=== PATIENT | male | born 1990 | race Caucasian/White ===

== ENCOUNTER 2023-10-31 18:36 | Emergency (ER) | payer BC, SELFPAY ==
[2023-10-31] VITALS (36 sets, daily range): BP systolic 129–200; BP diastolic 87–111; PULSE 51–104; RESP 10–23; TEMP 36.4; O2SAT 94–100
--- NOTE | 2023-10-31 18:30 | RT.EKG_ITS ---
APPROVED REPORT Exam: Resting ECG Reason for Exam: chest pain Patient Location: E HR:104 bpm ECG Measurements Heart Rate 104 AXIS WA 192 P 39 QRSd 121 QRS 28 QT 361 T -12 QTc 476 Conclusion Sinus tachycardi 104 no stemi
--- NOTE | 2023-10-31 19:00 | DI.RAD_ITS ---
Exam(s) XR CHEST 2V PA LATERAL EXAM: XR CHEST 2V PA LATERAL CLINICAL HISTORY: CP TECHNIQUE: 2D digital imaging was performed. Two views. COMPARISON: No exams were available for comparison FINDINGS: HEART: Normal size. Aorta: Not dilated. PULMONARY VASCULATURE: Normal. LUNGS: Clear. PLEURAL SPACE: No pleural effusion or pneumothorax. BONE:Unremarkable for age. Soft tissues: Unremarkable. IMPRESSION: No acute abnormality. DATA REPOSITORY: RADIATION DOSE DELIVERED:
--- NOTE | 2023-10-31 19:12 | W.ED.GENAD ---
Discharge Plan Discharge Details Chief Complaint: Chest Pain Clinical Impression: Chest pain of uncertain etiology, Intermittent palpitations, Blood pressure elevated without history of HTN, H/O gastroesophageal reflux (GERD), Hypokalemia Primary Care Provider: Unknown,Unknown ED Provider: Eloisa Rodrigues Home Meds and New Rx's Prescriptions: No Action No Known Home Meds Discharge Instructions Instructions: Hypokalemia (ED), GERD (Gastroesophageal Reflux Disease) (ED) Additional Instructions: Please call the care management team first thing in the morning to schedule PCP follow-up to discuss your elevated blood pressure readings, chest discomfort likely due to GERD, and intermittent palpitations. I recommend that you use famotidine (Pepcid) 20 mg twice daily for treatment of likely acid reflux. Avoid laying down after eating. Your workup today was reassuring. Your potassium was slightly low today, I recommend that you increase your intake of potassium in your diet, with oranges, potatoes, and bananas. Return to emergency care if you develop new chest pains, difficulty breathing, episodes of passing out, or if you are very worried and need to be rechecked again immediately Referrals: Care Management [Provider Group] HPI General Date/Time Provider Initiated Documentation: 10/31/23 18:44. HPI Narrative: Maria L is a 33-year-old male who presents to the emergency department for evaluation of sternal chest tightness/pinching that has occurred intermittently over the last 2 weeks, usually aggravated by laying down. He reports that he started with viral symptoms including a cough 2 weeks ago, cough is since resolved. This is accompanied by epigastric abdominal discomfort; he is not sure if these 2 are linked in time or occur concurrently. Denies fever/chills, congestion, shortness of breath, nausea/vomiting, change in bowel or bladder function. He does vape. Denies history of hypertension, hyperlipidemia, cardiac history, diabetes, or lung disease. Related Data Home Medications Medication Instructions Recorded Confirmed Unknown [No Known Home Meds] 10/31/23 10/31/23 Allergies Allergy/AdvReac Type Severity Reaction Status Date / Time No Known Allergies Allergy Verified 10/31/23 19:01 General Stated Complaint: Chest Pain RONI: 3 Review of Systems Narrative: see HPI Exam Const General: cooperative, healthy appearing, comfortable, no acute distress and well developed Nutritional Appearance: average body habitus Chest Chest: normal inspection of the chest and normal palpation of entire chest wall Resp Effort & Inspection: normal respiratory effort and able to speak in complete sentences Auscultation: clear to auscultation bilaterally Cardio Jugular venous pressure: no JVD Rate: regular rate Rhythm: regular rhythm GI Inspection: normal to inspection Palpation: soft, no pulsatile masses, not rigid and nontender Auscultation: normal bowel sounds Extrem General: normal to inspection and no pedal edema Course Vital Signs Vital signs: Vital Signs Temperature 36.4 C L 10/31/23 18:40 Pulse 104 H 10/31/23 18:40 Respiratory Rate 18 10/31/23 18:40 Blood Pressure 200/106 H 10/31/23 18:40 Pulse Oximetry 100 10/31/23 18:40 Temperature 36.4 C L 10/31/23 18:40 Temperature Source Tympanic 10/31/23 18:40 Pulse 104 H 10/31/23 18:40 Respiratory Rate 16 10/31/23 19:02 Respiratory Effort Normal, Non-Labored 10/31/23 19:02 Respiratory Depth Normal 10/31/23 19:02 Respiratory Pattern Normal 10/31/23 19:02 Blood Pressure 200/106 H 10/31/23 18:40 Blood Pressure Position Sitting 10/31/23 18:40 Pulse Oximetry 100 10/31/23 18:40 Oxygen Delivery Method Room Air 10/31/23 18:40 Oxygen Flow Rate 0 10/31/23 18:40 Pain Level 4 10/31/23 18:40 Medical Decision Making Maria L is a 33-year-old male who presents to the emergency department for evaluation of sternal chest tightness/pinching that has occurred intermittently over the last 2 weeks, usually aggravated by laying down. He reports that he started with viral symptoms including a cough 2 weeks ago, cough is since resolved. This is accompanied by epigastric abdominal discomfort; he is not sure if these 2 are linked in time or occur concurrently. Feels like his heart is racing when he has the chest discomfort. Denies fever/chills, congestion, shortness of breath, nausea/vomiting, change in bowel or bladder function. He does vape. Denies history of hypertension, hyperlipidemia, cardiac history, diabetes, or lung disease. Physical exam very reassuring. Easy work of breathing, lung sounds clear bilaterally. Normal heart sounds. No tenderness to palpation of chest wall. Abdomen is soft, nondistended, nontender to palpation. Normoactive bowel sounds. Moving all extremities equally. No obvious pedal edema or JVD. Vital signs notable for elevated blood pressure. DDx includes but is not limited to: ACS, GERD, esophageal spasm, gastritis, costochondritis cardiac arrhythmia, electrolyte imbalance I independently interpreted the following tests: EKG reassuring, sinus tach rate 104, IVCD with QRSD 121. CBC, CMP, TSH, serial troponins all reassuring. Only mild hypokalemia noted, potassium 3.2. Replenishment given in the emergency department. chest x-ray unremarkable, no acute findings noted such as cardiomegaly While in the emergency department Maria L received a GI cocktail with good improvement in symptoms. Overall cardiac workup today reassuring. GERD likely etiology of symptoms today. Advised use of OTC famotidine for acid reflux. As patient does not have a PCP at this time, referral made to care management for establishing care with PCP. Reviewed discharge instructions, including importance of follow-up with PCP, red flags indicate need for return to emergency care, and symptomatic management. Imaging Data Radiologic Study: Radiologist's impression: PROCEDURE INFORMATION: Exam: XR Chest Exam date and time: 10/31/2023 7:40 PM Age: 33 years old Clinical indication: Other: Chest pain TECHNIQUE: Imaging protocol: Radiologic exam of the chest. Views: 2 views. COMPARISON: No relevant prior studies available. FINDINGS: Lungs: Unremarkable. No consolidation. Pleural spaces: Unremarkable. No pleural effusion. No pneumothorax. Heart/Mediastinum: Unremarkable. No cardiomegaly. Bones/joints: Unremarkable. Orthopedic plate noted in the cervical spine. IMPRESSION: No acute findings. Quality:SDOH Health Related Social Needs: No Data to Display [facility] All Active Problems (Updated 10/31/23 @ 20:09 by Eloisa Bae) Hypokalemia (Acute) H/O gastroesophageal reflux (GERD) (Acute) Blood pressure elevated without history of HTN (Acute) Intermittent palpitations (Acute) Chest pain of uncertain etiology (Acute) Upper back pain (Acute) Fall (on) (from) other stairs and steps, initial encounter (Acute) Social History Smoking/Tobacco Use Status: Current every day Tobacco Type: e-cigarettes Smoking risk assessment performed?: Yes Alcohol Intake: current Alcohol Intake frequency: holidays/special occasions only Drug use: Never Substance use type: does not use
[2023-10-31] MEDS: Lidocaine 2% Viscous 15 ML CUP (19:21)
[2023-10-31] MEDS: Famotidine 20 MG/2 ML VIAL IVP (19:21)
[2023-10-31 19:26] LABS: HCT 42.7 % (40.0-50.0); HGB 14.6 g/dL (13.5-17.5); MCH 28.8 pg (27.0-33.0); MCHC 34.2 % (32.0-36.0); MCV 84 fL (80-95); MPV 9.6 fL (8.0-11.0); Platelet Count 251 10^3/uL (130-400); RBC 5.07 10^6/uL (4.36-5.78); RDW-SD 36.4 fL; WBC 7.84 10^3/uL (4.4-10.8)
[2023-10-31 19:49] LABS: ALT 43 U/L (16-63); AST 20 U/L (15-37); Albumin 3.9 g/dL (3.4-5.0); Alkaline Phosphatase 72 U/L (46-116); BUN 9 mg/dL (7-18); Bilirubin, Total 0.2 mg/dL (0.2-1.0); CREATININE 1.3 mg/dL (0.70-1.30); Calcium 9.3 mg/dL (8.5-10.1); Chloride 104 mmol/L (98-107); Estimated GFR 75.32 (mL/min/1.73m2); Glucose 117 mg/dL (74-106); Potassium 3.2 mmol/L (3.5-5.1); Sodium 143 mmol/L (136-145); TSH (W/Ref FT4) 1.64 uIU/mL (0.36-3.74); Total Protein 7.9 g/dL (6.4-8.2); Troponin I < 50 ng/L (< or =60)
--- NOTE | 2023-10-31 20:26 | DI.VRAD_ITS ---
PROCEDURE INFORMATION: Exam: XR Chest Exam date and time: 10/31/2023 7:40 PM Age: 33 years old Clinical indication: Other: Chest pain TECHNIQUE: Imaging protocol: Radiologic exam of the chest. Views: 2 views. COMPARISON: No relevant prior studies available. FINDINGS: Lungs: Unremarkable. No consolidation. Pleural spaces: Unremarkable. No pleural effusion. No pneumothorax. Heart/Mediastinum: Unremarkable. No cardiomegaly. Bones/joints: Unremarkable. Orthopedic plate noted in the cervical spine. IMPRESSION: No acute findings. Dictated and Authenticated by: Tyler Sanon MD. Ordering:SHERI Amin MD
[2023-10-31] MEDS: Potassium Bicarbonate/Cit AC 25 MEQ TABLET.EFF PO (20:44)
[2023-10-31 22:26] LABS: Troponin I < 50 ng/L (< or =60)
--- NOTE | 2023-11-01 00:02 | NUR.NOTE ---
Pt placed on care management referral list to establish primary care and f/u appt for PCP for palpitations, and chest pain.
== END 2023-10-31 22:45 | disposition home or self-care (01) ==
PROVIDERS: Emergency Provider Nurse Practitioner Family
DX: R03.0 Elevated blood-pressure reading, without diagnosis of hypertension (principal); R07.9 Chest pain, unspecified; R00.2 Palpitations; K21.9 Gastro-esophageal reflux disease without esophagitis; E87.6 Hypokalemia; F17.290 Nicotine dependence, other tobacco product, uncomplicated
CPT/HCPCS: 80053; 85027; 93005; 99285; 71046; 84443; 84484; 93010; 99284

== ENCOUNTER → 2024-01-20 00:07 | Outpatient (CLI) | payer OTHER, SELFPAY ==
--- NOTE | 2024-01-20 | DI.MRI_ITS ---
Exam(s) MR CERVICAL SPINE WO EXAM: MR CERVICAL SPINE WO CLINICAL HISTORY: NECK PAIN, ARM NUMBNESS, S/P C6-7 DISCECTOMY/FUSION 06/10/23 TECHNIQUE: Multiplanar multisequence MRI of the cervical spine was performed without intravenous con trast. COMPARISON: MR MR CERVICAL SPINE WO CONTRAST from 06/09/2023 Delete FINDINGS: BONES: Vertebral body heights are maintained. Since the prior examination, there is anterior cervical disc fusion at C6-C7. There is straightening of the normal cervical lordosis. Bone marrow signal in tensity is within normal limits. CERVICAL CORD: Craniovertebral junction is unremarkable. There is increased signal seen on the T2 mercy ghted images and STIR images in the spinal cord at the C6-C7 level. There is flattening of the anter ior aspect of the spinal cord at this level secondary to the degenerative changes. There has been a decrease in the degree of abnormal signal in the spinal cord and also a decrease in the degree of joleen tral spinal canal stenosis. The remainder of the cord shows normal signal and size. This is at the level of the anterior cervical disc fusion. SOFT TISSUES: Unremarkable. C2-3: No disc herniation or bulge is identified. No significant central spinal canal or neural forami nal stenosis. C3-4: No disc herniation or bulge is identified. Prominence of the left uncovertebral joint which cau ses mild narrowing of the left neural foramen. No significant central spinal canal or right neural f oraminal stenosis is present. C4-5: No disc herniation or bulge is identified. No significant central spinal canal or neural forami nal stenosis C5-6: There is prominence of the osteophyte disc complex with mild narrowing of the central spinal ca nal and flattening of the anterior aspect of the spinal cord. The neural foraminal stenosis is prese nt. C6-7: There is prominence of the osteophyte disc complex. There is mild narrowing of the spinal tigist l with flattening of the anterior aspect of the spinal cord. No significant neural foraminal stenosi s is seen. C7-T1: No disc herniation or bulge is identified. No significant central spinal canal or neural sandra inal stenosis IMPRESSION: 1. Since the prior examination, the patient has undergone an anterior cervical disc fusion at C6-C7. 2. There is a been a resultant decrease in the degree of central spinal canal stenosis and a decrease in the abnormal signal seen in the spinal cord at C6-C7 since 06/09/2023. 3. Multilevel degenerative changes in the cervical spine as described above. DATA REPOSITORY:
--- OUTSIDE RECORDS SUMMARY | 2024-01-20 00:09 | XMS_ITS | Encounter Summary ---
Author Organization [facility] Address [address] [place] [address] Care Team Providers Care P[employer] Salesperson Name Role Phone None, Provider Primary Care Provider Unavailabl e Reason for Visit * Reason Onset Date Comments Post-OP Follow Up 06/15/2023 Encounter Details Date Type Department Care Team (Late st Contact Info) Description 06/15/2023 Telephone [facility] Spine Program - [address] [place], [place] [phone] Pavithra Garcia RN Post-OP Follow Up Social History Tobacco Use Types Packs/Day Years Used Date Smoking Tobacco: Former Cigarettes Smokeless Tobacco: Current Comments:vapes Alcohol Use Standard Drinks/Week Comments Not Currently 0 (1 standard drink = 0.6 oz pur e alcohol) PRAPARE - Transportation Answer Date Re corded In the past 12 months, has l ack of transportation kept you from medical appointments or from getting medications? No 05/27 In the past 12 months, has l ack of transportation kept you from meetings, work, or from getting things needed for daily living? No 06/10/2023 Interpersonal Safety Answer Date Record ed Physically Hurt Never 05/20/2020 Verbally Threaten Not on file 05/20/2020 Sex and Gender Information Value Date Recorded Sex Assigned at Not on file Gender Identity Male 06/09/2023 14:11 EST Sexual Orientation Not on file documented as of this encounter Functional Status Functional Status Response Date of Assess ment Are you deaf or do you have serious difficulty h earing? No 06/10/2023 Are you blind or do you have serious difficulty seeing, even when wearing glasses? No 06/10/2023 Do you have serious difficul ty walking or climbing stairs? (5 years old or older) No 06/10/2023 Do you have difficulty dress ing or bathing? (5 years old or older) No 06/10/2023 Because of a physical, menta l, or emotional condition, do you have difficulty doing errands alone such as visiting a doctor's office or shopping? (15 years old or older) No 06/10/2023 Cognitive Status Response Date of Assessm ent Because of a physical, menta l, or emotional condition, do you have serious difficulty concentrating, remembering, or making decisions? (5 years old or older) No 06/10/2023 documented as of this encounter Miscellaneous Notes * Telephone Encounter - Pavithra Garcia RN - 06/15/2023 [id number] EST Post-op F/U call to patient. Patient reports feeling sore but pain is manageable and he is walking better. Numbness in pinky and ring finger remains the same as before surgery, but sensation from the waist down is improved. Having bowel movements but reports them as inconsistent. Taking stool softeners. Recommended keeping well hydrated, prune juice, prunes, or miralax for bowels if difficulty continues. Patient denies drainage from incision. Informed he may leave incision open to air after 5days if no drainage from incision and may shower, but no bathing. Recommended ice to incision for management of soreness and inflammation. Informed patient of post-op follow up appointment on 07/26/23 at 10:00, and provided him with clinic address and phone number. Patient lives 2 hours away from clinic and requested PT referral closer to home. PT order to be placed and mailed to patient along with rehab protocol. Encouraged patient to call clinic with any further questions or concerns. documented in this encounter Plan of Treatment Upcoming Encounters Date Type Department Care Team (Late st Contact Info) Description 06/04/2024 12:00 EST Office Visit [facility] Spine Program - [address] [place] [address] Rodney Lai MD [address] [place] [phone] documented as of this encounter Visit Diagnoses Not on filedocumented in this encounter Care Teams P[employer] Pet Supp[employer] Salesperson Relationship Specialty Start Date End Date None, Provider PCP - General 06/09/23 documented as of this encounter
--- OUTSIDE RECORDS SUMMARY | 2024-01-20 00:09 | XMS_ITS | Encounter Summary ---
Author Organization [facility] Address [address] [place] [address] Care Team Providers Care Roller Name Role Phone None, Provider Primary Care Provider Unavailabl e Reason for Visit * Reason Onset Date Comments Other 12/01/2023 Encounter Details Date Type Department Care Team (Late st Contact Info) Description 12/01/2023 Orders Only [facility] Spine Program - [address] [place] [address] Rodney Lai MD [address] [place] [phone] Neck pain (Primary Dx) Social History Tobacco Use Types Packs/Day Years [...] No 06/10/2023 documented as of this encounter Plan of Treatment Upcoming Encounters Date Type Department Care Team (Late st Contact Info) Description 06/04/2024 12:00 EST Office Visit [facility] Spine Program - [address] [place] [address] Rodney Lai MD [address] [place] [phone] documented as of this encounter Results * XR CERVICAL SPINE 4-5 VIEWS (12/05/2023 12:11 EDT) Anatomical Region Laterality Modality Left Computed Radiogr aphy 12/06/2023 13:3 3 EDT Impressions 12/06/2023 13:33 EDT FINDINGS/IMPRESSION: Unchanged C6-C7 fusion hardware, alignment, and degenerative changes as compared to 09/06/2023. As previously noted, the interbody graft is positioned along the anterior aspect of the disc space. There is some evidence of progression toward fusion compared to prior exams though the disc space remains readily visible and mature bony brigding is not clearly identified. No significant vertebral body height loss. No dynamic instability. Unremarkable soft tissues. [id number] Narrative 12/06/2023 13:33 EDT CERVICAL SPINE, 4 VIEWS HISTORY: Neck pain, prior fusion. TECHNIQUE: AP, lateral, flexion, extension views of the cervical spine. Resulting Agency Comment [id number] Procedure Note Sanchez Dewitt MD - 12/06/2023 CERVICAL SPINE, 4 VIEWS HISTORY: Neck pain, prior fusion. TECHNIQUE: AP, lateral, flexion, extension views of the cervical spine. IMPRESSION FINDINGS/IMPRESSION: Unchanged C6-C7 fusion hardware, alignment, and degenerative changes ascompared to 09/06/2023. As previously noted, the interbody graft ispositioned along the anterior aspect of the disc space. There is someevidence of progression toward fusion compared to prior exams though thedisc space remains readily visible and mature bony brigding is not clearlyidentified. No significant vertebral body height loss. No dynamicinstability. Unremarkable soft tissues. [id number] Rodney Lai MD IMG DIAGNOSTIC IMAG ING ORDERABLES documented in this encounter Visit Diagnoses Diagnosis Neck pain- Primary Cervicalgia Neck pain Cervicalgia documented in this encounter Care Teams Roller Relationship Specialty Start Date End Date None, Provider PCP - General 06/09/23 documented as of this encounter
--- OUTSIDE RECORDS SUMMARY | 2024-01-20 00:09 | XMS_ITS | Referral Summary ---
Author Organization [facility] Address [address] [place] [address] Care Team Providers Care Checkout Supervisor Name Role Phone None, Provider Primary Care Provider Unavailabl e Encounters Date Type Department Care Team Description 12/20/2023 Telephone [facility] Spine Program - [address] [place], [place] [phone] Rodney Lai MD Other 12/20/2023 Telephone [facility] Spine Program - [address] [place], [place] [phone] Rodney Lai MD Orders (Non Pre-visit) (MRI screen form ) 12/05/2023 Orders Only [facility] Spine Program - [address] [place], [place] [phone] Rodney Lai MD S/P cervical spinal fusion (Primary Dx); Neck pain; Cervical myelopathy ([facility]) 12/05/2023 12:00 EDT - 12/05/2023 23:59 EDT Hospital Encounter [address] [place], [place] [phone] Neck pain Discharge Disposition: Home or Self Care 12/05/2023 12:00 EDT Office Visit [facility] Spine Program [place] [address] Rodney Lai MD S/P cervical spinal fusion (Primary Dx) 12/01/2023 Orders Only [facility] Spine Program [place] [address] Rodney Lai MD Neck pain (Primary Dx) from Last 3 Months Allergies No known active allergies Medications Medication Sig Dispensed Refills Start Date End Date Status acetaminophen (TYLENOL) 500 mg tablet Take 2 Tablets by mouth every 6 hours. 06/11/2023 Active Additional Information Patient not taking.Reported on 07/26/2023 methocarbamoL (ROBAXIN) 500 mg tablet Take 2 Tablets by mouth every 6 hours as needed (muscle spasms). 30 Tablet 06/11/2023 Active Additional Information Patient not taking.Reported on 07/26/2023 oxyCODONE (ROXICODONE) 5 mg immediate release tablet Take 1-3 Tablets by mouth every 4 hours as needed for Pain. 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..] 14:11 EST Sexual Orientation Not on file Last Filed Vital Signs Vital Sign Reading Time Taken Comments Blood Pressure 135/84 06/11/2023 1259 EST Pulse 78 06/10/2023 2046 EST Temperature 37.9 ??C (100.2 ??F) 06/11/2023 1259 EST Respiratory Rate 20 06/11/2023 1259 EST Oxygen Saturation 96% 06/11/2023 1259 EST Inhaled Oxygen Concentration - - Weight 109.3 kg (241 lb) 06/10/2023 0031 EST Height 188 cm (6' 2) 06/10/2023 0031 EST Body Mass Index 30.94 06/10/2023 0031 EST Functional Status Functional Status Response Date of [...] (5 years old or older) No 06/10/2023 Plan of Treatment Upcoming Encounters Date Type Department Care Team (Late st Contact Info) Description 06/04/2024 12:00 EST Office Visit [facility] Spine Program - [address] [phone] Rodney Lai MD [address] [place] [phone] Medical Devices Implanted Type Area Epic Interface Analyst Device Identifier Shelf Expiration Date Model / Serial / Lot Bone Spacer Triad 7mm X 11mm X 14mm [id number] - [id number] Implanted:Qty : 1 on 06/10/2023 by Rodney Lai MD at [facility] Bone N/A: Spine Cervical [employer] 02/03/2028 [id number] / [id number] / Plate Acp 1.9h 24mm 1 Level - [id number] Implanted:Qty : 1 on 06/10/2023 by Rodney Lai MD at [facility] Plate Implant N/A: Spine Cervical [employer] [id number] / / Screw Acp 3.5 X 17mm Self-Drill Fixed - [id number] Implanted:Qty : 3 on 06/10/2023 by Rodney Lai MD at [facility] Screw Implant N/A: Spine Cervical [employer] [id number] / / Screw Acp 4.0 X 17mm Self Tap Fixed - [id number] Implanted:Qty : 1 on 06/10/2023 by Rodney Lai MD at [facility] Screw Implant N/A: Spine Cervical [employer] [id number] / / Procedures Procedure Name Priority Date/Time Associated Diagnosis Comments XR CERVICAL SPINE 4-5 VIEWS Routine 12/05/2023 12:11 EDT Neck pain from Last 3 Months Results * XR CERVICAL SPINE 4-5 VIEWS [...] loss. No dynamic instability. Unremarkable soft tissues. [id number] Narrative 12/06/2023 13:33 EDT CERVICAL SPINE, 4 VIEWS HISTORY: Neck pain, prior fusion. TECHNIQUE: AP, lateral, flexion, extension views of the cervical spine. Resulting Agency Comment [id number] Procedure Note Sanchez Dewitt MD - 12/06/2023 [...] height loss. No dynamicinstability. Unremarkable soft tissues. [id number] Rodney Lai MD IMG DIAGNOSTIC IMAG ING ORDERABLES from Last 3 Months Advance Directives For more information, please contact: [phone] * Full Code (Latest Code Status on File) Date Activated Date Inactivated Comments 06/10/2023 2:35 06/11/2023 18:40 Question Answer Comments When the patient has NO PULSE: Full Code / CPR Who Made the Decision? Patient Care Teams Checkout Supervisor Relationship Specialty Start Date End Date None, Provider PCP - General 06/09/23
--- OUTSIDE RECORDS SUMMARY | 2024-01-20 00:09 | XMS_ITS | Encounter Summary ---
Author Organization [facility] Address [address] [place] [address] Care Team Providers Care Canopy Stringer Name Role Phone None, Provider Primary Care Provider Unavailabl e Reason for Visit * Reason Onset Date Comments Orders (Non Pre-visit) 12/20/2023 MRI scree n form Encounter Details Date Type Department Care Team (Late st Contact Info) Description 12/20/2023 Telephone [facility] - [address] [place] [address] Rodney Lai MD [address] [place] [phone] Orders (Non Pre-visit) (MRI screen form ) Social History Tobacco Use Types Packs/Day Years [...] encounter Miscellaneous Notes * Telephone Encounter - Nikole Hernandez MA - 12/20/2023 1112 EDT Called and left a message for patient regarding this. Asked him to return my phone call. * Telephone Encounter - Sonali Gomez - 12/20/2023 0980 EDT Reason for Call: Orders (Non Pre-visit) (MRI screen form ) Summary: Radiology called they are needing the MRI screening form filled out and sent to them before they can schedule pt for MRI. Appointment Offered? La Gomez 12/20/2023 10:00 documented in this encounter Plan of Treatment Upcoming Encounters Date Type Department Care Team (Late st Contact Info) Description 06/04/2024 12:00 EST Office Visit [facility] [place] [address] [place] [address] Rodney Lai MD [address] [place] [phone] documented as of this encounter Visit Diagnoses Not on filedocumented in this encounter Care Teams Canopy Stringer Relationship Specialty Start Date End Date None, Provider PCP - General 06/09/23 documented as of this encounter
--- OUTSIDE RECORDS SUMMARY | 2024-01-20 00:09 | XMS_ITS | Encounter Summary ---
Author Organization [facility] Address [address] [place] [address] Care Team Providers Care Assistant District Attorney Name Role Phone None, Provider Primary Care Provider Unavailabl e Reason for Referral * Specialty Diagnoses / Procedures Referred By Contac t Referred To Contact Brett Acosta MD [address] [place] [phone] Referral ID Status Reason Start Date Expiration Date Visits Re quested Visits Authorized Comments See Rodney Lai MD. [facility] is located at [address] [place] [address]. Call [phone] if no appointment is scheduled. * Specialty Diagnoses / Procedures Referred By Contac t Referred To Contact Brett Acosta MD [address] [place] [phone] Referral ID Status Reason Start Date Expiration Date Visits Re quested Visits Authorized Comments - Numbness in your extremities - Redness or drainage from your incision - Odor from your incision - Pain unrelieved by medication - Temperature greater than 101 degrees Fahrenheit * Consult (Routine/Next Available) - Receiving Office to Obtain Authorization Specialty Diagnoses / Procedures Referred By Contac t Referred To Contact Orthopedic Surgery Diagnoses 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HCC-CMS) [place] [id number] [facility] [address] [place] [address] [facility] Orth[facility]ine [address] [place] [id number] Referral ID Status Reason Start Date Expiration Date Visits Requested Visits Authorized [id number] Receiving Office to Obtain Authorization Specialty Services Required 06/10/20 1 1 Question Answer Reason for Request: ACDF scheduled 06/10/23 Reason for Visit * Reason Comments Neck Pain Ambulatory to triage with family as transfer form [facility]. Fall 1 month ago and had intermittent bilateral arm numbness and saddle anesthesia. Had fall today after slipping on ice which increased pain and symptoms. Walked with steady gait. * Auth/Cert (Routine) Specialty Diagnoses / Procedures Referred By Elana stoll Referred To Contact Diagnoses Cervical myelopathy (HCC-CMS) 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HCC-CMS) Cord compression at C6-C7 with severe spinal stenosis Referral ID Status Reason Start Date Expiration Date Visits Re quested Visits Authorized [id number] 1 1 Encounter Details Date Type Department Care Team (Late st Contact Info) Description 06/10/2023 0:32 EST - 06/11/2023 16:15 EST Hospital Encounter [facility] [address] [place] [id number] Julian, MD Kerry [address] [facility], Level [address] [place] [phone] Rodney Lai MD [address] [place] [phone] 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HCC-CMS) (Primary Dx); Cervical myelopathy (HCC-CMS) Discharge Disposition: Home or Self Care Social History Tobacco Use Types Packs/Day Years [...] on file documented as of this encounter Last Filed Vital Signs Vital Sign Reading [...] Body Mass Index 30.94 06/10/2023 0031 EST documented in this encounter Functional Status Functional Status Response [...] No 06/10/2023 documented as of this encounter Discharge Summaries * Narayan Bryant MD - 06/11/2023 1404 EST Orthopedic Discharge Summary Primary Care Provider: Provider None Attending Physician: No att. providers found Admit Date: 06/10/2023 Discharge Date: 06/11/2023 Disposition: Home or self care Problems and Procedures Admitting Diagnosis: C6-C7 NHP w/ cervical myelopathy Principal/Final Diagnosis: same Additional Problems Managed in the Hospital Active Hospital Problems Diagnosis Date Noted *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HCC-CMS) 06/10/2023 Cervical myelopathy (HCC-CMS) 06/10/2023 Cervical spinal cord compression (HCC-CMS) 06/09/2023 Resolved Hospital Problems No resolved problems to display. Principal Procedure: C6-7 ACDF Date: 06/10/2023 Secondary Procedures: none Hospital Course Maria L Douglas is a 33 y.o. male with no significant past medical history who presented with 1.5months of bilateral ulnar hand numbness, heaviness in his legs, and numbness from just above his umbilicus down to his knees. On imaging he had significant central and lateral recess stenosis at C5-6secondary to a disc bulge with a posterior disc osteophyte most significant at that level. Patient was admitted for C6-[address] Lai. Postop, he was started on a multi-modal pain management regimen. Patient was evaluated by PT, had good pain management on PO meds, and was able to urinate without problem. Upright x- rays showed good alignment. The patient was discharged 06/11/2023 in stable condition. Allergies and Immunizations No Known Allergies Immunization History Administered Date(s) Administered Covid-19 Ad26 Vaccine (JAMIE COVID-19) PF 0.5 ml IM (18 yrs+) 12/16/2020 DT Vaccine <7YO IM 12/17/2004 MMR Vaccine SQ 12/17/2004 Varicella (Chickenpox) vaccine (VARIVAX) SQ 12/17/2004, 04/18/2012 Transition of Care Plans Condition at Discharge Stable Assessment at Discharge Vital signs: No data found. Results Pending at Discharge Test results still pending from this admission None Relevant Studies at Discharge none Last Lab Results at Discharge BUN: Lab Results Component Value Date BUN 12 06/11/2023 Creatinine: Lab Results Component Value Date CREATININE 1.20 06/11/2023 CBC: Lab Results Component Value Date WBC 10.04 06/11/2023 RBC 4.90 06/11/2023 HGB 14.2 06/11/2023 HCT 41.8 06/11/2023 MCV 85 06/11/2023 MCH 29.0 06/11/2023 MCHC 34.0 06/11/2023 PLT 254 06/11/2023 DIFFTYPE Auto 06/11/2023 Electrolytes: Lab Results Component Value Date NA 138 06/11/2023 K 4.6 06/11/2023 CL 104 06/11/2023 CO2 25 06/11/2023 Discharge Follow Up Upcoming Appointments Jul 04, 2023 11:00 Therapy Surgery Aftercare with Miriam Smith, PT [facility] Rehabilitation Therapy - [facility] (--) [address] [place] [address] Jul 26, 2023 9:00 OFFICE VISIT 60 with Miriam Smith, PT [facility] Rehabilitation Therapy - [facility] (--) [address] [place] [address] Jul 26, 2023 10:00 (Arrive by 9:45) Post Op Visit with Rodney Lai MD [facility] Spine Program - [facility] (--) [address] [place], [place] [address]janel Leggett [place] [phone] Sep 06, 2023 12:00 (Arrive by 11:45) Office Visit with Rodney Lai MD [facility] Spine Program - [facility] (--) [address] [place] [address] Dr Leggett [place] [phone] Follow-up appointments and procedures Appointments See Rodney Lai MD. [facility] is located at [address] [place] [address]. Call [phone] if no appointment is scheduled. Authorizing Provider: Stoney Copeland MD Call your doctor if you experience any of the following symptoms: - Numbness in your extremities - Redness or drainage from your incision - Odor from your incision - Pain unrelieved by medication - Temperature greater than 101 degrees Fahrenheit Authorizing Provider: Stoney Copeland MD Amb Consult/Follow Up Orthopedics - [facility] Reason for Request: ACDF scheduled 06/10/23 Authorizing Provider: Michael Arthur MD SETH MOFFATT, MD 06/20/2023 12:35 documented in this encounter Discharge Instructions * Discharge Instr - AVS First Page* Cathi Russell PA-C - 06/10/2023 14:03 EST You have undergone the following operation: Anterior Cervical Decompression and Fusion Immediately after the operation: Activity: ? You should not lift anything greater than 10 lbs for 2 weeks. ? You will be more comfortable if you do not sit in a car or chair for more than ~45 minutes without getting up and walking around. ? You cannot drive while taking pain medications, or while wearing a hard cervical collar Rehabilitation / Physical Therapy: ? 2-3 times a day you should go for a walk for 15-30 minutes as part of your recovery. You can walkas much as you can tolerate. ? You should have a physical therapy visit scheduled ~3 weeks post-operatively, at which point moredirected therapy will begin Swallowing: ? Difficulty swallowing is not uncommon after this type of surgery. This should resolve over time. Please take small bites and eat slowly. Removing the collar while eating can be helpful. Cervical Collar / Neck Brace: ? If you have been given a soft collar, it is meant to be used for comfort - wear it if you feel ithelps you. You should remove the collar to take a shower or eat. You should avoid any excessive or strenuous motion of your neck, but gentle range of motion as pain will allow is encouraged. ? If you have been given a hard cervical collar, this is meant to be worn most of the time. You should remove the collar at least 3x per day for 15 minutes to let your skin air out. Do this while seated in a comfortable and safe position. You may remove the collar to take a shower or eat. You should avoid any significant motion of your neck while the collar is off. Careful not to fall as well - ashower chair is recommended. Wound Care: ? Keep the wound covered and dry for 5 days. If the bandage from surgery remains clean and intact, it can stay in place. If the dressing needs to be changed, just replace with a dry gauze pad and tape. If you have a waterproof dressing it can be used in the shower. ? Once the incision is completely dry for 24 hours (no spotting on gauze) you can leave the incision uncovered, and at this point you may get the incision wet in the shower. Do not soak the incision in a bath or pool. ? If the incision starts draining again at anytime after surgery, do not get the incision wet. Callthe office at that time. Medications: ? Unless otherwise directed, you should resume taking your normal home medications. ? You have also been given additional medications to control your pain and muscle spasm. Please allow 48 hours for any refill of narcotic prescriptions, so plan ahead. Follow up: ? Your follow-up appointments should have been arranged when your surgery was booked. If you do notknow when you are scheduled to follow-up, please call the office at [phone]. You should have awound check and physical therapy visit scheduled at ~2-3 weeks post-operatively, and a visit with your surgeon at ~6 weeks post-operatively. Please call the office if you have a fever>101.5 degrees Fahrenheit, drainage from your wound, or have any questions. [phone] documented in this encounter Medications at Time of Discharge Medication Sig Dispensed Refills Start Date End Date acetaminophen (TYLENOL) 500 mg tablet Take 2 Tablets by mouth every 6 hours. 06/11/2023 methocarbamoL (ROBAXIN) 500 mg tablet Take 2 Tablets by mouth every 6 hours as needed (muscle spasms). 30 Tablet 06/11/2023 oxyCODONE (ROXICODONE) 5 mg immediate release tablet Take 1-3 Tablets by mouth every 4 hours as needed for Pain. Daily Max: 90 mg 60 Tablet 06/11/2023 polyethylene glycol 3350 (MIRALAX) 17 gram packet Take 17 g by mouth daily for 14 days. 14 Packet 06/11/2023 06/25/2023 documented as of this encounter Ordered Prescriptions Prescription Sig Dispensed Refills Start Date End Da te oxyCODONE (ROXICODONE) 5 mg immediate release tablet Take 1-3 Tablets by mouth every 4 hours as needed for Pain. Daily Max: 90 mg 60 Tablet 06/11/2023 methocarbamoL (ROBAXIN) 500 mg tablet Take 2 Tablets by mouth every 6 hours as needed (muscle spasms). 30 Tablet 06/11/2023 acetaminophen (TYLENOL) 500 mg tablet Take 2 Tablets by mouth every 6 hours. 06/11/2023 polyethylene glycol 3350 (MIRALAX) 17 gram packet Take 17 g by mouth daily for 14 days. 14 Packet 06/11/2023 06/25/2023 documented in this encounter Discharge Disposition Disposition Code Departure Means Destination Comment s Home or Self Fpc documented in this encounter Progress Notes * Melissa Chacon, PT - 06/11/2023 1414 EST [facility] Acute Therapy [facility] Physical Therapy Contact Note Date of Service: 06/11/2023 PT order received. Chart reviewed. Spoke with RN who stated pt was independent in room. PT met with patient in room. Pt reports that he is walking much better than prior to surgery. He isindependent in his room. He is looking forward to going home and does not feel he needs a PT evaluation prior to discharge. PT will discontinue order at this time. Please rerefer if pt status changes. MELISSA CHACON, PT 06/11/2023 14:14 * Yoel Valerio MD - 06/11/2023 5355 EST Orthopaedic Progress Note PROBLEM: Cervical myelopathy PROCEDURE: C6-[address] Lai on 06/10/23 24 HOUR EVENTS: OR for above SUBJECTIVE: Mr. Douglas feels much better since surgery. He described a distinct line on his abdomen where below that line he has significant sensory loss. That has significantly improved. Still has some numbness along his inner thighs but that has also improved and denies bowel or bladder incontinence. His hands feel better too. Still has some mild numbness along his 4th and 5th fingers bilaterally but that has also improved since surgery. His balance is better and he has been walking about the room without difficulty. His spasms have improved. He is passing gas and voiding. Denies difficulty swallowing. No other complaints, denies CP/SOB, new paresthesias. OBJECTIVE: Gen: NAD, AOx3 UE Motor: Strength Deltoid (C5) Biceps (C5, 6) Triceps (C7) Wrist ext (C7, C8) Wrist flex (C8, T1) Sales Designer (T1) Right 5/5 5/5 5/5 5/5 5/5 5/5 Left 5/5 5/5 5/5 5/5 5/5 5/5 UE Reflexes Reflexes Brachioradialis (C5) Biceps (C5) Triceps (C7) Carlin Right 1+ 1+ 1+ neg Left 1+ 1+ 1+ neg Diminised sensation along the 4th and 5th fingers bilaterally but improved from surgery. Otherwise SILT in C5-T1 dermatomes Radial pulses 2+ LE Motor: Strength Iliopsoas (L2, 3) Quad (L3, 4) Hamstring (L5, S1) Tib Ant (L4, 5) EHL (L5) GSC (S1, S2) Right 5/5 5/5 5/5 5/5 5/5 5/5 Left 5/5 5/5 5/5 5/5 5/5 5/5 LE Reflexes Reflexes Patella (L3/4) Achilles (S1) Clonus Right 2+ 1+ 5 beats Left 2+ 1+ 5 beats Slightly diminished sensation along the inner thighs bilaterally but improved from surgery. Otherwise SILT in L3-S1 nerve distributions DP pulses 2+ Dressing with mild strike through but c/d/i ASSESSMENT/PLAN: Maria L Douglas is a 33 y.o. male with no significant PMH presented with leg heaviness, trouble with coordination, and imaging findings consistent with cervical myelopathy. He underwent C6-7 ACDF and has significantly improved. His drain was removed this morning. Plan to obtain up rights today and anticipate dc home later today Plan: Continue pain control Activity: WBAT, AAT, no spine restrictions Uprights: pending DVT Prophy: Ambulate, SCDs Diet: regular PT Discharge Recommendation: pending eval Dispo: Patient is ready for DC when [ - ] Upright radiographs [ + ] Tolerating PO diet [ + ] Pain controlled on oral agents [ + ] Mcallister DC'd and urinating independently [ + ] Passing BM or flatus Yoel Valerio MD 06/11/2023 7:18 * Lyly Qureshi RN - 06/10/20232002 EST FOUR EYES SKIN ASSESSMENT Four Eyes skin assessment was performed on admission to the unit by Lyly Qureshi RN and Yumiko De La Fuente RN. Patient has the following devices at the time of this assessment: Peripheral IV and O2 sat probe. Device related pressure injury present? No Areas of concern: Fill in detail for areas of concern [] Occiput [] Nose [] Ear [] Lip [] Scapula [] Spinous process [] Shoulder [] Elbow [] Iliac crest [] Sacrum/coccyx [] Ischial tuberosity [] Trochanter [] Knee [] Malleolus [] Heel [] Toe [x] Other: Surgical incision to anterior neck Last Lacho Score: 21 Instructions: Add LDA for any identified wounds Add [place] image for any suspected PI or non surgical wounds Order wound consult if suspected PI identified If Lacho is < or = to 16, initiate Pressure Injury Prevention Bundle ([id number]). 06/10/2023 20:03 * Brett Acosta MD - 06/10/20231939 EST ORTHO POST OP NOTE Procedure: C6-7 ACDF S: Pt reports pain well controlled. Already up and moving. No difficulty with swallowing or breathing. Numbness in hands/legs still there but maybe improved. Denies N/V/F/C/CP/SOB. O: BP (!) 134/101 (BP Cuff Location: Right arm, BP Patient Position: Semi fowlers) Pulse 71 Temp 37.7 ??C (99.9 ??F) (Tympanic) Resp 12 Ht 188 cm (74) Wt (!) 109.3 kg (241 lb) SpO2 99% BMI 30.94 kg/m?? Gen: NAD Ext: WWP Dressings: c/d/I BUE: Decreased sensation in C8 distribution, otherwise SILT 5/5 strength in all motor groups BUE Sensation decreased from lower abdomen to thighs, improved from prior to surgery 5/5 strength BLE in all motor groups A/P: Mari aL Douglas is a 33 y.o. male s/p above, doing well. 1) Continue current management. BRETT ACOSTA MD 06/10/2023 19:40 0192 * Nikole Dupont RN - 06/10/2023 0624 EST FOUR EYES SKIN ASSESSMENT Four Eyes skin assessment was performed on admission to the unit by Nikole Dupont RN and Pierre Elliott RN. Patient has the following devices at the time of this assessment: Cervical collar and Peripheral IV. Device related pressure injury present? No All skin intact verified by: Nikole Dupont RN. Last Lacho Score: 19 Instructions: Add LDA for any identified wounds Add [place] image for any suspected PI or non surgical wounds Order wound consult if suspected PI identified If Lacho is < or = to 16, initiate Pressure Injury Prevention Bundle ([id number]). 06/10/2023 6:24 documented in this encounter H&P Notes * Fahad Bedolla MD - 06/10/2023 0451 EST Please see my consult note from 06/10/2023 documented in this encounter Consult Notes * Fahad Bedolla MD - 06/10/2023 0055 EST ORTHOPAEDIC SURGERY CONSULTATION ] 06/10/2023 0:55 Consultation requested by Cece Lynn Regarding concern for cervical myelopathy HPI: Maria L Douglas is a 33 y.o. male with no significant past medical history presents as a transfer from [facility] with concerns for cervical myelopathy. He states that approximately 1-1/2 months ago he was coming down the stairs and tripped falling onto his back, had worsening neck pain and had p aresthesias that developed in his ulnar 2 digits bilaterally as well as heaviness and numbness in his thighs and trunk. He presented to [facility] after another fall yesterday also when he was at work and slipped on the ice and fell and whipped his neck although denies any head strike. He was able toget to his feet afterwards and presented due to persistence and slightly worsening of neck pain. Hehad intermittent neck pain dating back a year but this significantly worsened after the fall a month and a half ago. He has had paresthesias in his ulnar 2 digits extending up his ulnar hand to the level of his wrist bilaterally which waxes and wanes but has been mostly constant over the past several weeks. From his leg standpoint he feels thigh heaviness and dense numbness from just above his umbilicus distal to his knees with paresthesias and decreased sensation throughout his entire lower legs but less then more proximally. He also has felt gait imbalance and feels more wobbly compared to before his initial fall. He denies any saddle anesthesia, he denies any episodes of incontinence bowel or bladder, he has felt as if he has decreased bowel frequency but still has sensation that he has to go and the urge to void and have a bowel movement. He also notes tremors where his leg uncontrollably shakes which have not increased in frequency and have been present for a month and a half. He also endorses dropping objects still feels as if he can hold a pencil and button his shirt although feels like he has had worsening in his handwriting. Ambulatory Status: Independent at baseline Last Meal: 3 PM Anticoagulation: Denies Code Status: Full Past Surgical History Discussed: Hernia surgery remotely 10 years ago Social History: He endorses daily vaping use, 1 alcoholic beverage every 3 months, denies drug use.He lives in [facility] he has a daughter and fianc?? 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 Charted Surgical History: No past surgical history on file. Charted Medications: Prior to Admission medications Not on File Charted Allergies: No Known Allergies Charted Family History: No family history on file. Charted Social History: Patient lives in [address] [place] [address]. Occupational History Not on file he reports that he has quit smoking. His smoking use included cigarettes. He uses smokeless tobacco. He reports that he does not currently use alcohol. He reports that he does not currently use drugs. ROS: A pertinent review of systems was completed and is negative except for those mentioned in the HPI. Objective: Blood pressure (!) 177/107, pulse 101, temperature 36.8 ??C (98.2 ??F), temperature source Oral, resp. rate 18, height 188 cm (74), weight (!) 109.3 kg (241 lb), SpO2 100 %. Gen: Awake, alert, no apparent distress, answering questions appropriately Cards: Appears well perfused Pulm: Non-labored breathing Focused Spine/MSK: Back: No tenderness in in C-spine,T-spine, L-spine. No bogginess, no step offs, no abrasions/ecchymoses Right Upper Extremity Left Upper Extremity Deltoid (C5) 5/5 Biceps (C5, 6) 5/5 Triceps (C7) 5/5 Wrist/Finger Ext (C7, 8) 5/5 Wrist/Finger Flex (C8, T1) 5/5 Interrosei (T1) 5/5 Sales Designer (T1) 5/5 Deltoid (C5) 5/5 Biceps (C5, 6) 5/5 Triceps (C7) 5/5 Wrist/Finger Ext (C7, 8) 5/5 Wrist/Finger Flex (C8, T1) 5/5 Interrosei (T1) 5/5 Sales Designer (T1) 5/5 Brachioradialis (C5) 1+, Bicep (C5) 1+, Tricep (C7) 1+ Subtle positive Carlin Brachioradialis (C5) 1+, Bicep (C5) 1+, Tricep (C7) 1+ Positive Carlin Sensation intact (C5/6/7/8, some decrease sensation in his ulnar 2 digits in the ulnar aspect of his middle finger. Sensation intact (C5/6/7/8/T1 decree sensation in the ulnar 2 digits Palpable radial pulse Palpable radial pulse Right Lower Extremity Left Lower Extremity Iliopsoas(L2, 3) 5/5 Quadricep (L3, 4) 5/5 Hamstrings (L5, S1) 5/5 Tibialis Anterior (L4, 5) 5/5 Gastroc/Soleus (S1, S2) 5/5 Extensor Hallicus (L5) 5/5 Iliopsoas(L2, 3) 5/5 Quadricep (L3, 4) 5/5 Hamstrings (L5, S1) 5/5 Tibialis Anterior (L4, 5) 5/5 Gastroc/Soleus (S1, S2) 5/5 Extensor Hallicus (L5) 5/5 Patellar 3+, Achilles 3+ Equivocal Babinksi, sustained clonus on the right Patellar 3+, Achilles 3+ Equivocal Babinksi, even moving his toes he has sustained clonus in his left leg and tremors in hisleft upper thigh Decreased sensation to 2 inches above his umbilicus distally in the lower extremity to the level ofthe knee. Paresthesias from his knee distally to his toes Decreased sensation approximately 2 inches above his umbilicus distally in the lower extremity to the level of the knee, paresthesias from his knee distally to his toes Palpable DP pulse Palpable DP pulse No gross deformity of any long bones or major joints of the extremities. He has a shorter lower with gait, no significant gait imbalance clinically however he feels imbalanced. No functional GSC or TA weakness. No obvious myelopathic gait. Rectal Exam: intact perianal sensation intact. Intact tone. Intact voluntary contraction. intact deep sensation. Intact pinprick sensation Labs: Imaging: MRI of the cervical spine: Demonstrates a disc herniation at C6-7 with severe central and lateral recess stenosis bilaterally,small disc protrusion at the level of C5-6 mostly central and left-sided lateral recess stenosis. Some small degree of central stenosis at C7-T1. Mild foraminal stenosis at C6-7 bilaterally greater than left. There is STIR cord signal change from the inferior C6 level to the T1 level. MR T and L-spine demonstrates no centrally compressive etiology no significant foraminal stenosis, some annular hypertrophy at L5-S1. CT cervical spine: Demonstrates no acute fractures or traumatic malalignment at C6-7 there is a significant posterior disc osteophyte as well as a smaller disc at C5-6 and C7-T1. Upright AP, lateral of the cervical spine demonstrates loss of typical cervical lordosis and the posterior disc osteophyte at C6-7 is visualized again. No significant asymmetry of the facets, degenerative disc height loss most significant at C6-7 and C7-T1 on the swimmer's view. Assessment: Maria L Douglas [id number] 1990 Maria L Douglas is a 33 y.o. Male with no significant past medical history is presenting with 1 and half months of bilateral ulnar hand numbness, heaviness in his legs, and numbness from just abovehis umbilicus down to his knees. He is significantly hyperreflexic inks in his lower extremities assustained clonus bilaterally positive Apolinar's in his upper extremities. He has no objective weakness. He has normal rectal tone intact voluntary contraction, PVR less than 20 and no evidence of bowel or bladder incontinence or saddle anesthesia. On imaging he has significant central and lateral recess stenosis at C5-6 secondary to a disc bulge with a posterior disc osteophyte most significant at that level. Given the persistent nature of his symptoms we will plan to admit for C6- [address] Lai tomorrow when the OR is available due to his cervical myelopathy. Plan Admit to orthopedics for the above N.p.o. pending the OR No activity restrictions 2 g Ancef on-call the OR Maintenance IV fluids Multimodal pain control Plan for the OR tomorrow when the OR is available. Discussed with: Dr. Ming BEDOLLA MD Orthopedic Surgery PGY2 Pager: [phone] Pre Op Checklist Pre Op Checklist [x] Consent completed [] Extremity signed [x] NPO at midnight (ok to give sips of water with mediations) [x] Insert PIV panel ordered (20 gauge or larger) [x] Case booked Labs: [x] CBC & Coags ordered [x] Type and Screen, ABO [] ([x] Not applicable) UPT (female of child bearing age, 12-55) Medications: [x] mIVF ordered [x] Pre-operative antibiotics ordered [] ([x] Not applicable) Anticoagulation/Anti-platelet discontinued (aspirin ok to continue) ACS multitrauma patients continue lovenox perioperitavely as default [] ([x] Not applicable) Insulin (adjust Q6 with NPO status / adjust long acting if appropriate) [] ([x] Not applicable) ARBS/MARCY medications discontinued Associated attestation - Rodney Lai MD - 06/10/2023 1050 EST Attestation: I examined the patient on 06/10/2023 and agree with the findings documented in the resident note. Patient with severe C6-7 stenosis, cord signal change and 1 month of decreased LE sensation, altered gait, constipation. 5/5 biceps, triceps. Can fully extend neck without symptoms. Discussed findings and operative plan. Discussed risks including incomplete recovery and small chance of worsened function including paralysis. All questions answered, plan for C6-7 ACDF later today. Rodney Lai MD documented in this encounter OR Notes * OR Surgeon - Rodney Lai MD - 06/10/2023 1439 EST C6/7 Anterior cervical discetomy and fusion Operative Note Date: 06/10/2023 Location: [facility] OR Name: Maria L Douglas, : 1990, SURGEION: Rodney Lai PIG FARM MANAGER: Derek Acosta PREOPERATIVE DIAGNOSES: 1. Herniated cervical disc with cervical myelopathy POSTOPERATIVE DIAGNOSES: Same as preop PROCEDURES: 1. Anterior cervical discectomy and arthrodesis C6-7 for decompression of spinal cord (61822) 2. Insertion of anterior instrumentation, C6-7 (73947) 3. Insertion of allograft, structural (88711) INSTRUMENTATION: Nuvasive ACP ANESTHESIA: General endotracheal. ESTIMATED BLOOD LOSS: 25 mL CONDITION: Stable. FINDINGS: soft disc herniation, significant central stenosis SPECIMENS: none. DRAINS: small hemovac COMPLICATIONS: none noted CONDITION: Stable. INDICATIONS: see preop records PROCEDURE: The patient was brought back to the operative theater and general endotracheal intubation was accomplished by the anesthesia team. The patient was positioned supine on a regular table. Prepositional baseline SSEP/MEP were taken prior to placing the patient into neck extension. Post positioning baselines were unchanged. Bony prominences and cubital tunnels were padded bilaterally. Sequential compression devices were applied to bilateral LE. Patient was prepped and draped sterilely in usual fashion. Time-out was performed and confirmed, and antibiotics were administered within 1 hour prior to skin incision. Exposure A transverse incision was made centered on the C6-7 disk space, and was taken down to the platysma.The platysma was freed from the overlying tissue, and then divided and undermined proximally and distally. The strap muscles, esophagus and trachea were then retracted medially. Confirmation of the carotid sheath laterally was performed by manual palpation, and this interval was bluntly dissected down to the level of the longus coli and prevertebral fascia, which was bluntly divided to expose thespinal column. A non-penetrating clamp was then placed at the C6-7 interval, and lateral radiographconfirmed the appropriate level. At this point, longus coli musculature was then raised from medialto lateral to expose the disc and adjacent vertebral bodies, with care not to violate the cephalad and caudad disc spaces. Self-retaining retractors were then placed, and the ET cuff was deflated anne-inflated with diminished pressure. Anterior cervical diskectomy, arthrodesis: A 15 blade was used to perform an anterior annulotomy. Currette and pituitary rongeur was then usedto remove disk material and clear the superior and inferior endplates of the disc space at C6-7. The uncovertebral joints were identified and cleaned using a curette and kerasin rongeur. Posterior osteophytes were burred, allowing identification of the posterior longitudinal ligament which was divided and removed with a kerasin rogngeur allowing for central decompression bilateral foraminotomy marcelina performed to completely free the nerve roots at this level. Nerve hook confirmed compression free path lateral to the pedicles. There was no evidence of spinal fluid leak noted. The wound was thoroughly irrigated. Arthrodesis was then performed, using a rasp on both superior and inferior endplates as well as a currette to create a punctate areaof cortical perforation and bleeding to prepare the endplates for fusion. Sizing guides were then used to assess appropriate amount of tension, and a 7 mm lordotic tricortical allograft spacer was selected. It was tamped into the 6-7 interspace, just sub- flush with the anterior bodies. This completed the arthrodesis. Anterior instrumentation: An anterior cervical plate spanning the interspace was selected, with care not to encroach upon adjacent levels. Two screws were placed through the plate into each vertebralbody, and the mechanism to prevent screw backout was engaged. After confirmation that hemostasis had been achieved, the wound was thoroughly irrigated and closedin layers in a typical fashion. Final layer absorbable suture and steri-strips. A lateral radiograph confirmed appropriate positioning of the graft and instrumentation. A sterile dressing was appliedand soft cervical collar placed for comfort. The patient was extubated and taken to PACU in good condition. I was scrubbed for all ridley/critical portions of the procedure, and immediately available for the entirety of the procedure in compliance with [facility] regulations. Rodney Lai MD documented in this encounter ED Notes * Maty Sen, RN - 06/10/2023 0356 EST Pt PVR bladder scan <20. Pt states he does not have to urinate at the moment * Lizzie Ashton RN - 06/10/2023 0040 EST Placed pt in Brazos-J collar per NIA Lynn. NIA Lynn at bedside evaluating pt during c-collar application. * Cece Lynn PA-C - 06/10/2023 0026 EST Images from the original note were not included. [facility] Emergency Department Note Emergency Department Visit This documentation is recorded by Les Ken acting as Scribe under the direction and presence of Cece Lynn PA-C. Cece Lynn PA-C: I personally performed the services recorded by the scribe in my presence. Iconfirm the scribe's documentation has been reviewed by me to accurately and completely record my work, treatment, procedures, and medical decision making. Dr. Jordan was available for supervision. Medical Decision Making This is a 33 y.o. male with pmhx of no significant medical history presents to the emergency department with neck pain over the past 1 to 2 months, now acutely worsening x 1 day in the setting of a slip and fall on ice. Of note, patient did not arrive in c-collar, 1 was promptly placed upon patient's arrival to the ED. Vital signs here notable for hypertension 177/107, mildly tachycardic at 101 bpm. Physical examination as below noteable for slightly uncomfortable appearing male in no acute distress. He does have sensory changes in ulnar distribution of bilateral upper extremities. No other focal neurodeficits noted on examination. Differential diagnosis includes most likely cord compression in the setting of cervical MRI results showing such from outside hospital which are available to review in EMR, consider profound myelopathy related to stenosis, doubt cord compression at other level based on MRI results from outside hospital, no clinical concern for vertebral fracture based on priorrad results. We will plan for pain control as needed, will give maintenance fluids, will plan for or thospine evaluation. ED Course Relevant Data as of 06/10/23 0411 TueJun 10, 2023 0132 I spoke with orthopedics who is covering for spine service today, they will come evaluate patient. They have ordered x-rays of cervical spine as well as CT of cervical spine. I communicated thatpatient was placed in cervical collar out of abundance of caution. They will come assess patient. [HG] 0133 CT CERVICAL SPINE WO CONTRAST Impression: 1. No acute cervical spine fracture or traumatic malalignment. 2. Multifocal stenoses of the spinal canal better characterized on prior MRI. [HG] 0133 XR CERVICAL SPINE 2-3 VIEWS IMPRESSION FINDINGS / IMPRESSION: No acute fracture or traumatic malalignment. No evidence of significant listhesis on upright and swimmer's views. Overlapping soft tissues obscures the lower cervical and upper thoracic vertebral bodies on the lateral views. [HG] [address] Fahad Bedolla from orthopedics, plan will be for admission to the orthopedic surgery with planned surgical intervention this morning [HG] Relevant Data User Index [HG] Cece Lynn, HEIDI Medical Decision Making Problems Addressed: 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HCC-CMS): acute illness or injury Amount and/or Complexity of Data Reviewed External Data Reviewed: notes. Details: Reviewed notes from [facility] prior to arrival Labs: Decision-making details documented in ED Course. Radiology: Decision-making details documented in ED Course. Risk Decision regarding hospitalization. Consults Ortho spine Imaging CT CERVICAL SPINE WO CONTRAST Preliminary Result 1. No acute cervical spine fracture or traumatic malalignment. 2. Multifocal stenoses of the spinal canal better characterized on prior MRI. XR CERVICAL SPINE 2-3 VIEWS Preliminary Result FINDINGS / IMPRESSION: No acute fracture or traumatic malalignment. No evidence of significant listhesis on upright and swimmer's views. Overlapping soft tissues obscures the lower cervical and upper thoracic vertebral bodies on the lateral views. The following problems were addressed: Final diagnoses: 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HCC-CMS) Chief complaint: Chief Complaint Patient presents with Neck Pain Ambulatory to triage with family as transfer form [facility]. Fall 1 month ago and had intermittent bilateral arm numbness and saddle anesthesia. Had fall today after slipping on ice which increased pain and symptoms. Walked with steady gait. HPI: 33 y.o. male with pmhx of no significant medical history presents to the emergency department with neck pain over the past 1 to 2 months, now acutely worsening x 1 day in the setting of a slip and fall on ice. Patient reports he initially started having neck pain roughly a year ago after a fall. He was seen from outside hospital at that time had an x-ray and was given instructions for NSAIDs and dischargedhome. He reports that his symptoms overall improved at that time however then recurred and worsenedover the past 1 to 2 months in the setting of new fall. Patient notes that he had a slip and fall on ice yesterday, after which his pain worsened. Patient denies any head strike with this fall. Patient also reports having a fall about two months ago, as well as a previous fall about a year ago. Patient reports over the past 1-1/2 months he has been experiencing bilateral hand numbness and tingling specifically along the fourth, fifth digits and abdominal numbness from the umbilicus down through his lower extremities. He endorses change in bowel and bladder habits. He states that he normally has bowel movements every day, now and has been infrequent by days. He also reports at times it is difficult to start his stream of urine. He endorses difficulty ambulating, and general difficulty with coordination as well. Patient denies any lossof strength, but notes that he does have some reduced sensation. Patient also endorses waxing and waning inner thigh numbness, as well as leg weakness and leg swelling. Patient denies any numbness inhis groin. No fevers or chills, no IV drug use. History was provided by: Patient Patient's pertinent PMH, FH, SH were reviewed and edited as necessary. Nurse note reviewed and confirmed. Physical Exam Patient Vitals for the past 24 hrs: BP Temp Temp src Pulse Resp SpO2 Height Weight 06/10/23 0031 (!) 177/107 36.8 ??C (98.2 ??F) Oral 101 18 100 % 188 cm (74) (!) 109.3 kg (241 lb) A medical screening exam was performed. Physical Exam Gen: BP (!) 177/107 (BP Cuff Location: Left arm, BP Patient Position: Sitting) Pulse 101 Temp 36.8 ??C (98.2 ??F) (Oral) Resp 18 Ht 188 cm (74) Wt (!) 109.3 kg (241 lb) SpO2 100% BMI 30.94 kg/m?? . Slightly uncomfortable but overall well-appearing, no distress. Eyes: Anicteric. PERRL ENT: Atraumatic. Dry MM. Oropharynx no tonsillar erythema or exudates. Resp: Normal resp rate. Clear to auscultation bilaterally without rales, rhonchi or wheezing. CV: RRR. 2+ radial pulses GI: Nondistended. Nontender to palpation. MSK: c collar in place. No deformities, well perfused extremities Skin: Warm, dry. no rash, no bruising. Neuro: Normal speech. alert & oriented x 3, CNsII-XII intact. Gait normal. Motor function 5/5 bilaterally. Diminished sensation in bilateral 4th and 5th digits consistent with ulnar distributions. Intact strength in bilateral upper and lower extremities. No sensory deficit of the bilateral lower extremities. GCS 15 Psych: Normal affect. Disposition: Admit to orthospine for planned surgical decompression The patient agrees with this plan and disposition. This chart was generated using voice-recognition software. I have read the note but there are oftensubtle changes that are difficult to identify. Please contact me for clarification if necessary. Associated attestation - Kerry Jordan MD - 06/10/2023 0546 EST I, Kerry Jordan MD, reviewed this case with the Advanced Practice Provider (BETTY) and have reviewed the BETTY's note. I evaluated this patient [id number] and provided a substantive portion of the patient's care. My personal evaluation included a face to face history and physical exam, review of nursing notes, review of vital signs, review of relevant records, and review of diagnostic data. Based on these elements I formulated, and/or participated substantively in the medical decision making, including assessing the level of risk of the patient's complaints and condition, establishing a diagnosis and/or selecting management options. Briefly, 33M PMH for neck pain and paresthesia for past few months now worsened after a couple falls, transferred from [facility] due to C spine compression w/ myelopathy. Seen by ortho. Admitted for spine surgery Final diagnoses: 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[facility]) Kerry Jordan MD Emergency Medicine Attending Physician documented in this encounter Miscellaneous Notes * Plan of Care - Kieran Bender RN - 06/11/2023 1607 EST Nursing Discharge Note D: Patient noted with discharge orders to: home. A: Prescriptions faxed to pharmacy. Reviewed discharge instructions and prescriptions with Patient and Family IV d/c'd. Belongings collected and sent home with patient. R: Patient and Family verbalized understanding of discharge instructions and denied further questions. Kieran Bender RN 06/11/2023 16:07 * Plan of Care - Narayan Bryant MD - 06/11/2023 0958 EST Brief Orthopedic Plan of Care: Obtained uprights of the cervical spine s/p C6-C7 ACDF w/ Dr. Lai on 06/10/2023 to assess hardware position and overall alignment. AP and lateral uprights of the cervical spine demonstrate a previously implanted C6-C7 ACDF withoutany evidence of positional change since operative imaging. The patient cervical alignment appears without any gross listhesis or malalignment. Small amount of gas within the anterior soft tissues consistent with prior procedure. No concerning findings on upright radiographs s/p above procedure, patient okay to discharge today if otherwise able. narayan bryant md orthopaedic surgery [email or web address] secure messenger preferred, or pager: [phone] 06/11/23 10:07 * Plan of Care - Lyly Qureshi RN - 06/11/2023 0024 EST Problem: Daily Care Plan Goals Goal: Care Plan Documentation Outcome: Ongoing Flowsheets (Taken 06/10/20231999) Area of Focus: Communication Goal This Shift: Readmit to chetan Cordero following surgery Data: POD#1 for C6-7 ACDF. A+Ox4, VSS on RA, ambulates independently in room. Voiding and passing gas. Rating pain 3-4/10 during this shift. Dressing to anterior neck C/D/I. Continues with hemovac intact and to suction. Pt reports tingling and weakness has improved. Action: Scheduled and PRN meds given as ordered. Assisted patient OOB to bathroom. Therapeutic communication provided. Hourly rounding completed by RN. Clustered care to promote rest. Response: Patient resting comfortably in bed at this time, RR WNL. Call walker in reach and able to make needs known. LYLY QURESHI RN 06/11/2023 0:24 * Plan of Care - Yumiko De La Fuente RN - 06/10/2023 1850 EST Problem: Daily Care Plan Goals Goal: Care Plan Documentation Flowsheets (Taken 06/10/2023 4638) Area of Focus: Pain/ Comfort Goal This Shift: pain will be well controlled while waiting for OR Note: Data: HD #1 admitted for cord compression post fall. A&Ox3. Pt endorsing numbness and tingling in bilateral fingers (2nd and 5th digits) and bilateral LE's. Up ad ismael to bathroom w/ cervical collar on for comfort. Denies major discomforts/pain. NPO for OR today. Action: Medicated per aug. Educated about plan of care. Pre op checklist completed- transported to pre op around 1430. Response: Pt arrived back on MR6 at 1855 . Now s/p C6-7 ACDF. Drain to suction. Dressing c/d/I. Denies current pain. Call light within reach, w/ SO at the bedside. YUMIKO DE LA FUENTE RN 06/10/2023 19:45 * Brief Op Note - Brett Acosta MD - 06/10/2023 1745 EST Date: 06/10/2023 Location: [facility] OR Name: Maria L Daisha Douglas, : 1990, Diagnosis Pre-Op Diagnosis Codes: * Cervical spinal cord compression (HCC-CMS) [G95.20] Post-op Diagnosis * Cervical spinal cord compression (HCC-CMS) [G95.20] Procedures * C6/7 Anterior cervical discetomy and fusion Surgeons * Rodney Lai MD - Primary * Brett Acosta MD - Resident - Assisting Procedure Summary Anesthesia: General ASA: ASA status not filed in the log. Estimated Blood Loss: No Blood Loss Documented Total IV Fluids: 600 mL LDAs: Peripheral IV 06/10/23 0245 Right Antecubital (Active) Peripheral IV 06/10/23 1535 Left Hand (Active) Wound 06/10/23 Incision Anterior Neck (Active) [REMOVED] Non-Surgical Airway (Removed) Implants Type Name Action Serial No. Plate Implant PLATE ACP 1.9H 24MM 1 LEVEL - [id number] Implanted [employer] Implanted [id number] Screw Implant SCREW ACP 3.5 X 17MM SELF-DRILL FIXED - [id number] Implanted Screw Implant SCREW ACP 4.0 X 17MM SELF TAP FIXED - [id number] Implanted Staff: Bowling Ball Finisher: Otilia Mcbride, RN Registered Nurse Shellfish Harvester: Shelly Moreno RN Relief Bowling Ball Finisher: Junito Love RN Relief Scrub: Addi Scherer Scrub Person: Yoel Blackburn Patient Support Teacher: Shyla Gonzalez Indications: Maria L Douglas is an 33 y.o. male who is having surgery for * No pre-op diagnosis entered * Findings: see full dictation Complications: None; patient tolerated the procedure well. Disposition: PACU - hemodynamically stable. Condition: stable Specimens Collected: No specimens collected during this procedure. Plan: Multimodal pain control remove drain when output <30cc/shift Ancef 2g q8h x24 hrs No activity restrictions, soft collar for comfort SCDs, ambulation Home likely POD1 * Plan of Care - Vicky Ca - 06/10/2023 1502 EST Initial Case Management/Social Work Assessment and Discharge Plan/Readmission Risk Assessment REASON FOR ADMISSION: 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HCC-CMS) Patient understands reason for admission: (P) Yes PATIENT INFO VERIFIED: (P) PCP not verified Type of housing (single family, condo, apartment, mcc, single room occupancy, ESD funded hotel room, group jail) - [facility] Who does the patient live with? alone Does the patient have access to their own bedroom/bathroom/kitchen - or is it shared with others? own Name of housing complex (ex [facility], [facility], etc)- n/a Housing Authority/Managing Organization - n/a Community Care Providers (counseling case manager, [facility] nurse, etc) name and contact information- n/a No DC barriers identified nor need for escalation LIVING ARRANGEMENTS AND ACCESSIBILITY ISSUES: TBD when Pt is out of surgery; CM to follow-up What in home social supports are available to the patient? Is 17/01 care available? (P) No ADVANCED DIRECTIVES, POA &/or COLST IN PLACE: Healthcare Directive: No, patient does not have advance directive for healthcare treatment Information Provided on Healthcare Directives: No Information on Healthcare Directives Requested: No DIRECTIVES FOR FINANCES: Unknown TRANSPORTATION: Transportation: (P) Self, Taxi Does the patient need discharge transport arranged?: (P) No Transportation Additional Details: (P) self or taxi Final Discharge Destination: (P) home Patient expects to be discharged to: (P) home CULTURAL, YAZIDI and/or LANGUAGE factors affecting health care/discharge planning: Spiritual/Cultural Requests: None Insurance Information: Workers Comp Nutrition: Not assessed by this CM DISCHARGE RISK ASSESSMENT: (P) Requires assistance with ADLs/IADLs Total # selected above: (P) Score of 1 - 2: This patient is at LOW RISK for re-hospitalization Tentative plan to address the risk of re-hospitalization for those at HIGH MODERATE RISK: (P) Bringrisk factors to attention of team to be addressed RAPT TOOL: Patient expects to be discharged to: (P) home SBIRT: SASQ (Single Alcohol Screening Question) How many times in the past year have you had 5 or more drinks in a single day?: (P) Never How many times in the past year have you used an illegal drug or used a prescription medication fornon-medical reasons?: (P) Never Per chart, Pt vapes daily, has 1 alcoholic drink/3 months, no drug use Intervention in place/initiated?: (P) No, not indicated FUNCTIONAL STATUS: Activities patient requires assistance: (P) None Assistive Devices: (P) None COMMUNITY RESOURCES/SUPPORTS: Primary Care Provider: Provider None PCP Verified: TBD when Pt is out of surgery; CM to follow-up Specialists: (P) None Type of Home Health Services: (P) None DME Provider: (P) None Pharmacy: No Pharmacies Listed Home Health: None Other: None POST HOSPITAL TRANSITION PLAN: home Per chart review, Pt lives in [place], [place]. His daughter and spouse live in [place]. Since fall 1 1/2 yrs ago he has experienced various paretheses (hands, LEs). Was transferred to [facility] from [facility]. Insurance listed as Workers Comp. CM to meet Pt post-op for DC planning pending clinical course and team recommendations. VICKY CA [facility] [facility] [id number] [id number] 06/10/2023 15:02 documented in this encounter Plan of Treatment Upcoming Encounters Date Type Department Care Team (Late st Contact Info) Description 06/04/2024 12:00 EST Office Visit [facility] Spine Program - [address] [phone] Rodney Lai MD [address] [place] [phone] Scheduled Referrals Name Type Priority Associated Diagnoses Order Schedule AMB CONS/FOLLOW UP ORTHOPEDICS - [facility] Outpatient Referral Routine/Next Available 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[facility]) Expected: 07/25/2023 (Approximate), Expires: 06/10/2024 PROVIDER FOLLOW-UP INSTRUCTIONS Outpatient Referral Routine Ordered: 06/11/2023 PROVIDER FOLLOW-UP INSTRUCTIONS Outpatient Referral Routine Ordered: 06/11/2023 documented as of this encounter Procedures Procedure Name Priority Date/Time Associated Diagnosis Comments XR CERVICAL SPINE 2-3 VIEWS STAT 06/11/2023 9:34 EST COMPLETE BLOOD COUNT AND DIFFERENTIAL Routine 06/11/2023 8:56 EST BUN Routine 06/11/2023 8:56 EST CREATININE Routine 06/11/2023 8:56 EST ELECTROLYTES Routine 06/11/2023 8:56 EST XR CERVICAL SPINE 2-3 VIEWS Routine 06/10/2023 19:20 EST Cervical myelopathy (HCC-CMS) FL C-ARM 0-1 HOUR Routine 06/10/2023 18:04 EST Cervical myelopathy (HCC-CMS) DISCECTOMY, SPINE, CERVICAL, ANTERIOR APPROACH, WITH CERVICAL FUSION BELOW C2, FOR DECOMPRESSION, ADDITIONAL LEVEL AFTER INITIAL DISCECTOMY 06/10/2023 15:05 EST Cervical spinal cord compression (HCC-CMS) Special Needs Nuvasive neruomonitoring PTT Routine 06/10/2023 6:27 EST PROTIME Routine 06/10/2023 6:27 EST COMPLETE BLOOD COUNT AND DIFFERENTIAL Routine 06/10/2023 6:27 EST BUN Routine 06/10/2023 6:27 EST CREATININE Routine 06/10/2023 6:27 EST ELECTROLYTES Routine 06/10/2023 6:27 EST PROTIME STAT 06/10/2023 4:24 EST COMPLETE BLOOD COUNT AND DIFFERENTIAL STAT 06/10/2023 4:24 EST TYPE AND SCREEN STAT 06/10/2023 4:24 EST BASIC METABOLIC PANEL (BMP) STAT 06/10/2023 4:[address] CERVICAL SPINE WO CONTRAST STAT 06/10/2023 1:30 EST XR CERVICAL SPINE 2-3 VIEWS STAT 06/10/2023 1:13 EST documented in this encounter Results * XR CERVICAL SPINE 2-3 VIEWS (06/11/2023 9:34 EST) Anatomical Region Laterality Modality Computed Radiogr aphy 06/11/2023 9:38 EST Impressions 06/11/2023 9:38 EST FINDINGS / IMPRESSION: * ??2 views of the cervical spine were obtained postoperatively. There has been anterior cervical discectomy and fusion involving the C6-C7 levels. There is some gas within the soft tissues of the right neck postoperatively. [id number] Narrative 06/11/2023 9:38 EST EXAM/TECHNIQUE: 06/11/2023 7:55 AM ??XR CERVICAL SPINE 2-3 VIEWS 2 views ?? HISTORY: ??uprights post op; Procedure Note Claude Camacho MD - 06/11/2023 EXAM/TECHNIQUE: 06/11/2023 7:55 AM XR CERVICAL SPINE 2-3 VIEWS 2 views HISTORY: uprights post op; IMPRESSION FINDINGS / IMPRESSION: * 2 views of the cervical spine were obtained postoperatively. There hasbeen anterior cervical discectomy and fusion involving the C6-C7 levels.There is some gas within the soft tissues of the right neckpostoperatively. [id number] Yoel Valerio MD IMG DIAGNOSTIC IMAGI NG ORDERABLES * (ABNORMAL) COMPLETE BLOOD COUNT AND DIFFERENTIAL (06/11/2023 8:56 EST) WBC 10.04 4.00 - 10.40 K/cmm 06/11/2023 9:18 [facility] RBC 4.90 4.36 - 5.78 M/cmm 06/11/2023 9:18 [facility] Hemoglobin 14.2 13.8 - 17.3 g/dL 06/11/2023 9:18 [facility] HCT 41.8 39.5 - 50.2 % 06/11/2023 9:18 [facility] MCV 85 81 - 95 fL 06/11/2023 9:18 [facility] MCH 29.0 27.6 - 33.0 pg 06/11/2023 9:18 [facility] MCHC 34.0 32.8 - 36.4 g/dL 06/11/2023 9:18 [facility] RDW-CV 12.6 <14.2 % 06/11/2023 9:18 [facility] RDW-SD 39.1 <46.0 fl 06/11/2023 9:18 [facility] PLT 254 141 - 377 K/cmm 06/11/2023 9:18 [facility] MPV 10.1 9.5 - 12.7 fL 06/11/2023 9:18 [facility] % Neutrophils 61.9 % 06/11/2023 9:18 [facility] % Lymphocytes 20.9 % 06/11/2023 9:18 [facility] % Monocytes 11.0 % 06/11/2023 9:18 [facility] % Eosinophils 4.3 % 06/11/2023 9:18 [facility] % Basophils 1.0 % 06/11/2023 9:18 [facility] % Immature Grans 0.9 % 06/11/20 9:18 [facility] Absolute Neutrophils 6.22 2.20 - 8.85 K/cmm 06/11/2023 9:18 [facility] Absolute Lymphocytes 2.10 1.09 - 3.30 K/cmm 06/11/2023 9:18 [facility] Absolute Monocytes 1.10(H) 0.10 - 0.80 K/cmm 06/11/2023 9:18 [facility] Absolute Eosinophils 0.43 0.03 - 0.61 K/cmm 06/11/2023 9:18 [facility] ABS Basophils 0.10 0.01 - 0.11 K/cmm 06/11/2023 9:18 [facility] Absolute Immature Grans 0.09(H) 0.00 - 0.06 K/cmm 06/11/2023 9:18 [facility] Type of Differential: Auto 06/11/2023 9:18 [facility] Blood VENOUS BLOOD / Unknown Venipuncture / Unknown 06/11/2023 8:56 EST 06/11/2023 9:08 EST Fahad Bedolla MD PACKAGES & DNA PROBE ORDERABLES Performing Organization Address City/[facility]/ZIP Co de Phone Number [facility] [address] [place] [address] * ELECTROLYTES (06/11/2023 8:56 EST) Sodium 138 136 - 145 mmol/L 06/11/2023 9:18 EST [facility] Potassium 4.6 3.5 - 5.0 mmol/L 06/11/2023 9:18 EST [facility] Chloride 104 96 - 110 mmol/L 06/11/2023 9:18 EST [facility] CO2 Total 25 22 - 32 mmol/L 06/11/2023 9:18 EST [facility] Anion Gap 9 5 - 14 mmol/L 06/11/2023 9:18 EST [facility] Blood VENOUS BLOOD / Unknown Venipuncture / Unknown 06/11/2023 8:56 EST 06/11/2023 9:07 EST Fahad Bedolla MD CHEMISTRY & BLOOD GA S ORDERABLES Performing Organization Address [facility] Co de Phone Number [facility] [address] [place] [address] * CREATININE (06/11/2023 8:56 EST) Creatinine 1.20 0.66 - 1.25 mg/dL 06/11/2023 9:18 EST [facility] eGFR 83 >60 mL/min/1.73 m2 06/11/2023 9:18 EST [facility] Blood VENOUS BLOOD / Unknown Venipuncture / Unknown 06/11/2023 8:56 EST 06/11/2023 9:07 EST Fahad Bedolla MD CHEMISTRY & BLOOD GA S ORDERABLES Performing Organization Address City/[facility]/ZIP Co de Phone Number [facility] [address] [place] [address] * BUN (06/11/2023 8:56 EST) BUN 12 10 - 26 mg/dL 06/11/2023 9:18 EST [facility] Blood VENOUS BLOOD / Unknown Venipuncture / Unknown 06/11/2023 8:56 EST 06/11/2023 9:07 EST Fahad Bedolla MD CHEMISTRY & BLOOD GA S ORDERABLES Performing Organization Address City/State/[facility] Co de Phone Number [facility] [address] [place] [address] * XR CERVICAL SPINE 2-3 VIEWS (06/10/2023 19:20 EST) Anatomical Region Laterality Modality Radio Fluoroscop y 06/10/2023 19:4 6 EST Impressions 06/10/2023 19:46 EST Findings/ Impression: Intraoperative radiographs show anterior discectomy and fusion at C6-7 level. [id number] Narrative 06/10/2023 19:46 EST XR CERVICAL SPINE 2-3 VIEWS ??06/10/2023 2:15 PM Clinical History/Comments: Cervical myelopathy (HCC-CMS) C6-7 ??ACDF. Check level. Please call [phone]. *done in [place]*;G95.9:Cervical myelopathy (HCC-CMS) Comparison: CT cervical spine 06/10/2023 Technique: Intraoperative AP and lateral radiographs of the lower cervical spine. Procedure Note Brett Tineo MD - 06/10/2023 XR CERVICAL SPINE 2-3 VIEWS 06/10/2023 2:15 PM Clinical History/Comments: Cervical myelopathy (HCC-CMS) C6-7 ACDF. Check level. Please call [phone].*done in [place]*;G95.9:Cervical myelopathy (HCC-CMS) Comparison: CT cervical spine 06/10/2023 Technique: Intraoperative AP and lateral radiographs of the lower cervicalspine. IMPRESSION Findings/ Impression: Intraoperative radiographs show anterior discectomy and fusion at C6-7level. [id number] Rodney Lai MD IMG DIAGNOSTIC IMAG ING ORDERABLES * FL C-ARM 0-1 HOUR (06/10/2023 18:04 EST) Narrative 06/10/2023 18:06 EST This is a non-reportable exam. Rodney Lai MD IMG OTHER IMAGING O RDERABLES * (ABNORMAL) COMPLETE BLOOD COUNT AND DIFFERENTIAL (06/10/2023 6:27 EST) WBC 8.71 4.00 - 10.40 K/cmm 06/10/2023 7:18 [facility] RBC 4.81 4.36 - 5.78 M/cmm 06/10/2023 7:18 [facility] Hemoglobin 14.0 13.8 - 17.3 g/dL 06/10/2023 7:18 [facility] HCT 41.6 39.5 - 50.2 % 06/10/2023 7:18 [facility] MCV 87 81 - 95 fL 06/10/2023 7:18 [facility] MCH 29.1 27.6 - 33.0 pg 06/10/2023 7:18 [facility] MCHC 33.7 32.8 - 36.4 g/dL 06/10/2023 7:18 [facility] RDW-CV 12.5 <14.2 % 06/10/2023 7:18 [facility] RDW-SD 39.4 <46.0 fl 06/10/2023 7:18 [facility] PLT 253 141 - 377 K/cmm 06/10/2023 7:18 [facility] MPV 10.3 9.5 - 12.7 fL 06/10/2023 7:18 [facility] % Neutrophils 59.7 % 06/10/2023 7:18 [facility] % Lymphocytes 23.1 % 06/10/2023 7:18 [facility] % Monocytes 8.8 % 06/10/2023 7:18 [facility] % Eosinophils 5.6 % 06/10/2023 7:18 [facility] % Basophils 1.4 % 06/10/2023 7:18 [facility] % Immature Grans 1.4 % 06/10/20 7:18 [facility] Absolute Neutrophils 5.20 2.20 - 8.85 K/cmm 06/10/2023 7:18 [facility] Absolute Lymphocytes 2.01 1.09 - 3.30 K/cmm 06/10/2023 7:18 [facility] Absolute Monocytes 0.77 0.10 - 0.80 K/cmm 06/10/2023 7:18 [facility] Absolute Eosinophils 0.49 0.03 - 0.61 K/cmm 06/10/2023 7:18 [facility] ABS Basophils 0.12(H) 0.01 - 0.11 K/cmm 06/10/2023 7:18 [facility] Absolute Immature Grans 0.12(H) 0.00 - 0.06 K/cmm 06/10/2023 7:18 [facility] Type of Differential: Auto 06/10/2023 7:18 [facility] Blood VENOUS BLOOD / Unknown Venipuncture / Unknown 06/10/2023 6:27 EST 06/10/2023 7:06 EST Fahad Bedolla MD PACKAGES & DNA PROBE ORDERABLES Performing Organization Address City/State/[facility] Co de Phone Number [facility] [address] [place] [address] * ELECTROLYTES (06/10/2023 6:27 EST) Sodium 139 136 - 145 mmol/L 06/10/2023 7:35 [facility] Potassium 4.4 3.5 - 5.0 mmol/L 06/10/2023 7:35 [facility] Chloride 104 96 - 110 mmol/L 06/10/2023 7:35 [facility] CO2 Total 25 22 - 32 mmol/L 06/10/2023 7:35 [facility] Anion Gap 10 5 - 14 mmol/L 06/10/2023 7:35 EST [facility] Blood VENOUS BLOOD / Unknown Venipuncture / Unknown 06/10/2023 6:27 EST 06/10/2023 7:06 EST Fahad Bedolla MD CHEMISTRY & BLOOD GA S ORDERABLES Performing Organization Address City/[facility] Co de Phone Number [facility] [address] [place] [address] * CREATININE (06/10/2023 6:27 EST) Creatinine 1.19 0.66 - 1.25 mg/dL 06/10/2023 7:35 EST [facility] eGFR 84 >60 mL/min/1.73 m2 06/10/2023 7:35 EST [facility] Blood VENOUS BLOOD / Unknown Venipuncture / Unknown 06/10/2023 6:27 EST 06/10/2023 7:06 EST Fahad Bedolla MD CHEMISTRY & BLOOD GA S ORDERABLES Performing Organization Address [facility] Co de Phone Number [facility] [address] [place] [address] * (ABNORMAL) BUN (06/10/2023 6:27 EST) BUN 9(L) 10 - 26 mg/dL 06/10/2023 7:35 EST [facility] Blood VENOUS BLOOD / Unknown Venipuncture / Unknown 06/10/2023 6:27 EST 06/10/2023 7:06 EST Fahad Bedolla MD CHEMISTRY & BLOOD GA S ORDERABLES Performing Organization Address [facility] Co de Phone Number [facility] [address] [place] [address] * PTT (06/10/2023 6:27 EST) PTT 29 26 - 37 secs 06/10/2023 7:39 EST [facility] Blood VENOUS BLOOD / Unknown Venipuncture / Unknown 06/10/2023 6:27 EST 06/10/2023 7:00 EST Fahad Bedolla MD HEMATOLOGY & PF4 ORD ERABLES Performing Organization Address City/[facility]/ZIP Co de Phone Number [facility] [address] [place] [address] * PROTIME (06/10/2023 6:27 EST) I.N.R. 1.1 0.9 - 1.1 Ratio 06/10/2023 7:39 EST [facility] Pro Time 12.3 9.7 - 12.8 secs 06/10/2023 7:39 EST [facility] Blood VENOUS BLOOD / Unknown Venipuncture / Unknown 06/10/2023 6:27 EST 06/10/2023 7:00 EST Narrative [facility] - 06/10/2023 7:39 EST Moderate Intensity Coumadin INR = 2.0-3.0 Adjustments in anticoagulant therapy dose should be based on the INR and NOT on the Protime. Fahad Bedolla MD HEMATOLOGY & PF4 ORD ERABLES Performing Organization Address [facility] Co de Phone Number [facility] [address] [place] [address] * TYPE AND SCREEN (06/10/2023 4:24 EST) ABO A 06/10/2023 5:10 EST [facility] Rh Factor Positive 06/10/2023 5:10 EST [facility] Antibody Screen Negative 06/10/2023 5:10 EST [facility] Specimen Expires: 06/13/2023 @ 23:59 06/10/2023 5:10 EST [facility] Blood VENOUS BLOOD / Unknown Venipuncture / Unknown 06/10/2023 4:24 EST 06/10/2023 4:30 EST Cece Lynn PA-C BLOOD BANK TESTS Performing Organization Address City/[facility]/ZIP Co de Phone Number [facility] [address] [place] [address] * BASIC METABOLIC PANEL (BMP) (06/10/2023 4:24 EST) Sodium 139 136 - 145 mmol/L 06/10/2023 4:45 [facility] Potassium 4.2 3.5 - 5.0 mmol/L 06/10/2023 4:45 [facility] Chloride 106 96 - 110 mmol/L 06/10/2023 4:45 [facility] CO2 Total 24 22 - 32 mmol/L 06/10/2023 4:45 [facility] Anion Gap 9 5 - 14 mmol/L 06/10/2023 4:45 [facility] Glucose 96 70 - 99 mg/dl 06/10/2023 4:45 [facility] Calcium 9.2 8.5 - 10.5 mg/dL 06/10/2023 4:45 [facility] BUN 10 10 - 26 mg/dL 06/10/2023 4:45 [facility] Creatinine 1.20 0.66 - 1.25 mg/dL 06/10/2023 4:45 [facility] eGFR 83 >60 mL/min/1.73 m2 06/10/2023 4:45 [facility] Blood VENOUS BLOOD / Unknown Venipuncture / Unknown 06/10/2023 4:24 EST 06/10/2023 4:25 EST Cece Lynn PA-C CHEMISTRY & BLOOD GA S ORDERABLES [facility] [address] [place] [address] * (ABNORMAL) COMPLETE BLOOD COUNT AND DIFFERENTIAL (06/10/2023 4:24 EST) WBC 8.71 4.00 - 10.40 K/cmm 06/10/2023 4:38 [facility] RBC 4.78 4.36 - 5.78 M/cmm 06/10/2023 4:38 [facility] Hemoglobin 13.8 13.8 - 17.3 g/dL 06/10/2023 4:38 [facility] HCT 40.5 39.5 - 50.2 % 06/10/2023 4:38 [facility] MCV 85 81 - 95 fL 06/10/2023 4:38 [facility] MCH 28.9 27.6 - 33.0 pg 06/10/2023 4:38 [facility] MCHC 34.1 32.8 - 36.4 g/dL 06/10/2023 4:38 [facility] RDW-CV 12.5 <14.2 % 06/10/2023 4:38 [facility] RDW-SD 38.0 <46.0 fl 06/10/2023 4:38 [facility] PLT 255 141 - 377 K/cmm 06/10/2023 4:38 [facility] MPV 10.2 9.5 - 12.7 fL 06/10/2023 4:38 [facility] % Neutrophils 60.6 % 06/10/2023 4:38 [facility] % Lymphocytes 22.6 % 06/10/2023 4:38 [facility] % Monocytes 8.0 % 06/10/2023 4:38 [facility] % Eosinophils 5.9 % 06/10/2023 4:38 [facility] % Basophils 1.4 % 06/10/2023 4:38 [facility] % Immature Grans 1.5 % 06/10/20 23 4:38 [facility] Absolute Neutrophils 5.28 2.20 - 8.85 K/cmm 06/10/2023 4:38 [facility] Absolute Lymphocytes 1.97 1.09 - 3.30 K/cmm 06/10/2023 4:38 [facility] Absolute Monocytes 0.70 0.10 - 0.80 K/cmm 06/10/2023 4:38 [facility] Absolute Eosinophils 0.51 0.03 - 0.61 K/cmm 06/10/2023 4:38 [facility] ABS Basophils 0.12(H) 0.01 - 0.11 K/cmm 06/10/2023 4:38 EST [facility] Absolute Immature Grans 0.13(H) 0.00 - 0.06 K/cmm 06/10/2023 4:38 EST [facility] Type of Differential: Auto 06/10/2023 4:38 EST [facility] Blood VENOUS BLOOD / Unknown Venipuncture / Unknown 06/10/2023 4:24 EST 06/10/2023 4:25 EST Cece Lynn PA-C PACKAGES & DNA PROBE ORDERABLES Performing Organization Address [facility] de Phone Number [facility] [address] [place] [address] * PROTIME (06/10/2023 4:24 EST) I.N.R. 1.1 0.9 - 1.1 Ratio 06/10/2023 4:55 EST [facility] Pro Time 12.5 9.7 - 12.8 secs 06/10/2023 4:55 EST [facility] Blood VENOUS BLOOD / Unknown Venipuncture / Unknown 06/10/2023 4:24 EST 06/10/2023 4:30 EST Narrative [facility] - 06/10/2023 4:55 EST Moderate Intensity Coumadin INR = 2.0-3.0 Adjustments in anticoagulant therapy dose should be based on the INR and NOT on the Protime. Cece Lynn PA-C HEMATOLOGY & PF4 ORD ERABLES Performing Organization Address City/[facility] Co de Phone Number [facility] [address] [place] [address] * CT CERVICAL SPINE WO CONTRAST (06/10/2023 1:30 EST) Anatomical Region Laterality Modality Computed Tomogra phy 06/10/2023 9:09 EST Impressions 06/10/2023 9:09 EST No acute cervical spine fracture. Redemonstrated multilevel degenerative changes, causing severe spinal canal stenosis at C6-C7. I have personally reviewed the images and the above interpretation and agree with the findings. [id number] Narrative 06/10/2023 9:09 EST EXAM: CT CERVICAL SPINE WO CONTRAST HISTORY: C-spine pain and fall. TECHNIQUE: CT cervical spine without contrast. Structured report code: [id number] COMPARISON: Cervical spine MRI 06/09/2023. FINDINGS: SURGICAL CHANGES: None. FRACTURES: None. ALIGNMENT: Straightening of lordosis. No significant spondylolisthesis. BONES: No significant vertebral body height loss. No concerning lesions. INTERVERTEBRAL DISCS: Redemonstrated multilevel disc degeneration with height loss and bony proliferative changes. JOINTS: No significant facet arthropathy. Mild multilevel uncovertebral hypertrophy, most pronounced on the left at C3-C4. Anterior atlanto-axial, lateral atlanto-axial, and atlanto-occipital joints are unremarkable. No concerning joint space widening. SPINAL CANAL: Redemonstrated severe stenosis at C6-C7, seen to greater advantage on the prior MRI. NEURAL FORAMINA: No high-grade stenosis. LUNG APICES: Clear. EXTRASPINAL SOFT TISSUES: No concerning abnormality VISIBLE INTRACRANIAL CONTENTS: Unremarkable. Procedure Note Sanchez Dewitt MD - 06/10/2023 EXAM: CT CERVICAL SPINE WO CONTRAST HISTORY: C-spine pain and fall. TECHNIQUE: CT cervical spine without contrast. Structured report code:[id number] COMPARISON: Cervical spine MRI 06/09/2023. FINDINGS: SURGICAL CHANGES: None. FRACTURES: None. ALIGNMENT: Straightening of lordosis. No significant spondylolisthesis. BONES: No significant vertebral body height loss. No concerning lesions. INTERVERTEBRAL DISCS: Redemonstrated multilevel disc degeneration with height loss and bonyproliferative changes. JOINTS: No significant facet arthropathy. Mild multilevel uncovertebralhypertrophy, most pronounced on the left at C3-C4. Anterior atlanto-axial,lateral atlanto-axial, and atlanto-occipital joints are unremarkable. Noconcerning joint space widening. SPINAL CANAL: Redemonstrated severe stenosis at C6-C7, seen to greater advantage on theprior MRI. NEURAL FORAMINA: No high-grade stenosis. LUNG APICES: Clear. EXTRASPINAL SOFT TISSUES: No concerning abnormality VISIBLE INTRACRANIAL CONTENTS: Unremarkable. IMPRESSION No acute cervical spine fracture. Redemonstrated multilevel degenerative changes, causing severe spinalcanal stenosis at C6-C7. I have personally reviewed the images and the above interpretation andagree with the findings. [id number] Fahad WE[address] CT ORDERABLES * XR CERVICAL SPINE 2-3 VIEWS (06/10/2023 1:13 EST) Anatomical Region Laterality Modality Computed Radiogr aphy 06/10/2023 9:02 EST Impressions 06/10/2023 9:02 EST FINDINGS/IMPRESSION: No acute fracture or concerning osseous lesion. Slight leftward curvature. Straightening and slight reversal of lordosis. No significant spondylolisthesis. No significant vertebral body height loss. Redemonstrated discogenic degenerative changes. Unremarkable extraspinal soft tissues. I have personally reviewed the images and the above interpretation and agree with the findings. [id number] Narrative 06/10/2023 9:02 EST CERVICAL SPINE, 3 VIEWS HISTORY: Neck pain. TECHNIQUE: AP, lateral, swimmer's views of the cervical spine. COMPARISON: Cervical spine MRI 06/09/2023. Procedure Note Sanchez Dewitt MD - 06/10/2023 CERVICAL SPINE, 3 VIEWS HISTORY: Neck pain. TECHNIQUE: AP, lateral, swimmer's views of the cervical spine. COMPARISON: Cervical spine MRI 06/09/2023. IMPRESSION FINDINGS/IMPRESSION: No acute fracture or concerning osseous lesion. Slight leftward curvature.Straightening and slight reversal of lordosis. No significantspondylolisthesis. No significant vertebral body height loss.Redemonstrated discogenic degenerative changes. Unremarkable extraspinalsoft tissues. I have personally reviewed the images and the above interpretation andagree with the findings. [id number] [facility]ad [facility] NG ORDERABLES documented in this encounter Visit Diagnoses Diagnosis 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HCC-CMS)- Primary Unspecified disease of spinal cord 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HCC-CMS) Unspecified disease of spinal cord Cervical myelopathy (HCC-CMS) Cervical spondylosis with myelopathy Cervical spinal cord compression (HCC-CMS) Unspecified disease of spinal cord Cervical myelopathy (HCC-CMS) Cervical spondylosis with myelopathy documented in this encounter Admitting Diagnoses Diagnosis Cervical spinal cord compression (HCC-CMS) Unspecified disease of spinal cord Cervical myelopathy (HCC-CMS) Cervical spondylosis with myelopathy documented in this encounter Administered Medications Inactive Administered Medications - up to 3 most recent administrations Medication Order MAR Action Action Date Dose Rate Site acetaminophen (TYLENOL) suppository 975 mg 975 mg, rectal, EVERY 6 HOURS, First dose on Tue06/10/23 at 0600, Until Discontinued, Routine acetaminophen (TYLENOL) tablet 1,000 mg 1,000 mg, oral, EVERY 6 HOURS, First dose on Tue06/10/23 at 0600, Until Discontinued, Routine Given 06/11/2023 12:21 EST 1,000 mg Given 06/11/2023 5:50 EST 1,000 mg Given 06/11/2023 0:11 EST 1,000 mg ascorbic acid (vitamin C) (VITAMIN C) tablet 500 mg 500 mg, oral, DAILY, First dose on Tue06/10/23 at 0900, Until Discontinued, Routine Given 06/11/2023 9:06 EST 5 00 mg ceFAZolin in dextrose (iso-os) piggyback 2 g/100 mL 2,000 mg, intravenous, Administer over 30 Minutes, EVERY 8 HOURS, 3 doses, First dose on Tue06/10/23 at 1900, Last dose on Tue06/11/23 at 1100, Type of Therapy: Prophylaxis, Suspected Indication (Select all that apply): Surgical prophylaxis, Routine Given 06/11/2023 10:19 EST 2,0 00 mg Given 06/11/2023 3:33 EST 2,000 mg Given 06/10/2023 19:44 EST 2,000 mg cholecalciferol (Vitamin D3) tablet 2,000 Units 2,000 Units, oral, DAILY, First dose on Tue06/10/23 at 0900, Until Discontinued, Routine Given 06/11/2023 9:07 EST 2,000 Units electrolyte-A (PLASMALYTE-A) solution at 75 mL/hr, intravenous, CONTINUOUS, Starting on Tue06/10/23 at 0530, Until Tue06/10/23 at 1842, Routine Rate Documented 06/10/2023 7:14 EST 75 mL/hr New Bag 06/10/2023 5:25 EST 75 mL/hr influenza vaccine quad 2022- (PF) (6 mos+) IM injection-syringe 0.5 mL 0.5 mL, intramuscular, Once (Without Time Specified), 1 dose, Starting on Tue06/10/23 at 1103, Until 06/11/23 at 1835, Routine lactated ringers (LR) infusion at 25 mL/hr, intravenous, CONTINUOUS, Starting on Tue06/10/23 at 1530, Until 06/11/23 at 1835, Routine Continued by Anesthesia 06/10/2023 15:15 EST 25 mL/hr New Bag 06/10/2023 15:02 EST 25 mL/hr lactated ringers BOLUS 1,000 mL 1,000 mL, intravenous, NOW X1, 1 dose, On Tue06/10/23 at 0230, STAT New Bag 06/10/2023 2:50 EST 1,000 mL methocarbamoL (ROBAXIN) tablet 1,000 mg 1,000 mg, oral, EVERY 6 HOURS PRN, Starting on Tue06/10/23 at 0508, Until 06/11/23 at 1835, muscle spasms, Routine Given 06/11/2023 9:05 EST 1,000 mg Given 06/10/2023 20:54 EST 1,000 mg Multivitamins with Minerals tablet 1 Tablet 1 Tablet, oral, DAILY, First dose on Tue06/10/23 at 0900, Until Discontinued, Routine Given 06/11/2023 9:0 7 EST 1 Tablet ondansetron (PF) (ZOFRAN) injection 4 mg 4 mg, intravenous, EVERY 6 HOURS PRN, Starting on Tue06/10/23 at 0508, Until 06/11/23 at 1835, Nausea, Routine ondansetron (ZOFRAN-ODT) disintegrating tablet 4 mg 4 mg, oral, EVERY 6 HOURS PRN, Starting on Tue06/10/23 at 0508, Until 06/11/23 at 1835, Nausea, Routine oxyCODONE (ROXICODONE) immediate release tablet 5-15 mg 5-15 mg, oral, EVERY 3 HOURS PRN, Starting on Tue06/10/23 at 0508, Until 06/11/23 at 1835, Pain, Routine Given 06/11/2023 13:35 EST 5 mg Given 06/11/2023 5:50 EST 5 mg Given 06/11/2023 1:29 EST 5 mg zinc sulfate (ZINCATE) capsule 220 mg 220 mg, oral, DAILY, First dose on Tue06/10/23 at 0900, Until Discontinued, Routine Given 06/11/2023 9:07 EST 220 mg documented in this encounter Active and Recently Administered Medications Times are shown in EST. Scheduled Medication Order 06/09/2023 06/10/2023 06/11/2023 acetaminophen (TYLENOL) suppository 975 mg(Linked Group 1) 975 mg, rectal, EVERY 6 HOURS, First dose on Tue06/10/23 at 0600, Until Discontinued, Routine 0526 (See Alternative - Provider: Nikole Dupont RN)1231 (See Alternative - Provider: Yumiko De La Fuente RN)1447 (AUG Hold - Provider: Automatic Transfer Provider Hn - Reason: Patient off unit)1800 (See Alternative - Provider: Yumiko De La Fuente RN)1824 (See Alternative - Provider: Natalia Hunter RN)1904 (MAR Unhold - Provider: Automatic Transfer Provider Hn) 0011 (See Alternative - Provider: Lyly Qureshi RN)0550 (See Alternative - Provider: Lyly Qureshi RN)1221 (See Alternative - Provider: Kieran Bneder RN)1800 (Canceled Entry - Provider: Batch Job User Admin - Comment: Automatically canceled at discontinue of medication order) acetaminophen (TYLENOL) tablet 1,000 mg(Linked Group 1) 1,000 mg, oral, EVERY 6 HOURS, First dose on Tue06/10/23 at 0600, Until Discontinued, Routine 0526 (Given - Provider: Nikole Dupont RN)1231 (Not Given - Provider: Yumiko De La Fuente RN - Reason: Patient/family refused)1447 (AUG Hold - Provider: Automatic Transfer Provider Hn - Reason: Patient off unit)1800 (Completed - Provider: Yumiko De La Fuente RN)1824 (Given - Provider: Natalia Hunter RN)1904 (MAR Unhold - Provider: Automatic Transfer Provider Hn) 0011 (Given - Provider: Lyly Qureshi RN)0550 (Given - Provider: Lyly Qureshi RN)1221 (Given - Provider: Kieran Bender RN)1800 (Canceled Entry - Provider: Batch Job User Admin - Comment: Automatically canceled at discontinue of medication order) ascorbic acid (vitamin C) (VITAMIN C) tablet 500 mg 500 mg, oral, DAILY, First dose on Tue06/10/23 at 0900, Until Discontinued, Routine 0825 (Not Given - Provider: Yumiko De La Fuente RN - Reason: NPO)1447 (AUG Hold - Provider: Automatic Transfer Provider Hn - Reason: Patient off unit)1904 (AUG Unhold - Provider: Automatic Transfer Provider Hn) 0906 (Given - Provider: Kieran Bender RN) ceFAZolin (ANCEF) syringe 2 g (COMPLETED) 2 g, intravenous, Administer over 5 Minutes, PROFESSOR OF FLORICULTURE TO O.R., 1 dose, First dose on Tue06/10/23 at 0700, Routine 1447 (AUG Hold - Provider: Automatic Transfer Provider Hn - Reason: Patient off unit)1528 (Given - Provider: Cheri Bowden)1904 (AUG Unhold - Provider: Automatic Transfer Provider Hn) ceFAZolin in dextrose (iso-os) piggyback 2 g/100 mL (COMPLETED) 2,000 mg, intravenous, Administer over 30 Minutes, EVERY 8 HOURS, 3 doses, First dose on Tue06/10/23 at 1900, Last dose on Tue06/11/23 at 1100, Type of Therapy: Prophylaxis, Suspected Indication (Select all that apply): Surgical prophylaxis, Routine 194 (Given - Provider: Lyly Qureshi RN) 033 (Given - Provider: Lyly Qureshi RN)1019 (Given - Provider: Kieran Bender RN) cholecalciferol (Vitamin D3) tablet 2,000 Units 2,000 Units, oral, DAILY, First dose on Tue06/10/23 at 0900, Until Discontinued, Routine 0825 (Not Given - Provider: Yumiko De La Fuente RN - Reason: NPO)1447 (AUG Hold - Provider: Automatic Transfer Provider Hn - Reason: Patient off unit)1904 (AUG Unhold - Provider: Automatic Transfer Provider Hn) 0907 (Given - Provider: Kieran Bender RN) docusate sodium (COLACE) capsule 200 mg 200 mg, oral, 2 TIMES DAILY, First dose on Tue06/10/23 at 0900, Until Discontinued, Routine 0825 (Not Given - Provider: Yumiko De La Fuente RN - Reason: NPO)1447 (AUG Hold - Provider: Automatic Transfer Provider Hn - Reason: Patient off unit)190 (AUG Unhold - Provider: Automatic Transfer Provider Hn)2057 (Not Given - Provider: Lyly Qureshi RN - Reason: Patient/family refused) 0908 (Not Given - Provider: Kieran Bender RN - Reason: Patient/family refused) influenza vaccine quad (PF) (6 mos+) IM injection-syringe 0.5 mL 0.5 mL, intramuscular, Once (Without Time Specified), 1 dose, Starting on Tue06/10/23 at 1103, Until Tue06/11/23 at 1835, Routine 1447 (AUG Hold - Provider: Automatic Transfer Provider Hn - Reason: Patient off unit)1903 (AUG Unhold - Provider: Automatic Transfer Provider Hn) lactated ringers BOLUS 1,000 mL (COMPLETED) 1,000 mL, intravenous, NOW X1, 1 dose, On Tue06/10/23 at 0230, STAT 0250 (New Bag - Provider: Maty Sen, TEE) Multivitamins with Minerals tablet 1 Tablet 1 Tablet, oral, DAILY, First dose on Tue06/10/23 at 0900, Until Discontinued, Routine 0825 (Not Given - Provider: Yumiko De La Fuente RN - Reason: NPO)1447 (AUG Hold - Provider: Automatic Transfer Provider Hn - Reason: Patient off unit)1903 (AUG Unhold - Provider: Automatic Transfer Provider Panda) 0907 (Given - Provider: Kieran Bender RN) polyethylene glycol 3350 (MIRALAX) packet 17 g 17 g, oral, DAILY, First dose on Tue06/10/23 at 0900, Until Discontinued, Routine 0825 (Not Given - Provider: Yumiko De La Fuente RN - Reason: NPO)1447 (AUG Hold - Provider: Automatic Transfer Provider Hn - Reason: Patient off unit)1903 (AUG Unhold - Provider: Automatic Transfer Provider Hn) 0908 (Not Given - Provider: Kieran Bender RN - Reason: Patient/family refused) senna (SENOKOT) tablet 2 Tablet 2 Tablet, oral, 2 TIMES DAILY, First dose on Tue06/10/23 at 0900, Until Discontinued, Routine 0825 (Not Given - Provider: Yumiko De La Fuente RN - Reason: NPO)1447 (AUG Hold - Provider: Automatic Transfer Provider Hn - Reason: Patient off unit)190 (AUG Unhold - Provider: Automatic Transfer Provider Hn)2057 (Not Given - Provider: Lyly Qureshi RN - Reason: Patient/family refused) 0908 (Not Given - Provider: Kieran Bender RN - Reason: Patient/family refused) zinc sulfate (ZINCATE) capsule 220 mg 220 mg, oral, DAILY, First dose on Tue06/10/23 at 0900, Until Discontinued, Routine 0825 (Not Given - Provider: Yumiko De La Fuente RN - Reason: NPO)1447 (AUG Hold - Provider: Automatic Transfer Provider Hn - Reason: Patient off unit)190 (AUG Unhold - Provider: Automatic Transfer Provider Hn) 09 (Given - Provider: Kieran Bender RN) Continuous Medication Order 06/09/2023 06/10/2023 06/11/2023 electrolyte-A (PLASMALYTE-A) solution (CANCELED) at 75 mL/hr, intravenous, CONTINUOUS, Starting on Tue06/10/23 at 0530, Until Tue06/10/23 at 1842, Routine 0525 (New Bag - Provider: Devonte Dupont RN)0714 (Rate Documented - Provider: Yumiko De La Fuente, TEE)1428 (Completed - Provider: Yumiko De La Fuente RN) lactated ringers (LR) infusion at 25 mL/hr, intravenous, CONTINUOUS, Starting on Tue06/10/23 at 1530, Until 06/11/23 at 1835, Routine 1502 (New Bag - Provider: Earline Boo, RN)1515 (Continued by Anesthesia - Provider: Cheri Bowden)1805 (Completed - Provider: Baldemar De MD) PRN Medication Order 06/09/2023 06/10/2023 06/11/2023 bisacodyL (DULCOLAX) suppository 10 mg 10 mg, rectal, DAILY PRN, Starting on Tue06/10/23 at 0508, Until 06/11/23 at 1835, Constipation, Routine 1447 (AUG Hold - Provider: Automatic Transfer Provider Hn - Reason: Patient off unit)190 ([facility] Unhold - Provider: Automatic Transfer Provider Hn) calcium carbonate (TUMS) tablet 500 mg (200 mg elemental calcium) 2 Tablet 2 Tablet, oral, EVERY 2 HOURS PRN, Starting on Tue06/10/23 at 0508, Until 06/11/23 at 1835, epigastric stress, Routine 1447 ([facility] Hold - Provider: Automatic Transfer Provider Hn - Reason: Patient off unit)190 ([facility] Unhold - Provider: Automatic Transfer Provider Hn) gelatin absorbable powder (SURGIFOAM) (CANCELED) PRN, Starting on Tue06/10/23 at 1632, Until Tue06/10/23 at 1747, Intraprocedure 1632 (Given - Provider: Rodney Lai MD - Comment: COMBINED WITH SALINE AND THROMBIN, USED TOPICALLY) lidocaine (PF) 10 mg/mL (1 %) injection 2 mg 2 mg, intradermal, PRN, 4 doses, Starting on Tue06/10/23 at 0508, Until 06/11/23 at 1835, peripheral intravenous catheter placement, Routine 1447 ([facility] Hold - Provider: Automatic Transfer Provider Hn - Reason: Patient off unit)190 ([facility] Unhold - Provider: Automatic Transfer Provider Hn) methocarbamoL (ROBAXIN) tablet 1,000 mg 1,000 mg, oral, EVERY 6 HOURS PRN, Starting on Tue06/10/23 at 0508, Until 06/11/23 at 1835, muscle spasms, Routine 1447 ([facility] Hold - Provider: Automatic Transfer Provider Hn - Reason: Patient off unit)190 ([facility] Unhold - Provider: Automatic Transfer Provider Hn)2053 (Given - Provider: Lyly Qureshi RN) 09 (Given - Provider: Kieran Bender RN) ondansetron (PF) (ZOFRAN) injection 4 mg(Linked Group 2) 4 mg, intravenous, EVERY 6 HOURS PRN, Starting on Tue06/10/23 at 0508, Until 06/11/23 at 1835, Nausea, Routine 1447 ([facility] Hold - Provider: Automatic Transfer Provider Hn - Reason: Patient off unit)190 ([facility] Unhold - Provider: Automatic Transfer Provider Hn) ondansetron (ZOFRAN-ODT) disintegrating tablet 4 mg(Linked Group 2) 4 mg, oral, EVERY 6 HOURS PRN, Starting on Tue06/10/23 at 0508, Until 06/11/23 at 1835, Nausea, Routine 1447 (AUG Hold - Provider: Automatic Transfer Provider Hn - Reason: Patient off unit)1904 (AUG Unhold - Provider: Automatic Transfer Provider Hn) oxyCODONE (ROXICODONE) immediate release tablet 5-15 mg 5-15 mg, oral, EVERY 3 HOURS PRN, Starting on Tue06/10/23 at 0508, Until 06/11/23 at 1835, Pain, Routine 1447 (AUG Hold - Provider: Automatic Transfer Provider Hn - Reason: Patient off unit)1904 (AUG Unhold - Provider: Automatic Transfer Provider Hn) 0129 (Given - Provider: Lyly Qureshi, RN)0550 (Given - Provider: Lyly Qureshi RN)1335 (Given - Provider: Kieran Bender RN) sodium chloride 0.9 % irrigation (CANCELED) PRN, Starting on Tue06/10/23 at 1633, Until Tue06/10/23 at 1747, Routine, Intraprocedure 1633 (Given - Provider: Rodney Lai MD) thrombin (bovine) 5,000 unit topical solution (CANCELED) PRN, Starting on Tue06/10/23 at 1633, Until Tue06/10/23 at 1747, Intraprocedure 1633 (Given - Provider: Rodney Lai MD - Comment: COMBINED WITH SALINE AND GELFOAM POWDER, USED TOPICALLY) Linked Groups Order Group 1: acetaminophen (TYLENOL) tablet 1,000 mgJump to med 1,000 mg, oral, EVERY 6 HOURS, First dose on Tue06/10/23 at 0600, Until Discontinued, Routine Or acetaminophen (TYLENOL) suppository 975 mgJump to med 975 mg, rectal, EVERY 6 HOURS, First dose on Tue06/10/23 at 0600, Until Discontinued, Routine Group 2: ondansetron (ZOFRAN-ODT) disintegrating tablet 4 mgJump to med 4 mg, oral, EVERY 6 HOURS PRN, Starting on Tue06/10/23 at 0508, Until 06/11/23 at 1835, Nausea, Routine Or ondansetron (PF) (ZOFRAN) injection 4 mgJump to med 4 mg, intravenous, EVERY 6 HOURS PRN, Starting on Tue06/10/23 at 0508, Until 06/11/23 at 1835, Nausea, Routine documented in this encounter Orders Medications Ordered That Zaid ht Not Have Been Administered Count Last Ordered Date First Ordered Date acetaminophen (TYLENOL) solu tion unit dose cup 995 mg 1 06/10/2023 acetaminophen (TYLENOL) suppository 975 mg 1 06/10/2023 acetaminophen (TYLENOL) tablet 1,000 mg 2 1 08/11/2022 atropine 0.1 mg/mL syringe 0.5 mg 1 023 bisacodyL (DULCOLAX) suppository 10 mg 1 calcium carbonate (TUMS) tab let 500 mg (200 mg elemental calcium) 2 Tablet 1 06/10/2023 ceFAZolin (ANCEF) syringe 2 g 1 06/10/2023 diphenhydrAMINE (BENADRYL) i njection 12.5 mg 1 06/10/2023 docusate sodium (COLACE) capsule 200 mg 1 1 08/11/2022 fentaNYL citrate (PF) injection 25-50 mcg 1 06/10/2023 gelatin absorbable powder (SURGIFOAM) 1 HYDROmorphone (DILAUDID) tablet 2-4 mg 1 HYDROmorphone (PF) (DILAUDID ) 0.5 mg/0.5 mL syringe 0.3-0.5 mg 1 06/10/2023 influenza vaccine quad 2022- (PF) (6 mos+) IM injection-syringe 0.5 mL 1 06/10/2023 lactated ringers (LR) infusion 1 06/10/2023 lidocaine (PF) 10 mg/mL (1 % ) injection 2 mg 1 06/10/2023 naloxone (NARCAN) injection 0.2 mg 1 2022 ondansetron (PF) (ZOFRAN) injection 4 mg 2 06/10/2023 ondansetron (ZOFRAN-ODT) dis integrating tablet 4 mg 1 06/10/2023 polyethylene glycol 3350 (TX RALAX) packet 17 g 1 06/10/2023 senna (SENOKOT) tablet 2 Tablet 1 sodium chloride 0.9 % irrigation 1 06/10/20 thrombin (bovine) 5,000 unit topical solution 1 06/10/2023 Diet Count Last Ordered Date First Orde red Date DISCHARGE DIET 1 06/11/2023 Nursing Count Last Ordered Date First Orde red Date ACTIVITY INSTRUCTIONS 1 06/11/2023 BATHING INSTRUCTIONS 1 06/11/2023 WOUND CARE INSTRUCTIONS 1 06/11/2023 PT Count Last Ordered Date First Orde red Date PT EVALUATION AND TREAT 1 06/10/2023 Admission Count Last Ordered Date First Orde red Date ADMIT TO INPATIENT 1 06/10/2023 Transfer Count Last Ordered Date First Orde red Date ED BED REQUEST 1 06/10/2023 Discharge Count Last Ordered Date First Orde red Date DISCHARGE PATIENT 1 06/11/2023 Legal Count Last Ordered Date First Orde red Date MISCELLANEOUS DISCHARGE INSTRUCTIONS 1 05/27 Consult to Social Work Count Last Ordered Date First Ordered Date CONSULT SOCIAL WORK 1 06/10/2023 documented in this encounter Care Teams Assistant District Attorney Relationship Specialty Start Date End Date None, Provider PCP - General 06/09/23 documented as of this encounter
--- OUTSIDE RECORDS SUMMARY | 2024-01-20 00:09 | XMS_ITS | Encounter Summary ---
Author Organization [facility] Address [address] [place] [address] Care Team Providers Care Professor Of Communication Arts Name Role Phone None, Provider Primary Care Provider Ricardo e Encounter Details Date Type Department Care Team (Latest Contact Info) Description 09/06/2023 11:44 EDT - 09/06/2023 23:59 EDT [address] Encounter [address] [place], [place] [phone] Cervical myelopathy ([facility]); S/P cervical spinal fusion Discharge Disposition: Home or Self Care Social [...] No 06/10/2023 documented as of this encounter Medications at Time of Discharge [...] Daily Max: 90 mg 60 Tablet 06/11/2023 documented as of this encounter Discharge Disposition Disposition Code Departure Means Destination Home or Self Care documented in this encounter Plan of Treatment Upcoming Encounters Date Type Department Care Team (Late st Contact Info) Description 06/04/2024 12:00 EST Office Visit [facility] Spine [facility] - [address] [place] [address] Rodney Lai MD [address] [place] [phone] documented as of this encounter Procedures Procedure Name Priority Date/Time Associated Diagnosis Comments XR CERVICAL SPINE 2-3 VIEWS Routine 09/06/2023 11:53 EDT Cervical myelopathy ([facility]) S/P cervical spinal fusion documented in this encounter Results * XR CERVICAL SPINE 2-3 VIEWS (09/06/2023 11:53 EDT) Anatomical Region Laterality Modality Computed Radiogr aphy 09/07/2023 13:3 4 EDT Impressions 09/07/2023 13:34 EDT FINDINGS/IMPRESSION: Unchanged C6-C7 fusion hardware, alignment, and degenerative changes compared to 07/26/2023. As previously seen, the C6-C7 interbody graft is positioned along the anterior aspect of the disc space. No significant vertebral body height loss. Unremarkable soft tissues. [id number] Narrative 09/07/2023 13:34 EDT CERVICAL SPINE, 2 VIEWS HISTORY: Neck pain, prior fusion. TECHNIQUE: AP and lateral cervical spine radiographs. COMPARISON: Cervical spine radiographs 07/26/2023. Procedure Note Sanchez Dewitt MD - 09/07/2023 CERVICAL SPINE, 2 VIEWS HISTORY: Neck pain, prior fusion. TECHNIQUE: AP and lateral cervical spine radiographs. COMPARISON: Cervical spine radiographs 07/26/2023. IMPRESSION FINDINGS/IMPRESSION: Unchanged C6-C7 fusion hardware, alignment, and degenerative changescompared to 07/26/2023. As previously seen, the C6-C7 interbody graft ispositioned along the anterior aspect of the disc space. No significantvertebral body height loss. Unremarkable soft tissues. [id number] Rodney Lai MD IMG DIAGNOSTIC IMAG ING ORDERABLES documented in this encounter Visit Diagnoses Diagnosis Cervical myelopathy ([facility]) Cervical spondylosis with myelopathy S/P cervical spinal fusion Arthrodesis status documented in this encounter Care Teams Professor Of Communication Arts Relationship Specialty Start Date End Date None, Provider PCP - General 06/09/23 documented as of this encounter
--- OUTSIDE RECORDS SUMMARY | 2024-01-20 00:09 | XMS_ITS | Encounter Summary ---
Author Organization [facility] Address [address] [place] [address] Care Team Providers Care Tapper Balance Wheel Screw Hole Name Role Phone None, Provider Primary Care Provider Unavailabl e Reason for Visit * Reason Comments Pain Encounter Details Date Type Department Care Team (Late st Contact Info) Description 12/05/2023 12:00 EDT Office Visit [facility] Spine Program - [address] [place] [address] Rodney Lai MD [address] [place] [phone] S/P cervical spinal fusion (Primary Dx) Social History Tobacco Use Types [...] No 06/10/2023 documented as of this encounter Progress Notes * Rodney Lai MD - 12/05/2023 1200 EDT Maria L returns 6 mos out s/p C6-7 ACDF for central cord. He is doing ok. Notices increasing numbnessin his arms with increased activity at work. Has baseline ulnar digit numbness - but after increased strenuous activity at work it spreads to entire hands and forearms. Still having coordination/clumsiness issues with hands, as well as charley horse type feeling VAS Neck 3 VAS Arm 0 NDI 38 His gait is mildly spastic He can tandem gait slowly with a lot of concentration Manual motor testing 4-4+ HI/toy mechanic, 5 WF/WE XR today are consistent with surgery, no change in upright alignment or any signs of lucency aroundthe hardware. Bone graft interval consolidation - yet incompletely healed Assessment & Plan: 6 mos out from C6-7 ACDF, doing ok. Residual deficits in numbness, coordination and strength. Likely represents damage to the spinal cord from the injury itself, but given that he has increase in symptoms with increased activity, I would like to be evaluate if there is any ongoing stenosis that maybe contributing with an updated MRI. I will call him with those results. I will see Maria L back for a final checkup in 6 mos time with repeat 4 view cervical films. I spent a total of at least 20 minutes on the date of this encounter meeting with the patient and reviewing documentation/coordinating care as described in the above note. documented in this encounter Plan of Treatment Upcoming Encounters Date Type Department Care Team (Late st Contact Info) Description 06/04/2024 12:00 EST Office Visit [facility] Spine Program - [address] [address] Rodney Lai MD [address] [place] [phone] documented as of this encounter Visit Diagnoses Diagnosis S/P cervical spinal fusion- Primary Arthrodesis status documented in this encounter Care Teams Tapper Balance Wheel Screw Hole Relationship Specialty Start Date End Date None, Provider PCP - General 06/09/23 documented as of this encounter
--- OUTSIDE RECORDS SUMMARY | 2024-01-20 00:09 | XMS_ITS | Encounter Summary ---
Author Organization [facility] Address [address] [place] [address] Care Team Providers Care Brine Tank Operator Name Role Phone None, Provider Primary Care Provider Unavailabl e Reason for Referral * Radiology Services (Routine/Next Available) - Closed Specialty Diagnoses / Procedures Referred By Elana t Referred To Contact Diagnoses S/P cervical spinal fusion Neck pain Cervical myelopathy (HCC-CMS) Procedures MR CERVICAL SPINE WO CONTRAST Rodney Lai MD [address] [place] [phone] Referral ID Status Reason Start Date Expiration Date Visits Re quested Visits Authorized [id number] Closed 12/05/2023 1 1 Reason for Visit * Reason Onset Date Comments Other 12/05/2023 Encounter Details Date Type Department Care Team (Late st Contact Info) Description 12/05/2023 Orders Only [facility] Spine Program - [address] [address] Rodney Lai MD [address] [place] [phone] S/P cervical spinal fusion (Primary Dx); Neck pain; Cervical myelopathy (HCC-CMS) Social History Tobacco Use Types Packs/Day Years [...] Description 06/04/2024 12:00 EST Office Visit [facility] Spine Program - [address] [address] Rodney Lai MD [address] [place] [phone] Scheduled Orders Name Type Priority Associated Diagnoses Orde r Schedule MR CERVICAL SPINE WO CONTRAST Imaging Routine S/P cervical spinal fusion Neck pain Cervical myelopathy (HCC-CMS) Expected: 12/12/2023 (Approximate), Expires: 06/05/2025 documented as of this encounter Visit Diagnoses Diagnosis S/P cervical spinal fusion- Primary Arthrodesis status Neck pain Cervicalgia Cervical myelopathy (HCC-CMS) Cervical spondylosis with myelopathy documented in this encounter Care Teams Brine Tank Operator Relationship Specialty Start Date End Date None, Provider PCP - General 06/09/23 documented as of this encounter
--- OUTSIDE RECORDS SUMMARY | 2024-01-20 00:09 | XMS_ITS | Encounter Summary ---
Author Organization [facility] Address [address] [place] [address] Care Team Providers Care Registration Coordinator Name Role Phone None, Provider Primary Care Provider Unavailabl e Reason for Visit * Reason Onset Date Comments Other 12/20/2023 Encounter Details Date Type Department Care Team (Late st Contact Info) Description 12/20/2023 Telephone [facility] Spine Program - [facility] [address] [facility] [place] [place] [address] Rodney Lai MD [address] [place] [phone] Other Social History Tobacco Use Types Packs/Day Years [...] Encounter - Nikole Hernandez MA - 12/20/2023 1016 EDT Left message for Maria L as [facility] will not schedule his MR until he completes a safety questionnaire. Asked him to call back the office so I can discuss this with him or he can call to [facility] to see if they will go over with him. documented in this encounter Plan of Treatment Upcoming Encounters Date Type Department Care Team (Late st Contact Info) Description 06/04/2024 12:00 EST Office Visit [facility] Spine Program - [address] [place] [address] Rodney Lai MD [address] [place] [phone] documented as of this encounter Visit Diagnoses Not on filedocumented in this encounter Care Teams Registration Coordinator Relationship Specialty Start Date End Date None, Provider PCP - General 06/09/23 documented as of this encounter
--- OUTSIDE RECORDS SUMMARY | 2024-01-20 00:09 | XMS_ITS | Encounter Summary ---
Author Organization [facility] Address [address] [place] [address] Care Team Providers Care Boarding House Manager Name Role Phone None, Provider Primary Care Provider Unavailabl e Reason for Referral * PT/OT/ST (Routine/Next Available) - Closed Specialty Diagnoses / Procedures [facility] Referred To Contact Diagnoses Cervical myelopathy (HCC-CMS) 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HCC-CMS) Cervical spinal cord compression (HCC-CMS) Rodney Lai MD [address] [place] [phone] Referral ID Status Reason Start Date Expiration Date V isits Requested Visits Authorized [id number] Closed Specialty Services Required 06/15/2023 1 1 Question Answer Reason for Request: Please evaluate and treat per protocol for C6/7 anterior cervical discetomy and fusion Reason for Visit * Reason Onset Date Comments Physical Therapy 06/15/2023 Post-op PT refe rral closer to home Encounter Details Date Type Department Care Team (Late st Contact Info) Description 06/15/2023 Orders Only [facility] [place] [facility] Spine Program - [address] [address] Pavithra Garcia, TEE Cervical myelopathy (HCC-CMS) (Primary Dx); 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HCC-CMS); Cervical spinal cord compression (HCC-CMS) Social History Tobacco Use Types Packs/Day [...] 06/04/2024 12:00 EST Office Visit [facility] [place] [facility] Spine Program - [address] [place] [address] Rodney Lai MD [address] [place] [phone] Scheduled Referrals Name Type Priority Associated Diagnoses Order Schedule AMB CONS/FOLLOW UP PHYSICAL THERAPY - OUTSIDE OF NETWORK Outpatient Referral Routine/Next Available Cervical myelopathy (HCC-CMS) 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HCC-CMS) Cervical spinal cord compression (HCC-CMS) Expected: 06/22/2023 (Approximate), Expires: 06/15/2024 documented as of this encounter Visit Diagnoses Diagnosis Cervical myelopathy (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) Unspecified disease of spinal cord Cervical spinal cord compression ([facility]) Unspecified disease of spinal cord documented in this encounter Care Teams Boarding House Manager Relationship Specialty Start Date End Date None, Provider PCP - General 06/09/23 documented as of this encounter
--- OUTSIDE RECORDS SUMMARY | 2024-01-20 00:09 | XMS_ITS | Encounter Summary ---
Author Organization [facility] Address [address] [place] [address] Care Team Providers Care Snuff Maker Name Role Phone None, Provider Primary Care Provider Unavailabl e Reason for Referral * PT/OT/ST (Routine/Next Available) - Closed Specialty Diagnoses / Procedures Referred By Contac t Referred To Contact Diagnoses Cervical myelopathy ([facility]) S/P cervical spinal fusion Rodney Lai MD [address] [place] [phone] Referral ID Status Reason Start Date Expiration Date V isits Requested Visits Authorized [id number] Closed Specialty Services Required 07/26/2023 1 1 Question Answer Reason for Request: s/p ACDF 06/10/2023; myelopathy - balance/coordination; Reason for Visit * Reason Comments Pain Post-OP Follow Up * Consult (Routine/Next Available) - Receiving Office to Obtain Authorization Specialty Diagnoses / Procedures Referred By Contac t Referred To Contact Orthopedic Surgery Diagnoses 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[facility]) [facility] Orthopedics [address] [place] [address] [facility] [address] [place] [address] Referral ID Status Reason Start Date Expiration Date Visits Requested Visits Authorized [id number] Receiving Office to Obtain Authorization Specialty Services Required 06/10/20 23 1 1 Encounter Details Date Type Department Care Team (Late st Contact Info) Description 07/26/2023 10:00 EST Post-op Visit [facility] Spine Program - [facility] [address] [place] [address] Rodney Lai MD [address] [place] [phone] Cervical myelopathy (HCC-CMS) (Primary Dx); S/P cervical spinal fusion Social History Tobacco Use Types Packs/Day Years [...] Progress Notes * Rodney Lai MD - 07/26/2023 1000 EST Maria L returns 6 wks out s/p C6-7 ACDF for acute myelopathy. He is doing reasonably well. He noticedimmediate improvement in his balance post-op, though not yet normal - still somewhat off and feels that it has plateau'd a bit. He has ongoing numbness in the ulnar digits. No swallowing difficulty at this point. VAS Neck 2 VAS Arm 0 NDI 30 Incision fully healed. He walks fluidly. 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 Bone graft early interval consolidation Assessment & Plan: 6 wks out from C6-7 ACDF, doing reasonably well. Partial not complete improvements. Discussed he would be ok to go back to work light duty which is his preference, note provided. I will see Maria L back in 6 wks with repeat AP/Lat films. documented in this encounter Plan of Treatment Upcoming Encounters Date Type Department Care Team (Late st Contact Info) Description 06/04/2024 12:00 EST Office Visit [facility] Spine Program - [address] [id number] Rodney Lai MD [address] [place] [phone] Scheduled Referrals Name Type Priority Associated Diagnoses Order Schedule AMB CONS/FOLLOW UP PHYSICAL THERAPY - OUTSIDE OF NETWORK Outpatient Referral Routine/Next Available Cervical myelopathy ([facility]) S/P cervical spinal fusion Expected: 08/02/2023 (Approximate), Expires: 07/26/2024 documented as of this encounter Visit Diagnoses Diagnosis Cervical myelopathy ([facility])- Primary Cervical spondylosis with myelopathy S/P cervical spinal fusion Arthrodesis status documented in this encounter Care Teams Snuff Maker Relationship Specialty Start Date End Date None, Provider PCP - General 06/09/23 documented as of this encounter
--- OUTSIDE RECORDS SUMMARY | 2024-01-20 00:09 | XMS_ITS | Encounter Summary ---
Author Organization [facility] Address [address] [place] [address] Care Team Providers Care Information Assurance Name Role Phone None, Provider Primary Care Provider iRcardo e Encounter Details Date Type Department Care Team (Latest Contact Info) Description 07/26/2023 9:45 EST - 07/26/2023 23:59 EST Hospital Encounter [address] [facility] [place], [place] [id number] Cervical myelopathy ([facility] Discharge Disposition: Home or Self Care Social [...] 06/04/2024 12:00 EST Office Visit [facility] Spine Program - [address] [address] Rodney Lai MD [address] [place] [phone] documented as of this encounter Procedures Procedure Name Priority Date/Time Associated Diagnosis Comments XR CERVICAL SPINE 2-3 VIEWS Routine 07/26/2023 9:56 EST Cervical myelopathy ([facility]) documented in this encounter Results * XR CERVICAL SPINE 2-3 VIEWS (07/26/2023 9:56 EST) Anatomical Region Laterality Modality Computed Radiogr aphy 07/27/2023 16:3 1 EST Impressions 07/27/2023 16:31 EST Findings/ Impression: Prior anterior cervical discectomy and fusion spanning C6-C7. No evidence of hardware complication. Unchanged straightening of the normal cervical lordosis. Redemonstrated discogenic degenerative changes. The soft tissues are normal. [id number] Narrative 07/27/2023 16:31 EST XR CERVICAL SPINE 2-3 VIEWS ??07/26/2023 9:48 AM Clinical History/Comments: NECK PAIN S/P C6-7 DIS/FUSION;G95.9:Cervical myelopathy (HCC-CMS) Comparison: Cervical spine regressed 06/11/2023 Technique: AP, lateral views of the cervical spine. Procedure Note Flaco Solis MD - 07/27/2023 XR CERVICAL SPINE 2-3 VIEWS 07/26/2023 9:48 AM Clinical History/Comments: NECK PAIN S/P C6-7 DIS/FUSION;G95.9:Cervical myelopathy (HCC-CMS) Comparison: Cervical spine regressed 06/11/2023 Technique: AP, lateral views of the cervical spine. IMPRESSION Findings/ Impression: Prior anterior cervical discectomy and fusion spanning C6-C7. No evidenceof hardware complication. Unchanged straightening of the normal cervical lordosis. Redemonstrateddiscogenic degenerative changes. The soft tissues are normal. [id number] Rodney Lai MD IMG DIAGNOSTIC IMAG ING ORDERABLES documented in this encounter Visit Diagnoses Diagnosis Cervical myelopathy (HCC-CMS) Cervical spondylosis with myelopathy documented in this encounter Care Teams Information Assurance Relationship Specialty Start Date End Date None, Provider PCP - General 06/09/23 documented as of this encounter
--- OUTSIDE RECORDS SUMMARY | 2024-01-20 00:09 | XMS_ITS | Encounter Summary ---
Author Organization [facility] Address [address] [place] [address] Care Team Providers Care Field Traffic Investigator Name Role Phone None, Provider Primary Care Provider Unavailabl e Reason for Visit * Reason Comments Pain Encounter Details Date Type Department Care Team (Late st Contact Info) Description 09/06/2023 12:00 EDT Office Visit [facility] Spine Program - [address] [place] [address] Rodney Lai MD [address] [place] [phone] S/P cervical spinal fusion (Primary Dx); Cervical myelopathy ([facility]) Social History Tobacco Use Types Packs/Day Years [...] Progress Notes * Rodney Lai MD - 09/06/2023 1200 EDT Maria L returns 3 mos out s/p C6-7 ACDF. He is doing ok. Has been back to work limited duty - noticesdifficulty with balance and hand coordination the more active he is. No swallowing difficulty at this point. VAS Neck 3 VAS Arm 0 NDI 32 Incision fully healed. He walks cautiously. 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 Bone graft interval consolidation. Assessment & Plan: 3 mos out from C6-7 ACDF, doing ok. He is going to ramp up activities slowly over the next few months as pain allows. He is still limited from the damage to his spinal cord and the ongoing dysfunction in coordination/strength. Will keep him at his current work limitations at the current time. I will see Maria L back in 3 mos time with 4 view cervical films. documented in this encounter Plan of Treatment Upcoming Encounters Date Type Department Care Team (Late st Contact Info) Description 06/04/2024 12:00 EST Office Visit [facility] Spine Program [place] [address] Rodney Lai MD [address] [place] [phone] documented as of this encounter Visit Diagnoses Diagnosis S/P cervical spinal fusion- Primary Arthrodesis status Cervical myelopathy ([facility]) Cervical spondylosis with myelopathy documented in this encounter Care Teams Field Traffic Investigator Relationship Specialty Start Date End Date None, Provider PCP - General 06/09/23 documented as of this encounter
--- OUTSIDE RECORDS SUMMARY | 2024-01-20 00:09 | XMS_ITS | Encounter Summary ---
Author Organization [facility] Address [address] [place] [address] Care Team Providers Care Sales Route Driver Name Role Phone None, Provider Primary Care Provider Unavailabl e Reason for Visit * Reason Onset Date Comments Other 09/01/2023 Encounter Details Date Type Department Care Team (Late st Contact Info) Description 09/01/2023 Orders Only [facility] Spine Program - [address] [place] [address] Rodney Lai MD [address] [place] [phone] Cervical myelopathy ([facility]) (Primary Dx); S/P cervical spinal fusion Social [...] Info) Description 06/04/2024 12:00 EST Office Visit [facility] Spine Program - [address] [address] Rodney Lai MD [address] [place] [phone] documented as of this encounter Results [...] vertebral body height loss. Unremarkable soft tissues. [id number] Narrative 09/07/2023 13:34 EDT CERVICAL SPINE, 2 [...] significantvertebral body height loss. Unremarkable soft tissues. [id number] Rodney Lai MD IMG DIAGNOSTIC IMAG ING ORDERABLES documented in this encounter Visit Diagnoses Diagnosis Cervical myelopathy (HCC-CMS)- Primary Cervical spondylosis with myelopathy S/P cervical spinal fusion Arthrodesis status Cervical myelopathy (HCC-CMS) Cervical spondylosis with myelopathy S/P cervical spinal fusion Arthrodesis status documented in this encounter Care Teams Sales Route Driver Relationship Specialty Start Date End Date None, Provider PCP - General 06/09/23 documented as of this encounter
--- OUTSIDE RECORDS SUMMARY | 2024-01-20 00:09 | XMS_ITS | Clinical Summary ---
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[facility]) 06/10/2023 Cervical spinal cord compression ([facility]) 06/09 Encounters Date Type Department Care Team Description 12/20/2023 Telephone [facility] Spine Program [place] [address] Rodney Lai MD Other 12/20/2023 Telephone [facility] Spine [facility] [place] [address] Rodney Lai MD Orders (Non Pre-visit) (MRI screen form ) 12/05/2023 12:00 EDT - 12/05/2023 23:59 EDT Hospital Encounter [address] [place] [address] [place] [address] Neck pain Discharge Disposition: Home or Self Care 12/05/2023 12:00 EDT Office Visit [facility] Spine Program - [address] [place] [address] Rodney Lai MD S/P cervical spinal fusion (Primary Dx) 12/05/2023 Orders Only [facility] Spine Program [place] [address] Rodney Lai MD S/P cervical spinal fusion (Primary Dx); Neck pain; Cervical myelopathy ([facility]) 12/01/2023 Orders Only [facility] Spine Program - [address] [address] Rodney Lai MD Neck pain (Primary Dx) from Last 3 Months Immunizations Name Administration Dates Next Due Covid-19 Ad26 Vaccine (JANSS EN COVID-19) PF 0.5 ml IM (18 yrs+) 12/16/2020 DT Vaccine <7YO IM 12/17/2004 MMR Vaccine SQ 12/17/2004 Varicella (Chickenpox) vaccine (VARIVAX) SQ 03/28,12/17/2004 Surgical History Surgery Date Site/Laterality Comments HERNIA REPAIR Social History Tobacco Use Types Packs/Day Years [...] 14:11 EST Sexual Orientation Not on file Obstetrics History Last Filed Vital Signs Vital Sign Reading [...] Body Mass Index 30.94 06/10/2023 0031 EST Plan of Treatment Upcoming Encounters Date Type Department Care Team (Late st Contact Info) Description 06/04/2024 12:00 EST Office Visit [facility] Spine Program - [address] [place] [address] Rodney Lai MD [address] [place] [phone] Health Maintenance Due Date Last Done Comments Hepatitis C Screen 1992 Hepatitis B Vaccine (1 of 3 - 19+ 3-dose series) 04/05 COVID-19 Vaccine ( season) 2023 Medical Devices Implanted Type Area Production Checker Device Identifier Shelf Expiration Date Model / Serial / Lot Bone Spacer Triad 7mm X 11mm X 14mm [id number] - [id number] Implanted:Qty : 1 on 06/10/2023 by Rodney Lai MD at [facility] Bone N/A: Spine Cervical [employer] 02/03/2028 [id number] / [id number] / Plate Acp 1.9h 24mm 1 Level - [id number] Implanted:Qty : 1 on 06/10/2023 by Rodney Lai MD at [facility] Plate Implant N/A: Spine Cervical [employer] [id number] / / Screw Acp 3.5 X 17mm Self-Drill Fixed - [id number] Implanted:Qty : 3 on 06/10/2023 by Rodney Lai MD at [facility] Screw Implant N/A: Spine Cervical [employer] [id number] / / Screw Acp 4.0 X 17mm Self Tap Fixed - [id number] Implanted:Qty : 1 on 06/10/2023 by Rodney Lai MD at [facility] Screw Implant N/A: Spine Cervical [employer] [id number] / / Procedures Procedure Name Priority Date/Time [...] loss. No dynamic instability. Unremarkable soft tissues. [id number] Narrative 12/06/2023 13:33 EDT CERVICAL SPINE, 4 VIEWS HISTORY: Neck pain, prior fusion. TECHNIQUE: AP, lateral, flexion, extension views of the cervical spine. Resulting Agency Comment [id number] Procedure Note Sanchez Dewitt MD - 12/06/2023 [...] height loss. No dynamicinstability. Unremarkable soft tissues. [id number] Rodney Lai MD IMG DIAGNOSTIC IMAG ING ORDERABLES from Last 3 Months Snelgrove, Maria L E Personal/Family Self 1990 [address] [place] [address] [place]nel[place], Maria L E Personal/Family Self 1990 [address] [place] [address] Snel[place], Maria L E Personal/Family Self 1990 [address] [place] [address] [place], Maria L E Personal/Family Self 1990 [address] [place] [address] Advance Directives For more information, please contact: [phone] * Full Code (Latest Code Status on File) Date Activated Date Inactivated Comments 06/10/2023 2:35 06/11/2023 18:40 Question Answer Comments When the patient has NO PULSE: Full Code / CPR Who Made the Decision? Patient Care Teams Rn Travel Relationship Specialty Start Date End Date None, Provider PCP - General 06/09/23
--- OUTSIDE RECORDS SUMMARY | 2024-01-20 00:09 | XMS_ITS | Encounter Summary ---
Author Organization [facility] Address [address] [place] [address] Care Team Providers Care It Infrastructure Engineer Name Role Phone None, Provider Primary Care Provider Unavailabl e Reason for Visit * Reason Onset Date Comments Other 07/05/2023 Encounter Details Date Type Department Care Team (Late st Contact Info) Description 07/05/2023 Orders Only [facility] Spine Program - [address] [place] [address] Rodney Lai MD [address] [place] [phone] Cervical myelopathy ([facility]) (Primary Dx) Social History Tobacco Use Types [...] 06/04/2024 12:00 EST Office Visit [facility] Spine Program - [address] [place] [address] Rodney Lai MD [address] [place] [phone] documented as of this encounter Results * XR CERVICAL SPINE 2-3 VIEWS (07/26/2023 9:56 EST) Anatomical Region Laterality Modality Computed Radiogr aphy 07/27/2023 16:3 1 EST Impressions 07/27/2023 16:31 EST Findings/ Impression: Prior anterior cervical discectomy and fusion spanning C6-C7. No evidence of hardware complication. Unchanged straightening of the normal cervical lordosis. Redemonstrated discogenic degenerative changes. The soft tissues are normal. [id number] Narrative 07/27/2023 16:31 EST XR CERVICAL SPINE [...] degenerative changes. The soft tissues are normal. [id number] Rodney Lai MD IMG DIAGNOSTIC IMAG ING ORDERABLES documented in this encounter Visit Diagnoses Diagnosis Cervical myelopathy (HCC-CMS)- Primary Cervical spondylosis with myelopathy Cervical myelopathy (HCC-CMS) Cervical spondylosis with myelopathy documented in this encounter Care Teams It Infrastructure Engineer Relationship Specialty Start Date End Date None, Provider PCP - General 06/09/23 documented as of this encounter
--- OUTSIDE RECORDS SUMMARY | 2024-01-20 00:09 | XMS_ITS | Encounter Summary ---
Author Organization [facility] Address [address] [place] [address] Care Team Providers Care Voice Network Administrator Name Role Phone None, Provider Primary Care Provider Ricardo e Encounter Details Date Type Department Care Team (Latest Contact Info) Description 12/05/2023 12:00 EDT - 12/05/2023 23:59 EDT Hospital Encounter [facility] [address] [place] [address] Neck pain Discharge Disposition: Home or Self Care Social [...] [facility] Spine Program - [address] [address] Rodney Lai MD [address] [place] [phone] documented as of this encounter Procedures Procedure Name Priority Date/Time Associated Diagnosis Comments XR CERVICAL SPINE 4-5 VIEWS Routine 12/05/2023 12:11 EDT Neck pain documented in this encounter Results * XR [...] loss. No dynamic instability. Unremarkable soft tissues. [id number] Narrative 12/06/2023 13:33 EDT CERVICAL SPINE, 4 VIEWS HISTORY: Neck pain, prior fusion. TECHNIQUE: AP, lateral, flexion, extension views of the cervical spine. Resulting Agency Comment [id number] Procedure Note Sanchez Dewitt MD - 12/06/2023 [...] height loss. No dynamicinstability. Unremarkable soft tissues. [id number] Rodney Lai MD IMG DIAGNOSTIC IMAG ING ORDERABLES documented in this encounter Visit Diagnoses Diagnosis Neck pain Cervicalgia documented in this encounter Care Teams Voice Network Administrator Relationship Specialty Start Date End Date None, Provider PCP - General 06/09/23 documented as of this encounter
--- OUTSIDE RECORDS SUMMARY | 2024-01-20 00:09 | XMS_ITS | Encounter Summary ---
Author Organization [facility] Address [address] [place] [address] Care Team Providers Care Charge Nurse Name Role Phone None, Provider Primary Care Provider Unavailabl e Reason for Visit * Reason Onset Date Comments Appointment Related 07/01/2023 Encounter Details Date Type Department Care Team (Late st Contact Info) Description 07/01/2023 Telephone [facility] Rehabilitation Therapy - [address] [address] Physical, Therapy Appointment Related Social History Tobacco Use Types Packs/Day Years [...] encounter Miscellaneous Notes * Telephone Encounter - Eloisa Villegas - 07/01/2023 1157 EST [facility] - [address] [address] Telephone Intake Information for Scheduling NEW Patients for Therapy Scheduling Information: C6-7 discectomy/fusion DOS 06/10/23 Referral Link: Referral for Cervical myelopathy ([facility]); 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[facility]-CMS); Cervical spinal cord compression ([facility]) (06/15/2023) Primary Insurance: Workers Compensation All Workers Comp information is on file - Workers Comp Carrier: GRISEL REDDY , Date of Injury: 06/08/23 [facility] SCHEDULERS ONLY: If PRIME andreferred by Ortho from [facility], send IN-BASKET msg to [facility] requesting authorization. Secondary Insurance: None Notes: Eloisa Villegas 07/01/2023 documented in this encounter Plan of Treatment Upcoming Encounters Date Type Department Care Team (Late st Contact Info) Description 06/04/2024 12:00 EST Office Visit [facility] Spine Program - [address] [place] [address] Rodney Lai MD [address] [place] [phone] documented as of this encounter Visit Diagnoses Not on filedocumented in this encounter Care Teams Charge Nurse Relationship Specialty Start Date End Date None, Provider PCP - General 06/09/23 documented as of this encounter
--- OUTSIDE RECORDS SUMMARY | 2024-01-20 00:09 | XMS_ITS | Encounter Summary ---
Author Organization [facility] Address [address] [place] [address] Care Team Providers Care Crown Buffer Name Role Phone None, Provider Primary Care Provider Unavailabl e Reason for Referral * PT/OT/ST (Routine/Next Available) - New Request Specialty Diagnoses / Procedures Referred By [facility] Referred To Contact Rehab Therapies Diagnoses Cervical myelopathy (HCC-CMS) 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HCC-CMS) Cervical spinal cord compression (HCC-CMS) Rodney Lai MD [address] [place] [phone] [facility] Re[facility] Therapy [address] [place] [id number] Referral ID Status Reason Start Date Expiration Date Visits Requested Visits Authorized [id number] New Request Specialty Services Required 07/05/2023 1 1 Question Answer Scheduling Comments (optional ? describe specific scheduling needs if applicable): Evaluate and treat as per protocol. Reason for Request: please evaluate adn treat as per protocol Comments This referral may serve as a referral to occupational therapy if appropriate. Reason for Visit * Reason Onset Date Comments Physical Therapy 07/05/2023 Encounter Details Date Type Department Care Team (Late st Contact Info) Description 07/05/2023 Orders Only [facility] Spine Program - [address] [place] [address] Pavithra Garcia RN Cervical myelopathy (HCC-CMS) (Primary Dx); Cord compression [...] Info) Description 06/04/2024 12:00 EST Office Visit [facility] Spine Program - [address] [place] [address] Rodney Lai MD [address] [place] [phone] Scheduled Referrals Name Type Priority Associated Diagnoses Order Schedule AMB CONS/FOLLOW UP PHYSICAL THERAPY Outpatient Referral Routine/Next Available Cervical myelopathy (HCC-CMS) 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HCC-CMS) Cervical spinal cord compression (HCC-CMS) Expected: 07/05/2023 (Approximate), Expires: 07/05/2024 documented as of this encounter Visit Diagnoses Diagnosis Cervical myelopathy (HCC-CMS)- Primary Cervical spondylosis with myelopathy 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HCC-CMS) Unspecified disease of spinal cord Cervical spinal cord compression (HCC-CMS) Unspecified disease of spinal cord documented in this encounter Care Teams Crown Buffer Relationship Specialty Start Date End Date None, Provider PCP - General 06/09/23 documented as of this encounter
--- OUTSIDE RECORDS SUMMARY | 2024-01-20 00:10 | XMS_ITS | Encounter Summary ---
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 Referral ID Status Reason Start Date Expiration Date Visits Re quested Visits Authorized [id number] 1 1 Encounter Details Date Type Department Care Team (Late st Contact Info) Description 06/10/2023 15:15 EST Anesthesia Event [facility] [place] [address] [place], [place] [phone] Rene Summers MD [address] [facility], [address] [place] [address] Cheri Bowden [address] [place], [place] [address] Anesthesia Record Procedure Summary Procedure Name Responsible Anesthesiologist Anesthesia Start Time Anesthesia Stop Time C6/7 Anterior cervical discetomy and fusion (Spine Cervical) Rene Summers MD 06/10/23 1515 06/10/23 1805 Events Date Time Event Comment 06/10/2023 1515 An Start The patient was re-evaluated immediately before moderate or deep sedation use, before anesthesia induction, or before the anesthesia procedure. 1515 An Start Data 1524 An Induction The patient was reevaluated immediately before moderate or deep sedation use and before anesthesia induction. 1527 An Intubation 1528 Anesthesia Ready 1535 IV Placed 1553 Derek NIBP cuff not c apturing, troubleshooting 1601 An Surgeon on Cuff 1608 Incision 1634 Derek Pulse ox double -counting pulse 1742 An Extubation 1748 an stop data 180 Handoff to RN I completed my handoff to the receiving nurse during which we: 1. Identified the patient 2. Identified the responsible provider 3. Reviewed the pertinent medical history 4. Discussed the surgical course 5. Reviewed intra-op anesthesia management and issues during anesthesia 6. Set expectations for post-procedure period 7. Allowed opportunity for questions and acknowledgement of understanding. 180 An Stop Meds Name Total fentanyl citrate (PF) injection 100 mcg HYDROmorphone vial 2 mg/mL 2 mg ketAMINE 5 mL prefilled syringe 50 mg midazolam (versed) 1 mg/mL 2 mL vial 2 m g ondansetron (PF) (ZOFRAN) injection 4 mg lidocaine 2% (PF) injection glass vial 6 0 mg propOFol (DIPRIVAN) injection 1,737,582. 5 mcg succinylcholine 20 mg/mL vial 120 mg remifentanil (ULTIVA) 4,000 mcg in sodiu m chloride (NS) 100 mL 1,372.81 mcg ceFAZolin (ANCEF) syringe 2 g 2 g lactated ringers (LR) infusion 600 mL * Agents Name O2 N2O Air * Blood No blood administrations on file. Lines, Drains, and Airways Type Details Placement Removal Wound 06/10/23; 1622; Incision; Anterior; Neck; C6-7 ANTERIOR CERVICAL DISCECTOMY AND FUSION; N 06/10/23 1622 by Otilia Mcbride RN Peripheral IV 06/10/23; 0245; 18; Right; Antecubital; 06/10/23; 2057; Patient request; No complications, Catheter intact 06/10/23 0245 by Maty Sen, TEE 06/10/232057 by Darby Rodgers RN Peripheral IV 06/10/23; 1535; 18; 1.25; B Slaughter Introcan; Left; Hand; In OR by MD; 1; None; 70% IPA; 06/11/23; 1510; Discharged 06/10/23 1535 by Cheri Bowden 06/11/23 1510 by Kieran Bender RN Non-Surgical Airway 06/10/23; 1559 (jennifer lindsay via procedure documentation); 06/10/23; 1742 06/10/23 1559 by Cheri Bowden 06/10/23 1742 by Baldemar De MD Closed/Suction Drain 06/10/23; 1730; In OR by MD; 1; Anterior, Right; Neck; 15 Kiswahili; 06/11/23; 0715 (by provider at bedside.) 06/10/23 1730 by uJnito Love RN 06/11/23 0715 by Kieran Bender RN documented in this encounter Social History Tobacco Use Types Packs/Day Years [...] No 06/10/2023 documented as of this encounter OR Notes * Anesthesia Postprocedure Evaluation - Baldemar De MD - 06/10/2023 1805 EST Patient: Maria L Douglas Vital signs were reviewed with the recovery nurse. [facility] Value Taken Time BP 154/76 06/10/23 1800 Temp 37.2 06/10/23 1805 Resp 14 06/10/23 1805 Pulse From Oximetry 98 BPM 06/10/23 180 SpO2 97 % 06/10/23 180 Heart Rate 99 BPM 06/10/23 180 Vitals shown include unvalidated device data. Last Pain Score - Numeric Pain Level (Scale 1-10): 0 Type of Anesthesia - general Anesthesia Post Evaluation Post-procedure vitals reviewed and are stable. Level of consciousness: awake and alert and oriented Temperature status: normothermia and patient returned to pre-procedure baseline Respiratory status: airway patent, stable and face mask Cardiovascular status: stable Hydration status: adequate Nausea/Vomiting: none Pain management: adequate Post-Op Assessment: patient tolerated procedure well with no complications Patient participation: able to participate Disposition: inpatient Anesthesia Complications: No apparent anesthesia complications * Anesthesia Procedure Notes - Cheri Bowden - 06/10/2023 1558 ESTAssociated Order(s): Airway Airway Date/Time: 06/10/2023 15:27 Urgency: elective General Information and Staff Patient location during procedure: OR Resident/QUALITY LEAD: Baldemar De MD Performed: resident/QUALITY LEAD/AA Performed by: Cheri Bowden Authorized by: Pee Beth MD Indications and Patient Condition Indications for airway management: anesthesia Sedation level: GA Preoxygenated: yes Patient position: sniffing MILS Maintained: Yes Ventilation assessment: 0 - not attempted Final Airway Details Final airway type: endotracheal airway Successful airway: ETT Cuffed: yes Successful intubation technique: video laryngoscopy Delgado Facilitating devices/methods: intubating stylet Endotracheal tube insertion site: oral Blade: Mitzi Blade size: #3 ETT size (mm): 8.0 Cormack-Lehane Classification: view obtained with video laryngoscopy Placement verified by: chest auscultation, capnometry and palpation of cuff Measured from: lips ETT to lips (cm): 22 Number of attempts at approach: 1 Additional Comments Mac 3 blade fully inserted into oropharynx to obtain view; would recommend Mac 4 or Mejia 3 for subsequent intubations. * Anesthesia Preprocedure Evaluation - Baldemar De MD - 06/10/2023 1349 EST Anesthesia Preprocedure Evaluation Patient Medical History, including Anesthesia History reviewed. Chart and Nursing Notes reviewed, including NPO status and Medication History. Additional ROS/History Findings: Maria L Douglas is a 33 y.o. male with no significant PMH who presents with 6 weeks of decreased lower extremity sensation, gait changes, constipation who was found to have severe C6-7 stenosis. Plan for anterior cervical discectomy and fusion of C6-7. Appropriately NPO. No prior anesthetic records. No Known Allergies Review of Systems Constitutional: Negative. Respiratory: Negative. Cardiovascular: Negative. Musculoskeletal: Positive for neck pain. Neurological: Positive for sensory change and focal weakness. Endo/Heme/Allergies: Does not bruise/bleed easily. No past medical history on file. Relevant Problems No relevant active problems Physical Exam Airway Mallampati: II TM distance: >3 FB Neck ROM: full Cardiovascular Rhythm: regular Rate: normal Dental - normal exam Pulmonary Breath sounds clear to auscultation Abdominal Anesthesia Plan ASA 2 Anesthesia Type - general, to include TIVA. Anesthesia plan and risks discussed. Informed consent obtained from patient. Specific risks discussed were bleeding, myocardial infarction, nerve damage, dental injury, ICU placement, infection, nausea, vomiting and post-op intubation. Code status discussed? No The preoperative history and physical which was performed within 30 days of this procedure, has been reviewed and the clinically appropriate elements of the physical examination have been repeated. There are no changes to the documented history and physical or, if so, such changes are documented inthis note PAT Note Notes from 05/11/23 through 06/10/23 No notes of this type exist for this encounter. documented in this encounter Plan of Treatment Upcoming Encounters Date Type Department Care Team (Late st Contact Info) Description 06/04/2024 12:00 EST Office Visit [facility] Spine Program - [facility] [address] [facility] [place] [address] Rodney Lai MD [address] [place] [phone] documented as of this encounter Procedures Procedure Name Priority Date/Time Associated Diagnosis Comments ANESTHESIA INTUBATION Routine 06/10/2023 15:27 EST documented in this encounter Results * NC AN ELECTIVE ENDOTRACHEAL AIRWAY (06/10/2023 15:27 EST) Narrative Cheri Bowden - 06/10/2023 15:27 EST Cheri Bowden ? 06/10/2023 15:59 Airway Date/Time: 06/10/2023 15:27 Urgency: elective General Information and Staff Patient location during procedure: OR Resident/QUALITY LEAD: Baldemar De MD Performed: resident/QUALITY LEAD/AA Performed by: Cheri Bowden Authorized by: Pee Beth MD ?? Indications and Patient Condition Indications for airway management: anesthesia Sedation level: GA Preoxygenated: yes Patient position: sniffing MILS Maintained: Yes Ventilation assessment: 0 - not attempted Final Airway Details Final airway type: endotracheal airway Successful airway: ETT Cuffed: yes Successful intubation technique: video laryngoscopy Delgado Facilitating devices/methods: intubating stylet Endotracheal tube insertion site: oral Blade: Mitzi Blade size: #3 ETT size (mm): 8.0 Cormack-Lehane Classification: view obtained with video laryngoscopy Placement verified by: chest auscultation, capnometry and palpation of cuff Measured from: lips ETT to lips (cm): 22 Number of attempts at approach: 1 Additional Comments Mac 3 blade fully inserted into oropharynx to obtain view; would recommend Mac 4 or Mejia 3 for subsequent intubations. Pee Beth MD ANESTHESIA ORDDaisha ROSENTHAL documented in this encounter Visit Diagnoses Not on filedocumented in this encounter Administered Medications Inactive Administered Medications - up to 3 most recent administrations Medication Order MAR Action Action Date Dose Rate Site ceFAZolin (ANCEF) syringe 2 g 2 g, intravenous, Administer over 5 Minutes, [employer] REPAIRER TO O.R., 1 dose, First dose on Tue06/10/23 at 0700, Routine Given 06/10/2023 15:28 EST 2 g fentaNYL citrate (PF) injection intravenous, PRN, Starting on Tue06/10/23 at 1524, Until Tue06/10/23 at 1805, Routine, Anesthesia Intraprocedure Given 06/10/2023 15:24 EST 100 mcg HYDROmorphone (DILAUDUD) 2 mg/mL injection subcutaneous, PRN, Starting on Tue06/10/23 at 1529, Until Tue06/10/23 at 1805, Routine, Anesthesia Intraprocedure Given 06/10/2023 15:29 EST 2 mg ketAMINE in NaCl, iso-osmotic (KETALAR) 50 mg/5 mL (10 mg/mL) IV injection intravenous, PRN, Starting on Tue06/10/23 at 1524, Until Tue06/10/23 at 1805, Routine, Anesthesia Intraprocedure Given 06/10/2023 15:24 EST 50 mg lactated ringers (LR) infusion at 25 mL/hr, intravenous, CONTINUOUS, Starting on Tue06/10/23 at 1530, Until Tue06/11/23 at 1835, Routine Continued by Anesthesia 06/10/2023 15:15 EST 25 mL/hr New Bag 06/10/2023 15:02 EST 25 mL/hr lidocaine (PF) 20 mg/mL (2 %) injection intravenous, PRN, Starting on Tue06/10/23 at 1524, Until Tue06/10/23 at 1805, Routine, Anesthesia Intraprocedure Given 06/10/2023 15:24 EST 60 mg midazolam (PF) (VERSED) injection intravenous, PRN, Starting on Tue06/10/23 at 1515, Until Tue06/10/23 at 1805, Routine, Anesthesia Intraprocedure Given 06/10/2023 15:15 EST 2 mg ondansetron (PF) (ZOFRAN) injection intravenous, PRN, Starting on Tue06/10/23 at 1722, Until Tue06/10/23 at 1805, Routine, Anesthesia Intraprocedure Given 06/10/2023 17:22 EST 4 mg propOFol (DIPRIVAN) injection intravenous, PRN, Starting on Tue06/10/23 at 1524, Until Tue06/10/23 at 1805, Routine, Anesthesia Intraprocedure Rate Change 06/10/2023 17:18 EST 100 mcg/kg/min 65.58 mL/hr Rate Change 06/10/2023 15:51 EST 125 mcg/kg/min 81.975 mL/ hr New Bag 06/10/2023 15:28 EST 150 mcg/kg/min 98.37 mL/hr remifentanil (ULTIVA) 4,000 mcg in sodium chloride (NS) 100 mL intravenous, FA IP EQF CONTINUOUS PRN FOR ONE STEP MEDS, Starting on Tue06/10/23 at 1536, Until Tue06/10/23 at 1805, Anesthesia Intraprocedure Rate Change 06/10/2023 17:20 EST 0.08 mcg/kg/min 13.116 mL/hr New Bag 06/10/2023 15:36 EST 0.1 mcg/kg/min 16.395 mL/h r New Bag 06/10/2023 15:28 EST 0.15 mcg/kg/min 24.593 mL/ hr succinylcholine (ANECTINE) injection intravenous, PRN, Starting on Tue06/10/23 at 1525, Until Tue06/10/23 at 1805, Routine, Anesthesia Intraprocedure Given 06/10/2023 15:25 EST 120 mg documented in this encounter Care Teams Sander Hand Relationship Specialty Start Date End Date None, Provider PCP - General 06/09/23 documented as of this encounter
--- OUTSIDE RECORDS SUMMARY | 2024-01-20 00:10 | XMS_ITS | Encounter Summary ---
Author Organization [facility] Address [address] [place] [address] Care Team Providers Care Special Education Paraprofessional Name Role Phone None, Provider Primary Care Provider Unavailcuca e Encounter Details Date Type Department Care Team (Late st Contact Info) Description 01/17/2020 Lab Requisition [facility] Pathology & Laboratory Medicine - [facility] [address], [place] [address] Outr Resulting Lab, Provider Social History Tobacco Use Types Packs/Day Years Used Date Smoking Tobacco: Never Assessed Sex and Gender Information Value Date Recorded Sex Assigned at Not on file Gender Identity Male 06/09/2023 14:11 EST Sexual Orientation Not on file documented as of this encounter Plan of Treatment Upcoming Encounters Date Type Department Care Team (Late st Contact Info) Description 06/04/2024 12:00 EST Office Visit [facility] Spine Program - [address] [address] Rodney Lai MD [address] [place] [phone] documented as of this encounter Procedures Procedure Name Priority Date/Time Associated Diagnosis Comments DO NOT ORDER STANDALONE - BROAD COVID TEST Today 01/17/2020 13:17 EDT COVID-19 TESTING Routine 01/17/2020 13:1 7 EDT documented in this encounter Results * DO NOT ORDER STANDALONE - BROAD COVID TEST (01/17/2020 13:17 EDT) COVID-19 rt-PCR Result NEGATIVE Negative 01/19/2020 1:27 EDT [facility] Comment: 2019-novel Coronavirus (2019-nCoV) not detected by the qRT-PCR assay. Consider testing for other respiratory viruses or re-collecting for 2019-nCoV testing. Note: Optimum timing for peak viral levels during infections caused by 2019-nCoV have not been determined. Collection of multiple specimens from the same patient may be necessary to detect the virus. Limitations Positive results are indicative of active infection with SARS-CoV-2 but do not rule out bacterial infection or co-infection with other viruses. The agent detected may not be the definite cause of disease. In addition, detection of viral RNA may not indicate the presence of infectious virus or that SARS-CoV-2 is the causative agent for clinical symptoms. Negative results do not preclude SARS-CoV-2 infection and should not be used as the sole basis for patient management decisions. Negative results must be combined with clinical observations, patient history, and epidemiological information. False negative results may also occur if amplification inhibitors are present in the specimen or if inadequate numbers of organisms are present in the specimen. Optimum specimen types and timing for peak viral levels during infections caused by SARS-CoV-2 have not been fully determined. Collection of multiple specimens (types and time points) from the same patient may be necessary to detect the virus. The test was validated for use with upper respiratory specimens obtained via nasopharyngeal or oropharyngeal swabs in VTM, UTM, M4, M5, M6, saline, and MTM media. The performance of this test has not been established for other specimens. Specimens collected using other FDA recommended Specimen Collection Materials listed in the FDA COVID-19 [employer] communication (September 20, 2019) are processed with the caveat that they were not all validated for use with this test and the result must be interpreted in this context. Furthermore, a false negative results may occur if a specimen is improperly collected, transported or handled. If the virus mutates in the RT-PCR target region, SARS-CoV-2 may not be detected or may be detected less predictably. Inhibitors or other types of interference may produce a false negative result. An interference study evaluating the effect of common cold medications was not performed. This test is not FDA-cleared but its performance characteristics were established by our CLIA-certified, CAP-accredited, high complexity laboratory in accordance with CLIA regulations, [employer] (CAP) guidelines (Sep 13, 2019), and FDA guidance (Aug 25, 2019). This test is only for use under the Food and Drug Administration's Emergency Use Authorization. Swab ENTIRE NASOPHARYNX / Unknown 01/17/2020 13:17 EDT 01/17/2020 21:27 EDT Provider Outr Resulting Lab MICROBIOLOGY - GENERAL ORDERABLES [facility] [place] * COVID-19 TESTING (01/17/2020 13:17 EDT) COVID-19 rt-PCR Result NEGATIVE Negative 01/19/2020 3:13 EDT [facility] Comment: 2019-novel Coronavirus (2019-nCoV) not detected by the qRT-PCR assay. Consider testing for other respiratory viruses or re-collecting for 2019-nCoV testing. Note: Optimum timing for peak viral levels during infections caused by 2019-nCoV have not been determined. Collection of multiple specimens from the same patient may be necessary to detect the virus. Limitations Positive results are indicative of active infection with SARS-CoV-2 but do not rule out bacterial infection or co-infection with other viruses. The agent detected may not be the definite cause of disease. In addition, detection of viral RNA may not indicate the presence of infectious virus or that SARS-CoV-2 is the causative agent for clinical symptoms. Negative results do not preclude SARS-CoV-2 infection and should not be used as the sole basis for patient management decisions. Negative results must be combined with clinical observations, patient history, and epidemiological information. False negative results may also occur if amplification inhibitors are present in the specimen or if inadequate numbers of organisms are present in the specimen. Optimum specimen types and timing for peak viral levels during infections caused by SARS-CoV-2 have not been fully determined. Collection of multiple specimens (types and time points) from the same patient may be necessary to detect the virus. The test was validated for use with upper respiratory specimens obtained via nasopharyngeal or oropharyngeal swabs in VTM, UTM, M4, M5, M6, saline, and MTM media. The performance of this test has not been established for other specimens. Specimens collected using other FDA recommended Specimen Collection Materials listed in the FDA COVID-19 [employer] communication (September 20, 2019) are processed with the caveat that they were not all validated for use with this test and the result must be interpreted in this context. Furthermore, a false negative results may occur if a specimen is improperly collected, transported or handled. If the virus mutates in the RT-PCR target region, SARS-CoV-2 may not be detected or may be detected less predictably. Inhibitors or other types of interference may produce a false negative result. An interference study evaluating the effect of common cold medications was not performed. This test is not FDA-cleared but its performance characteristics were established by our CLIA-certified, CAP-accredited, high complexity laboratory in accordance with CLIA regulations, [employer] [place] (CAP) guidelines (Sep 13, 2019), and FDA guidance (Aug 25, 2019). This test is only for use under the Food and Drug Administration's Emergency Use Authorization. Performing Lab [facility] [employer] [place] 01/19/2020 3:13 EDT [facility] Swab 01/17/2020 13:1 7 EDT 01/17/2020 21:27 EDT Provider Outr Resulting Lab MICROBIOLOGY - GENERAL ORDERABLES [facility] [address] [place] [address] [facility] [place], [place] documented in this encounter Visit Diagnoses Not on filedocumented in this encounter Care Teams Special Education Paraprofessional Relationship Specialty Start Date End Date None, Provider PCP - General 06/09/23 documented as of this encounter
--- OUTSIDE RECORDS SUMMARY | 2024-01-20 00:10 | XMS_ITS | Encounter Summary ---
Author Organization [facility] Address [address] [place] [address] Care Team Providers Care Roof Slater Name Role Phone None, Provider Primary Care Provider Unavailabl e Reason for Visit * Reason Comments Fall Pt states he had a w ork injury 2 months ago and has had on going issues related to the injury. Pt c/o neck pain radiating to left shoulder. Pt has had numbness in left hand and torso. Pt with balance issues and problem with bowel movements Encounter Details Date Type Department Care Team (Late st Contact Info) Description 06/09/2023 14:16 EST - 06/09/2023 23:[address] [facility] Emergency Department [address] [place] [address] Cervical spinal cord compression (HCC-CMS) (Primary Dx) Discharge Disposition: Short Term Hospital Social History Tobacco Use Types Packs/Day Years [...] Sign Reading Time Taken Comments Blood Pressure 147/83 06/09/2023 2338 EST Pulse 87 06/09/2023 2338 EST Temperature 36.7 ??C (98.1 ??F) 06/09/2023 1855 EST Respiratory Rate 18 06/09/2023 2338 EST Oxygen Saturation 96% 06/09/2023 2338 EST Inhaled Oxygen Concentration - - Weight 109.7 kg (241 lb 12.8 oz) 06/09/2023 1412 EST Height 188 cm (6' 2) 06/09/2023 1412 EST Body Mass Index 31.05 06/09/2023 1412 EST documented in this encounter Discharge Instructions * Discharge Instructions* Honorio Salcedo PA-C - 06/09/2023 23:34 EST You are seen today for numbness and tingling to your upper extremities as well as your lower extremities. The MRI of your cervical spine shows a cord compression at level C6 and C7. Discussed these findings with the neurosurgery team at [facility] and they recommend that we transfer you up to their facility to discuss intervention to ameliorate your symptoms. * Attachments The following attachments cannot be sent through Care Everywhere. * Spinal Cord Injury: Paraplegic (Maori) documented in this encounter Medications at Time [...] 06/11/2023 06/25/2023 documented as of this encounter Discharge Disposition Disposition Code Departure Means Destination Comment s [facility] Term [facility] Hospital (Acute Care Facility) documented in this encounter ED Notes * Cheryl Hilton RN - 06/09/20232022 EST Pt ambulated to BR. Denies claustrophobia. Ambulated to BR with steady gait. * Cheryl Hilton RN - 06/09/2023 1855 EST Pt resting on stretcher, awake, in no apparent distress. Denies any current needs. Awaiting MRI. Call walker within reach. * Nikole Whatley RN - 06/09/2023 1610 EST Pt was notified that MRI won't happen until 8. He wlaked to the br. He was offered food and drink and declines. * Honorio Salcedo PA-C - 06/09/2023 1347 EST Emergency Department Visit Medical Decision Making 33-year-old male presenting to the emergency department with 1-1/2 months of bilateral hand numbness and tingling specifically along the fourth, fifth digits and abdominal numbness from the umbilicusdown through his lower extremities. He endorses change in bowel and bladder habits. Endorses difficulty starting his stream of urine and has had infrequent bowel movements compared to his normal daily BM. He endorses difficulty ambulating. He denies any fevers, chills, nausea, vomiting. He does endorse some neck pain. He reports a fall that occurred prior to the onset of his symptoms. Additionally, he experienced a fall today where he slipped on ice and fell onto his right side jolting his neckin the lateral direction. He reports that this exacerbated his symptoms today and encouraged him tocome to the emergency department. On examination patient is well-appearing and does not appear to be in distress. He has normal strength to the upper extremities. He has frequent muscle spasms/fasciculations primarily to the right lower extremity throughout the exam. He has no appreciable decreased strength to the lower extremities. Gait is abnormal with a cogwheeling noted. No foot drop appreciated. Case was discussed with Dr. Wong of neurology. Recommendation was to obtain imaging of the cervical, thoracic and lumbar spine. Patient was obligated to wait several hours prior to the start and completion of the imaging. Both thoracic and lumbar spines are unremarkable however his cervical spine shows severe spondylosis at C6-C7 with severe focal central canal stenosis. Focal compression of the cord with mild edema and myelomalacia at the C6-C7. Case was discussed with the Dr. Lai of neurosurgery. Recommendation was to transfer patient to [facility] for impending decompression of the cervical spinal cord. Spoke with Dr. Brown of the emergency department and she accepted the ED to ED transfer. Relevant Data as of 06/09/232240 [facility] Jun 09, [id number] IMPRESSION Severe spondylosis at C6-C7 with severe focal central canal stenosis. Focal compression of the cord with mild edema or myelomalacia at this level. [AH] 2241 IMPRESSION No focal pathology in the thoracic spine. [AH] 2241 IMPRESSION 1. No acute findings. 2. Mild lumbar spondylosis without significant stenosis. [AH] Relevant Data User Index [AH] Honorio Salcedo PA-C Medical Decision Making Amount and/or Complexity of Data Reviewed Radiology: ordered. Final diagnoses: Cervical spinal cord compression (HCC-CMS) Disposition: No disposition on file Chief complaint: Numbness and tingling bilateral hands, abdomen, groin, bilateral lower extremities YASMINE Douglas is a 33 y.o. male with no significant past medical history who presents to the ED for complaints of bilateral hand numbness and tingling primarily in the fourth and fifth digits, numbness and tingling to his abdomen including groin, bilateral lower extremities. He states that he hasnoticed some tremors in his lower extremities. He also has noticed abnormal functioning of his bowel and bladder. He states that the symptoms have been ongoing for the past 1 and half to 2 months which were preceded by a fall at work. He states the symptoms have not improved nor have they worsened over the past 1-1/2 to 2 months. He denies any pain associated with his symptoms. He denies any weakness to his lower extremities. He does endorse a fall again today where he slipped on ice and landedon his right side exacerbating his symptoms. History was provided by: Patient Records reviewed include:none Patient's pertinent PMH, FH, SH were reviewed and edited as necessary. Nursing notes reviewed. A medical screening exam was performed. Physical Exam BP 113/76 Temp 36.7 ??C (98.1 ??F) (Oral) Resp 16 Ht 188 cm (74) Wt (!) 109.7 kg (241 lb 12.8 oz) SpO2 96% BMI 31.05 kg/m?? Physical Exam Vitals and nursing note reviewed. Constitutional: General: He is not in acute distress. Appearance: Normal appearance. HENT: Head: Normocephalic and atraumatic. Right Ear: External ear normal. Left Ear: External ear normal. Nose: Nose normal. Mouth/Throat: Mouth: Mucous membranes are moist. Eyes: Extraocular Movements: Extraocular movements intact. Conjunctiva/sclera: Conjunctivae normal. Pupils: Pupils are equal, round, and reactive to light. Cardiovascular: Rate and Rhythm: Regular rhythm. Tachycardia present. Pulses: Normal pulses. Pulmonary: Effort: Pulmonary effort is normal. Abdominal: General: Bowel sounds are normal. Palpations: Abdomen is soft. There is no mass. Tenderness: There is no abdominal tenderness. Musculoskeletal: General: No swelling or deformity. Normal range of motion. Cervical back: Normal range of motion and neck supple. Skin: General: Skin is warm and dry. Neurological: General: No focal deficit present. Mental Status: He is alert and oriented to person, place, and time. Gait: Gait abnormal (Hitched gait, unsteady, reminiscent of cogwheeling). Comments: Bilateral lower extremity muscle spasms/tremors Psychiatric: Mood and Affect: Mood normal. Behavior: Behavior normal. Procedures Procedures documented in this encounter Plan of Treatment Upcoming Encounters Date Type Department Care Team (Late st Contact Info) Description 06/04/2024 12:00 EST Office Visit [facility] Spine Program - [address] [place] [address] Rodney Lai MD [address] [place] [phone] documented as of this encounter Procedures Procedure Name Priority Date/Time Associated Diagnosis Comments MR LUMBAR SPINE WO CONTRAST STAT 06/09/2023 21:44 EST MR THORACIC SPINE WO CONTRAST STAT 06/09/2023 21:42 EST MR CERVICAL SPINE WO CONTAST STAT 06/09/2023 21:37 EST documented in this encounter Results * MR LUMBAR SPINE WO CONTRAST (06/09/2023 21:44 EST) Anatomical Region Laterality Modality Spine Magnetic Resonan ce 06/09/2023 21:3 4 EST Addenda Addendum by Kd López MD on 06/09/2023 22:28 EST Findings were discussed with HONORIO SALCEDO at 06/09/2023 22:28 EST. THIS DOCUMENT HAS BEEN ELECTRONICALLY SIGNED BY KD LÓPEZ MD FOR ANY QUESTIONS OR CONCERNS REGARDING THIS REPORT PLEASE CALL [facility] AT [phone] Impressions 06/09/2023 22:22 EST 1. ?? No acute findings. 2. ?? Mild lumbar spondylosis without significant stenosis. THIS DOCUMENT HAS BEEN ELECTRONICALLY SIGNED BY KD LÓPEZ MD FOR ANY QUESTIONS OR CONCERNS REGARDING THIS REPORT PLEASE CALL [facility] AT [phone] Narrative 06/09/2023 22:22 EST PROCEDURE INFORMATION: Exam: MR Lumbar Spine Without Contrast Exam date and time: 06/09/2023 21:34 Age: 33 years old Clinical indication: Other: Numbness and tingling ble, groin, abnormal gait TECHNIQUE: Imaging protocol: Magnetic resonance imaging of the lumbar spine without contrast. COMPARISON: MR C T L SPINE WO 06/09/2023 20:57 FINDINGS: Bones/joints: No acute fracture or listhesis in the lumbar spine. Normal signal in the bone marrow for age on noncontrast imaging. Small benign incidental hemangioma at L5. Spinal cord: Visualized cord, conus medullaris and cauda equina are unremarkable without compression. L1-L2: No significant disc bulge or herniation. No significant spinal canal stenosis. No significant neural foraminal narrowing. L2-L3: Minimal broad-based disc bulge without stenosis. Facet hypertrophy. L3-L4: No significant disc bulge or herniation. No significant spinal canal stenosis. No significant neural foraminal narrowing. L4-L5: Mild disc desiccation and minimal broad-based disc bulge. Trace posterior annular fissure. No significant stenosis. Facet hypertrophy. L5-S1: Disc desiccation and mild broad-based disc bulge. Trace posterior annular fissure. No significant stenosis. Facet hypertrophy. Soft tissues: Unremarkable. Procedure Note Kd López MD - 06/09/2023 PROCEDURE INFORMATION: Exam: MR Lumbar Spine Without Contrast Exam date and time: 06/09/2023 21:34 Age: 33 years old Clinical indication: Other: Numbness and tingling ble, groin, abnormal gait TECHNIQUE: Imaging protocol: Magnetic resonance imaging of the lumbar spine without contrast. COMPARISON: MR C T L SPINE WO 06/09/2023 20:57 FINDINGS: Bones/joints: No acute fracture or listhesis in the lumbar spine. Normal signal in the bone marrow for age on noncontrast imaging. Small benign incidental hemangioma at L5. Spinal cord: Visualized cord, conus medullaris and cauda equina are unremarkable without compression. L1-L2: No significant disc bulge or herniation. No significant spinal canal stenosis. No significant neural foraminal narrowing. L2-L3: Minimal broad-based disc bulge without stenosis. Facet hypertrophy. L3-L4: No significant disc bulge or herniation. No significant spinal canal stenosis. No significant neural foraminal narrowing. L4-L5: Mild disc desiccation and minimal broad-based disc bulge. Trace posterior annular fissure. No significant stenosis. Facet hypertrophy. L5-S1: Disc desiccation and mild broad-based disc bulge. Trace posterior annular fissure. No significant stenosis. Facet hypertrophy. Soft tissues: Unremarkable. IMPRESSION 1. No acute findings. 2. Mild lumbar spondylosis without significant stenosis. THIS DOCUMENT HAS BEEN ELECTRONICALLY SIGNED BY KD LÓPEZ MD FOR ANY QUESTIONS OR CONCERNS REGARDING THIS REPORT PLEASE CALL [facility] [phone] Honorio Salcedo PA-C IMG MRI ORDERABLES * MR THORACIC SPINE WO CONTRAST (06/09/2023 21:42 EST) Anatomical Region Laterality Modality Spine Magnetic Resonan ce 06/09/2023 20:5 7 EST Addenda Addendum by Kd López MD on 06/09/2023 22:28 EST Findings were discussed with HONORIO SALCEDO at 06/09/2023 22:28 EST. THIS DOCUMENT HAS BEEN ELECTRONICALLY SIGNED BY KD LÓPEZ MD FOR ANY QUESTIONS OR CONCERNS REGARDING THIS REPORT PLEASE CALL [facility] AT [phone] Impressions 06/09/2023 22:20 EST No focal pathology in the thoracic spine. THIS DOCUMENT HAS BEEN ELECTRONICALLY SIGNED BY KD LÓPEZ MD FOR ANY QUESTIONS OR CONCERNS REGARDING THIS REPORT PLEASE CALL [facility] AT [phone] Narrative 06/09/2023 22:20 EST PROCEDURE INFORMATION: Exam: MR Thoracic Spine Without Contrast Exam date and time: 06/09/2023 20:57 Age: 33 years old Clinical indication: Other: Numbness and tingling ble, groin, abnormal gait TECHNIQUE: Imaging protocol: Magnetic resonance imaging of the thoracic spine without contrast. COMPARISON: MR C T L SPINE WO 06/09/2023 20:30 FINDINGS: Bones/joints: No acute fracture or listhesis in the thoracic spine. Signal in the bone marrow is within normal limits for age on noncontrast imaging. Abnormal signal in the cervical cord extending to the C7 level, please see cervical spine MRI. Relates to distal cervical spondylosis. Thoracic disc spaces are within normal limits. No significant stenosis. Spinal cord: No focal abnormal signal in the thoracic cord. ??No cord compression. ??No significant stenosis. Soft tissues: Unremarkable. Procedure Note Kd López MD - 06/09/2023 PROCEDURE INFORMATION: Exam: MR Thoracic Spine Without Contrast Exam date and time: 06/09/2023 20:57 Age: 33 years old Clinical indication: Other: Numbness and tingling ble, groin, abnormal gait TECHNIQUE: Imaging protocol: Magnetic resonance imaging of the thoracic spine without contrast. COMPARISON: MR C T L SPINE WO 06/09/2023 20:30 FINDINGS: Bones/joints: No acute fracture or listhesis in the thoracic spine. Signal in the bone marrow is within normal limits for age on noncontrast imaging. Abnormal signal in the cervical cord extending to the C7 level, please see cervical spine MRI. Relates to distal cervical spondylosis. Thoracic disc spaces are within normal limits. No significant stenosis. Spinal cord: No focal abnormal signal in the thoracic cord. No cord compression. No significant stenosis. Soft tissues: Unremarkable. IMPRESSION No focal pathology in the thoracic spine. THIS DOCUMENT HAS BEEN ELECTRONICALLY SIGNED BY KD LÓPEZ MD FOR ANY QUESTIONS OR CONCERNS REGARDING THIS REPORT PLEASE CALL [facility] [phone] Authorizing Provider Result Ladi Salcedo PA-C IMMarciano MRI ORDERABLES * MR CERVICAL SPINE WO CONTRAST (06/09/2023 21:37 EST) Anatomical Region Laterality Modality Spine Magnetic Resonan ce 06/09/2023 20:3 0 EST Addenda Addendum by Kd López MD on 06/09/2023 22:28 EST This report contains findings that may be critical to patient care. The pertinent findings were communicated via telephone with HONORIO SALCEDO at 22:28 EST on 06/09/2023. The findings were acknowledged and understood. THIS DOCUMENT HAS BEEN ELECTRONICALLY SIGNED BY KD LÓPEZ MD FOR ANY QUESTIONS OR CONCERNS REGARDING THIS REPORT PLEASE CALL [facility] AT [phone] Impressions 06/09/2023 22:19 EST Severe spondylosis at C6-C7 with severe focal central canal stenosis. Focal compression of the cord with mild edema or myelomalacia at this level. THIS DOCUMENT HAS BEEN ELECTRONICALLY SIGNED BY KD LÓPEZ MD FOR ANY QUESTIONS OR CONCERNS REGARDING THIS REPORT PLEASE CALL [facility] AT [phone] Narrative 06/09/2023 22:19 EST PROCEDURE INFORMATION: Exam: MR Cervical Spine Without Contrast Exam date and time: 06/09/2023 20:30 Age: 33 years old Clinical indication: Other: Numbness and tingling ble, groin, abnormal gait TECHNIQUE: Imaging protocol: Magnetic resonance imaging of the cervical spine without contrast. COMPARISON: No relevant prior studies available. FINDINGS: Bones/joints: Reversal of the normal cervical lordosis. No acute fracture or subluxation. Signal in cervical spine mild marrow is within normal limits on noncontrast imaging for age. Spinal cord: Focal abnormal signal in the cervical cord at C6-C7. C2-C3: No significant disc bulge or herniation. No severe spinal canal stenosis. No significant neural foraminal narrowing. C3-C4: Mild left neural foraminal stenosis due to uncovertebral hypertrophy. C4-C5: Mild left neural foraminal stenosis due to uncovertebral hypertrophy. C5-C6: Moderate posterior disc osteophyte complex effaces anterior thecal sac. No mechanical central canal stenosis. Mild bilateral neural foraminal stenosis. C6-C7: Large posterior disc osteophyte complex effaces thecal sac and causes focal severe central canal stenosis. Focal compression of the cord at this level. Severe narrowing right lateral recess and left lateral recess, mild bilateral neural foraminal stenosis. C7-T1: No significant disc bulge or herniation. No severe spinal canal stenosis. No significant neural foraminal narrowing. Soft tissues: Unremarkable. Vasculature: Expected flow voids in the vertebral arteries. Procedure Note Kd López MD - 06/09/2023 PROCEDURE INFORMATION: Exam: MR Cervical Spine Without Contrast Exam date and time: 06/09/2023 20:30 Age: 33 years old Clinical indication: Other: Numbness and tingling ble, groin, abnormal gait TECHNIQUE: Imaging protocol: Magnetic resonance imaging of the cervical spine without contrast. COMPARISON: No relevant prior studies available. FINDINGS: Bones/joints: Reversal of the normal cervical lordosis. No acute fracture or subluxation. Signal in cervical spine mild marrow is within normal limits on noncontrast imaging for age. Spinal cord: Focal abnormal signal in the cervical cord at C6-C7. C2-C3: No significant disc bulge or herniation. No severe spinal canal stenosis. No significant neural foraminal narrowing. C3-C4: Mild left neural foraminal stenosis due to uncovertebral hypertrophy. C4-C5: Mild left neural foraminal stenosis due to uncovertebral hypertrophy. C5-C6: Moderate posterior disc osteophyte complex effaces anterior thecal sac. No mechanical central canal stenosis. Mild bilateral neural foraminal stenosis. C6-C7: Large posterior disc osteophyte complex effaces thecal sac and causes focal severe central canal stenosis. Focal compression of the cord at this level. Severe narrowing right lateral recess and left lateral recess, mild bilateral neural foraminal stenosis. C7-T1: No significant disc bulge or herniation. No severe spinal canal stenosis. No significant neural foraminal narrowing. Soft tissues: Unremarkable. Vasculature: Expected flow voids in the vertebral arteries. IMPRESSION Severe spondylosis at C6-C7 with severe focal central canal stenosis. Focal compression of the cord with mild edema or myelomalacia at this level. THIS DOCUMENT HAS BEEN ELECTRONICALLY SIGNED BY KD LÓPEZ MD FOR ANY QUESTIONS OR CONCERNS REGARDING THIS REPORT PLEASE CALL [facility] [phone] Honorio Salcedo PA-C IMG MRI ORDERABLES documented in this encounter Visit Diagnoses Diagnosis Cervical spinal cord compression (HCC-CMS)- Primary Unspecified disease of spinal cord documented in this encounter Orders Transfer Count Last Ordered Date First Orde red Date CONSULT RTC (TRANSFER/CONSUL T TO OTHER FACILITY) 1 06/09/2023 Case Request Count Last Ordered Date First Orde red Date CASE REQUEST OPERATING ROOM 1 06/09/2023 documented in this encounter Care Teams Roof Slater Relationship Specialty Start Date End Date None, Provider PCP - General 06/09/23 documented as of this encounter
--- OUTSIDE RECORDS SUMMARY | 2024-01-20 00:10 | XMS_ITS | Encounter Summary ---
Author Organization [facility] Address [address] [place] [address] Care Team Providers Care Business Line Manager Name Role Phone None, Provider Primary Care Provider Ricardo levy Encounter Details Date Type Department Care Team (Latest Contact Info) Description 06/09/2023 Travel Social History Tobacco Use Types Packs/Day Years [...] [facility] Spine Program - [place] [address] [place] [address] Rodney Lai MD [address] [place] [phone] documented as of this encounter Visit Diagnoses Not on filedocumented in this encounter Care Teams Business Line Manager Relationship Specialty Start Date End Date None, Provider PCP - General 06/09/23 documented as of this encounter
--- OUTSIDE RECORDS SUMMARY | 2024-01-20 00:10 | XMS_ITS | Encounter Summary ---
Author Organization [facility] Address [address] [place] [address] Care Team Providers Care Printing Bindery Assistant Name Role Phone None, Provider Primary Care Provider Ricardo e Encounter Details Date Type Department Care Team (Latest Contact Info) Description 06/10/2023 Travel Social History Tobacco Use Types Packs/Day [...] Info) Description 06/04/2024 12:[address] [facility] Spine Program - [address] [address] Rodney Lai MD [address] [place] [phone] documented as of this encounter Visit Diagnoses Not on filedocumented in this encounter Care Teams Printing Bindery Assistant Relationship Specialty Start Date End Date None, Provider PCP - General 06/09/23 documented as of this encounter
--- OUTSIDE RECORDS SUMMARY | 2024-01-20 00:10 | XMS_ITS | Encounter Summary ---
Author Organization [facility] Address [address] [place] [address] Care Team Providers Care Bookkeeping Clerk Name Role Phone None, Provider Primary Care Provider Unavailabl e Reason for Visit * Reason Comments Neck Pain Ambulatory to triage with family as transfer form [facility]. Fall 1 month ago and had intermittent bilateral arm numbness and saddle anesthesia. Had fall today after slipping on ice which increased pain and symptoms. Walked with steady gait. 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 06/10/23 1610 Posted [facility] OR [facility] Orthopedics Inpatient E - Less than 12 hours Panel 1 Procedure LRB Anes Op Region Wound Class Comments C6/7 Anterior cervical disce homero and fusion N/A General Spine Cervical Class I/ Clean Surgeon Surgeon Role Service Panel Rodney Lai MD Primary Orthopedics 1 Brett Acosta MD Resident - Assisting Orthopedics 1 Special Needs Nuvasive neruomonitoring documented in this encounter Social History Tobacco [...] Sign Reading Time Taken Comments Blood Pressure 146/83 06/10/2023 1845 EST Pulse 71 06/10/2023 1322 EST Temperature 37.3 ??C (99.1 ??F) 06/10/2023 1830 EST Respiratory Rate 8 06/10/2023 1845 EST Oxygen Saturation 98% 06/10/2023 1845 EST Inhaled Oxygen Concentration - - Weight [...] History Administered Date(s) Administered Covid-19 Ad26 Vaccine (Orthocon COVID-19) PF 0.5 ml IM (18 yrs+) [...] Therapy Surgery Aftercare with Miriam Smith, PT [facility] Rehabilitation Therapy [facility] (--) [address] [place] [address] Jul 26, 2023 9:00 OFFICE VISIT 60 with Miriam Smith, PT [facility] Rehabilitation Therapy - [facility] (--) [address] [place] [address] Jul 26, 2023 10:00 (Arrive by 9:45) Post Op Visit with Rodney Lai MD [facility] Spine Program [facility] (--) [address] [place], [place] [address]janel Leggett [place] [phone] Sep 06, 2023 12:00 (Arrive by 11:45) Office Visit with Rodney Lai MD [facility] Spine Program [facility] (--) [facility] Lisbeth Leggett [place] [phone] Follow-up appointments and procedures Appointments See Rodney Lai MD. The [facility] is located at [address] [place] [address]. Call [phone] if no appointment is scheduled. Authorizing Provider: Stoney Copeland MD Call your doctor if you experience any of the following symptoms: - Numbness in your extremities - Redness or drainage from your incision - Odor from your incision - Pain unrelieved by medication - Temperature greater than 101 degrees Fahrenheit Authorizing Provider: Stoney Copeland MD Amb Consult/Follow Up Orthopedics - [facility] Reason for Request: ACDF scheduled 06/10/23 [...] to follow-up, please call the office at [phone]. You should have awound check and physical therapy visit scheduled at ~2-3 weeks post-operatively, and a visit with your surgeon at ~6 weeks post-operatively. Please call the office if you have a fever>101.5 degrees Fahrenheit, drainage from your wound, or have any questions. [phone] documented in this encounter Medications at Time [...] Means Destination Comment s Home or Self Custodial documented in this encounter Progress Notes * Melissa Chacon, PT - 06/11/2023 1614 EST [facility] Rehabilitation Therapy Acute Therapy [facility] Physical Therapy Contact Note Date [...] 14:14 * Yoel Valerio MD - 06/11/2023 1921 EST Orthopaedic Progress Note PROBLEM: Cervical myelopathy [...] ext (C7, C8) Wrist flex (C8, T1) Industrial Automation Engineer (T1) Right 5/5 5/5 5/5 5/5 5/5 [...] Add LDA for any identified wounds Add [place] image for any suspected PI or non surgical wounds Order wound consult if suspected PI identified If Lacho is < or = to 16, initiate Pressure Injury Prevention Bundle ([id number]). 06/10/2023 20:03 * Brett Acosta MD - [...] strength BLE in all motor groups A/P: Maria L Douglas is a 33 y.o. male s/p [...] Add LDA for any identified wounds Add [place] image for any suspected PI or non surgical wounds Order wound consult if suspected PI identified If Lacho is < or = to 16, initiate Pressure Injury Prevention Bundle ([id number]). 06/10/2023 6:24 documented in this encounter H&P [...] medical history presents as a transfer from [place] with concerns for cervical myelopathy. He states that approximately 1-1/2 months ago he was coming down the stairs and tripped falling onto his back, had worsening neck pain and had p aresthesias that developed in his ulnar 2 digits bilaterally as well as heaviness and numbness in his thighs and trunk. He presented to [place] after another fall yesterday also when he [...] 3 months, denies drug use.He lives in [facility] he has a daughter and fianc?? that [...] file. Charted Social History: Patient lives in [address] [place] [address]. Occupational History Not on file he reports [...] Flex (C8, T1) 5/5 Interrosei (T1) 5/5 Industrial Automation Engineer (T1) 5/5 Deltoid (C5) 5/5 Biceps (C5, 6) 5/5 Triceps (C7) 5/5 Wrist/Finger Ext (C7, 8) 5/5 Wrist/Finger Flex (C8, T1) 5/5 Interrosei (T1) 5/5 Industrial Automation Engineer (T1) 5/5 Brachioradialis (C5) 1+, Bicep (C5) [...] the swimmer's view. Assessment: Maria L Douglas [id number] 1990 Maria L Douglas is a 33 [...] Ming BEDOLLA MD Orthopedic Surgery PGY2 Pager: [phone] Pre Op Checklist Pre Op Checklist [x] [...] and fusion Operative Note Date: 06/10/2023 Location: [facility] OR Name: Maria L Douglas, : 1990, SURGEION: Rodney Lai INFECTION CONTROL RN: Derek Acosta PREOPERATIVE DIAGNOSES: 1. Herniated cervical disc with cervical myelopathy POSTOPERATIVE DIAGNOSES: Same as preop PROCEDURES: 1. Anterior cervical discectomy and arthrodesis C6-7 for decompression of spinal cord (61097) 2. Insertion of anterior instrumentation, C6-7 (33668) 3. Insertion of allograft, structural (25438) INSTRUMENTATION: Nuvasive ACP ANESTHESIA: General endotracheal. ESTIMATED [...] entirety of the procedure in compliance with [facility] regulations. Rodney Lai MD documented in this encounter ED Notes * Maty Sen, TEE - 06/10/2023 0356 EST Pt PVR bladder scan <20. Pt states he does not have to urinate at the moment * Lizzie Ashton, TEE - 06/10/2023 0040 EST Placed pt in [place]-J collar per NIA Lynn. NIA Lynn at bedside evaluating pt during c-collar application. * Cece Lynn PA-C - 06/10/2023 0026 EST Images from the original note were not included. [facility] Emergency Department Note Emergency Department [...] ED Course Relevant Data as of 06/10/23 041TueJun 10, 2023 0132 I spoke with orthopedics [...] Data Reviewed: notes. Details: Reviewed notes from [facility] prior to arrival Labs: Decision-making details documented [...] to triage with family as transfer form [facility]. Fall 1 month ago and had intermittent [...] the BETTY's note. I evaluated this patient [id number] and provided a substantive portion of the [...] worsened after a couple falls, transferred from OSH due to C spine compression w/ myelopathy. Seen by ortho. 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 [...] Goal: Care Plan Documentation Flowsheets (Taken 06/10/2023 0932) Area of Focus: Pain/ Comfort Goal This [...] - 06/10/2023 1745 EST Date: 06/10/2023 Location: [facility] OR Name: Maria L Douglas, : 1990, Diagnosis Pre-Op Diagnosis Codes: [...] PLATE ACP 1.9H 24MM 1 LEVEL - [id number] Implanted [employer] Implanted [id number] Screw Implant SCREW ACP 3.5 X 17MM SELF-DRILL FIXED - [id number] Implanted Screw Implant SCREW ACP 4.0 X 17MM SELF TAP FIXED - [id number] Implanted Staff: Manager Mall: Otilia Mcbride RN Registered Nurse Yacht Captain: Shelly Moreno RN Relief Manager Mall: Junito Love RN Relief Scrub: Addi Scherer Scrub Person: Yoel Blackburn Patient Clinical Rehabilitation Aide: Shyla Gonzalez Indications: Maria L Douglas is [...] Type of housing (single family, condo, apartment, senior care, single room occupancy, [facility] funded hotel room, group nursing home) - [facility] Who does the patient live with? alone Does the patient have access to their own bedroom/bathroom/kitchen - or is it shared with others? own Name of housing complex (ex [facility], [facility], etc)- n/a Housing Authority/Managing Organization - n/a Community Care Providers (case therapist, [facility] nurse, etc) name and contact information- n/a [...] to be discharged to: (P) home CULTURAL, MORMONISM and/or LANGUAGE factors affecting health care/discharge planning: [...] home Per chart review, Pt lives in [place], [place]. His daughter and spouse live in [place]. Since fall 1 1/2 yrs ago he has experienced various paretheses (hands, LEs). Was transferred to [facility]. Insurance listed as Workers Comp. CM to meet Pt post-op for DC planning pending clinical course and team recommendations. [facility] [id number] *[phone] 06/10/2023 15:02 documented in this encounter Plan of Treatment Upcoming Encounters Date Type Department Care Team (Late st Contact Info) Description 06/04/2024 12:00 EST Office Visit [facility] Spine Program - [address] [place], [place] [id number] Rodney Lai MD [address] [place] [phone] Scheduled Referrals Name Type Priority Associated Diagnoses Order Schedule AMB CONS/FOLLOW UP ORTHOPEDICS - [facility] Outpatient Referral Routine/Next Available 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HCC-[facility]) Expected: 07/25/2023 (Approximate), Expires: 06/10/2024 PROVIDER FOLLOW-UP [...] soft tissues of the right neck postoperatively. [id number] Narrative 06/11/2023 9:38 EST EXAM/TECHNIQUE: 06/11/2023 7:55 [...] the soft tissues of the right neckpostoperatively. [id number] Yoel Valerio MD IMG DIAGNOSTIC IMAGI NG ORDERABLES * (ABNORMAL) COMPLETE BLOOD COUNT AND DIFFERENTIAL (06/11/2023 8:56 EST) WBC 10.04 4.00 - 10.40 K/cmm 06/11/2023 9:18 EST [facility] RBC 4.90 4.36 - 5.78 M/cmm 06/11/2023 9:18 EST [facility] Hemoglobin 14.2 13.8 - 17.3 g/dL 06/11/2023 9:18 [facility] HCT 41.8 39.5 - 50.2 % 06/11/2023 9:18 [facility] MCV 85 81 - 95 fL 06/11/2023 9:18 [facility] MCH 29.0 27.6 - 33.0 pg 06/11/2023 9:18 [facility] MCHC 34.0 32.8 - 36.4 g/dL 06/11/2023 9:18 [facility] RDW-CV 12.6 <14.2 % 06/11/2023 9:18 [facility] RDW-SD 39.1 <46.0 fl 06/11/2023 9:18 [facility] PLT 254 141 - 377 K/cmm 06/11/2023 9:18 [facility] MPV 10.1 9.5 - 12.7 fL 06/11/2023 9:18 [facility] % Neutrophils 61.9 % 06/11/2023 9:18 [facility] % Lymphocytes 20.9 % 06/11/2023 9:18 [facility] % Monocytes 11.0 % 06/11/2023 9:18 [facility] % Eosinophils 4.3 % 06/11/2023 9:18 [facility] % Basophils 1.0 % 06/11/2023 9:18 [facility] % Immature Grans 0.9 % 06/11/20 23 9:18 [facility] Absolute Neutrophils 6.22 2.20 - 8.85 K/cmm 06/11/2023 9:18 [facility] Absolute Lymphocytes 2.10 1.09 - 3.30 K/cmm 06/11/2023 9:18 [facility] Absolute Monocytes 1.10(H) 0.10 - 0.80 K/cmm 06/11/2023 9:18 [facility] Absolute Eosinophils 0.43 0.03 - 0.61 K/cmm 06/11/2023 9:18 [facility] ABS Basophils 0.10 0.01 - 0.11 K/cmm 06/11/2023 9:18 [facility] Absolute Immature Grans 0.09(H) 0.00 - 0.06 K/cmm 06/11/2023 9:18 [facility] Type of Differential: Auto 06/11/2023 9:18 [facility] Blood VENOUS BLOOD / Unknown Venipuncture / Unknown 06/11/2023 8:56 EST 06/11/2023 9:08 EST Fahad Bedolla MD PACKAGES & DNA PROBE ORDERABLES Performing Organization Address City/[facility] Co de Phone Number [facility] [address] [place] [address] * ELECTROLYTES (06/11/2023 8:56 EST) Sodium 138 136 - 145 mmol/L 06/11/2023 9:18 [facility] Potassium 4.6 3.5 - 5.0 mmol/L 06/11/2023 9:18 [facility] Chloride 104 96 - 110 mmol/L 06/11/2023 9:18 [facility] CO2 Total 25 22 - 32 mmol/L 06/11/2023 9:18 [facility] Anion Gap 9 5 - 14 mmol/L 06/11/2023 9:18 [facility] Blood VENOUS BLOOD / Unknown Venipuncture / Unknown 06/11/2023 8:56 EST 06/11/2023 9:07 EST Fahad Bedolla MD CHEMISTRY & BLOOD GA S ORDERABLES Performing Organization Address [facility] Co de Phone Number [facility] [address] [place] [address] * CREATININE (06/11/2023 8:56 EST) Creatinine 1.20 0.66 - 1.25 mg/dL 06/11/2023 9:18 [facility] eGFR 83 >60 mL/min/1.73 m2 06/11/2023 9:18 EST [facility] Blood VENOUS BLOOD / Unknown Venipuncture / Unknown 06/11/2023 8:56 EST 06/11/2023 9:07 EST Fahad Bedolla MD CHEMISTRY & BLOOD GA S ORDERABLES Performing Organization Address [facility] Co de Phone Number [facility] [address] [place] [address] * BUN (06/11/2023 8:56 EST) BUN 12 10 - 26 mg/dL 06/11/2023 9:18 EST [facility] Blood VENOUS BLOOD / Unknown Venipuncture / Unknown 06/11/2023 8:56 EST 06/11/2023 9:07 EST Fahad Bedolla MD CHEMISTRY & BLOOD GA S ORDERABLES Performing Organization Address [facility] de Phone Number [facility] [address] [place] [address] * XR CERVICAL SPINE 2-3 VIEWS (06/10/2023 19:20 EST) Anatomical Region Laterality Modality Radio Fluoroscop y 06/10/2023 19:4 6 EST Impressions 06/10/2023 19:46 EST Findings/ Impression: Intraoperative radiographs show anterior discectomy and fusion at C6-7 level. [id number] Narrative 06/10/2023 19:46 EST XR CERVICAL SPINE 2-3 VIEWS ??06/10/2023 2:15 PM Clinical History/Comments: Cervical myelopathy (HCC-CMS) C6-7 ??ACDF. Check level. Please call [phone]. *done in [place]*;G95.9:Cervical myelopathy (HCC-CMS) Comparison: CT cervical spine 06/10/2023 Technique: Intraoperative AP and lateral radiographs of the lower cervical spine. Procedure Note Brett Tineo MD - 06/10/2023 XR CERVICAL SPINE 2-3 VIEWS 06/10/2023 2:15 PM Clinical History/Comments: Cervical myelopathy (HCC-CMS) C6-7 ACDF. Check level. Please call [phone].*done in [place]*;G95.9:Cervical myelopathy ([facility]) Comparison: CT cervical spine 06/10/2023 Technique: Intraoperative AP and lateral radiographs of the lower cervicalspine. IMPRESSION Findings/ Impression: Intraoperative radiographs show anterior discectomy and fusion at C6-7level. [id number] Rodney Lai MD IMG DIAGNOSTIC IMAG ING ORDERABLES * FL C-ARM 0-1 HOUR (06/10/2023 18:04 EST) Narrative 06/10/2023 18:06 EST This is a non-reportable exam. Rodney Lai MD IMG OTHER IMAGING O RDERABLES * (ABNORMAL) COMPLETE BLOOD COUNT AND DIFFERENTIAL (06/10/2023 6:27 EST) WBC 8.71 4.00 - 10.40 K/cmm 06/10/2023 7:18 [facility] RBC 4.81 4.36 - 5.78 M/cmm 06/10/2023 7:18 [facility] Hemoglobin 14.0 13.8 - 17.3 g/dL 06/10/2023 7:18 [facility] HCT 41.6 39.5 - 50.2 % 06/10/2023 7:18 [facility] MCV 87 81 - 95 fL 06/10/2023 7:18 [facility] MCH 29.1 27.6 - 33.0 pg 06/10/2023 7:18 [facility] MCHC 33.7 32.8 - 36.4 g/dL 06/10/2023 7:18 [facility] RDW-CV 12.5 <14.2 % 06/10/2023 7:18 [facility] RDW-SD 39.4 <46.0 fl 06/10/2023 7:18 [facility] PLT 253 141 - 377 K/cmm 06/10/2023 7:18 [facility] MPV 10.3 9.5 - 12.7 fL 06/10/2023 7:18 [facility] % Neutrophils 59.7 % 06/10/2023 7:18 [facility] % Lymphocytes 23.1 % 06/10/2023 7:18 [facility] % Monocytes 8.8 % 06/10/2023 7:18 [facility] % Eosinophils 5.6 % 06/10/2023 7:18 [facility] % Basophils 1.4 % 06/10/2023 7:18 [facility] % Immature Grans 1.4 % 06/10/20 7:18 [facility] Absolute Neutrophils 5.20 2.20 - 8.85 K/cmm 06/10/2023 7:18 [facility] Absolute Lymphocytes 2.01 1.09 - 3.30 K/cmm 06/10/2023 7:18 [facility] Absolute Monocytes 0.77 0.10 - 0.80 K/cmm 06/10/2023 7:18 [facility] Absolute Eosinophils 0.49 0.03 - 0.61 K/cmm 06/10/2023 7:18 [facility] ABS Basophils 0.12(H) 0.01 - 0.11 K/cmm 06/10/2023 7:18 [facility] Absolute Immature Grans 0.12(H) 0.00 - 0.06 K/cmm 06/10/2023 7:18 [facility] Type of Differential: Auto 06/10/2023 7:18 [facility] Blood VENOUS BLOOD / Unknown Venipuncture / Unknown 06/10/2023 6:27 EST 06/10/2023 7:06 EST Fahad Bedolla MD PACKAGES & DNA PROBE ORDERABLES [facility] [address] [place] [address] * ELECTROLYTES (06/10/2023 6:27 EST) Sodium 139 136 - 145 mmol/L 06/10/2023 7:35 [facility] Potassium 4.4 3.5 - 5.0 mmol/L 06/10/2023 7:35 [facility] Chloride 104 96 - 110 mmol/L 06/10/2023 7:35 [facility] CO2 Total 25 22 - 32 mmol/L 06/10/2023 7:35 [facility] Anion Gap 10 5 - 14 mmol/L 06/10/2023 7:35 [facility] Blood VENOUS BLOOD / Unknown Venipuncture / Unknown 06/10/2023 6:27 EST 06/10/2023 7:06 EST Fahad Bedolla MD CHEMISTRY & BLOOD GA S ORDERABLES Performing Organization Address [facility] de Phone Number [facility] [address] [place] [address] * CREATININE (06/10/2023 6:27 EST) Creatinine 1.19 0.66 - 1.25 mg/dL 06/10/2023 7:35 [facility] eGFR 84 >60 mL/min/1.73 m2 06/10/2023 7:35 [facility] Blood VENOUS BLOOD / Unknown Venipuncture / Unknown 06/10/2023 6:27 EST 06/10/2023 7:06 EST Fahad Bedolla MD CHEMISTRY & BLOOD GA S ORDERABLES Performing Organization Address City/[facility] Co de Phone Number [facility] [address] [place] [address] * (ABNORMAL) BUN (06/10/2023 6:27 EST) BUN 9(L) 10 - 26 mg/dL 06/10/2023 7:35 [facility] Blood VENOUS BLOOD / Unknown Venipuncture / Unknown 06/10/2023 6:27 EST 06/10/2023 7:06 EST Fahad Bedolla MD CHEMISTRY & BLOOD GA S ORDERABLES Performing Organization Address [facility]/ZIP Co de Phone Number [facility] [address] [place] [address] * PTT (06/10/2023 6:27 EST) PTT 29 26 - 37 secs 06/10/2023 7:39 EST [facility] Blood VENOUS BLOOD / Unknown Venipuncture / Unknown 06/10/2023 6:27 EST 06/10/2023 7:00 EST Fahad Bedolla MD HEMATOLOGY & PF4 ORD ERABLES Performing Organization Address [facility] de Phone Number [facility] [address] [place] [address] * PROTIME (06/10/2023 6:27 EST) Pathologist [facility] I.N.R. 1.1 0.9 - 1.1 Ratio 06/10/2023 7:39 EST [facility] Pro Time 12.3 9.7 - 12.8 secs 06/10/2023 7:39 EST [facility] Blood VENOUS BLOOD / Unknown Venipuncture / Unknown 06/10/2023 6:27 EST 06/10/2023 7:00 EST Narrative [facility] - 06/10/2023 7:39 EST Moderate Intensity Coumadin INR = 2.0-3.0 Adjustments in anticoagulant therapy dose should be based on the INR and NOT on the Protime. Fahad Bedolla MD HEMATOLOGY & PF4 ORD ERABLES Performing Organization Address City/[facility]/ZIP Co de Phone Number [facility] [address] [place] [address] * TYPE AND SCREEN (06/10/2023 4:24 EST) ABO A 06/10/2023 5:10 EST [facility] Rh Factor Positive 06/10/2023 5:10 EST [facility] Antibody Screen Negative 06/10/2023 5:10 EST [facility] Specimen Expires: 06/13/2023 @ 23:59 06/10/2023 5:10 EST [facility] BLOOD BANK Blood VENOUS BLOOD / Unknown Venipuncture / Unknown 06/10/2023 4:24 EST 06/10/2023 4:30 EST Cece Lynn PA-C BLOOD BANK TESTS Performing Organization Address City/[facility] Co de Phone Number [facility] BLOOD BANK [address] [place] [address] * BASIC METABOLIC PANEL (BMP) (06/10/2023 4:24 EST) Sodium 139 136 - 145 mmol/L 06/10/2023 4:45 [facility] Potassium 4.2 3.5 - 5.0 mmol/L 06/10/2023 4:45 [facility] Chloride 106 96 - 110 mmol/L 06/10/2023 4:45 [facility] CO2 Total 24 22 - 32 mmol/L 06/10/2023 4:45 [facility] Anion Gap 9 5 - 14 mmol/L 06/10/2023 4:45 [facility] Glucose 96 70 - 99 mg/dl 06/10/2023 4:45 [facility] Calcium 9.2 8.5 - 10.5 mg/dL 06/10/2023 4:45 [facility] BUN 10 10 - 26 mg/dL 06/10/2023 4:45 [facility] Creatinine 1.20 0.66 - 1.25 mg/dL 06/10/2023 4:45 [facility] eGFR 83 >60 mL/min/1.73 m2 06/10/2023 4:45 [facility] Blood VENOUS BLOOD / Unknown Venipuncture / Unknown 06/10/2023 4:24 EST 06/10/2023 4:25 EST Cece Lynn PA-C CHEMISTRY & BLOOD GA S ORDERABLES Performing Organization Address City/[facility]/ZIP Co de Phone Number [facility] [address] [place] [address] * (ABNORMAL) COMPLETE BLOOD COUNT AND DIFFERENTIAL (06/10/2023 4:24 [facility]) WBC 8.71 4.00 - 10.40 K/cmm 06/10/2023 4:38 [facility] RBC 4.78 4.36 - 5.78 M/cmm 06/10/2023 4:38 [facility] Hemoglobin 13.8 13.8 - 17.3 g/dL 06/10/2023 4:38 [facility] HCT 40.5 39.5 - 50.2 % 06/10/2023 4:38 [facility] MCV 85 81 - 95 fL 06/10/2023 4:38 [facility] MCH 28.9 27.6 - 33.0 pg 06/10/2023 4:38 [facility] MCHC 34.1 32.8 - 36.4 g/dL 06/10/2023 4:38 [facility] RDW-CV 12.5 <14.2 % 06/10/2023 4:38 [facility] RDW-SD 38.0 <46.0 fl 06/10/2023 4:38 [facility] PLT 255 141 - 377 K/cmm 06/10/2023 4:38 [facility] MPV 10.2 9.5 - 12.7 fL 06/10/2023 4:38 [facility] % Neutrophils 60.6 % 06/10/2023 4:38 [facility] % Lymphocytes 22.6 % 06/10/2023 4:38 [facility] % Monocytes 8.0 % 06/10/2023 4:38 [facility] % Eosinophils 5.9 % 06/10/2023 4:38 [facility] % Basophils 1.4 % 06/10/2023 4:38 [facility] % Immature Grans 1.5 % 06/10/20 4:38 [facility] Absolute Neutrophils 5.28 2.20 - 8.85 K/cmm 06/10/2023 4:38 [facility] Absolute Lymphocytes 1.97 1.09 - 3.30 K/cmm 06/10/2023 4:38 [facility] Absolute Monocytes 0.70 0.10 - 0.80 K/cmm 06/10/2023 4:38 [facility] Absolute Eosinophils 0.51 0.03 - 0.61 K/cmm 06/10/2023 4:38 [facility] ABS Basophils 0.12(H) 0.01 - 0.11 K/cmm 06/10/2023 4:38 [facility] Absolute Immature Grans 0.13(H) 0.00 - 0.06 K/cmm 06/10/2023 4:38 [facility] Type of Differential: Auto 06/10/2023 4:38 [facility] Blood VENOUS BLOOD / Unknown Venipuncture / Unknown 06/10/2023 4:24 EST 06/10/2023 4:25 EST Cece Lynn PA-C PACKAGES & DNA PROBE ORDERABLES Performing Organization Address City/[facility]/[place] Co de Phone Number [facility] [address] [place] [address] * PROTIME (06/10/2023 4:24 EST) I.N.R. 1.1 0.9 - 1.1 Ratio 06/10/2023 4:55 EST [facility] Pro Time 12.5 9.7 - 12.8 secs 06/10/2023 4:55 EST [facility] Blood VENOUS BLOOD / Unknown Venipuncture / Unknown 06/10/2023 4:24 EST 06/10/2023 4:30 EST Narrative [facility] - 06/10/2023 4:55 EST Moderate Intensity Coumadin INR = 2.0-3.0 Adjustments in anticoagulant therapy dose should be based on the INR and NOT on the Protime. Cece Lynn PA-C HEMATOLOGY & PF4 ORD ERABLES [facility] [address] [place] [address] * CT CERVICAL SPINE WO CONTRAST (06/10/2023 1:30 EST) Anatomical Region Laterality Modality Computed Tomogra phy 06/10/2023 9:09 EST Impressions 06/10/2023 9:09 EST No acute cervical spine fracture. Redemonstrated multilevel degenerative changes, causing severe spinal canal stenosis at C6-C7. I have personally reviewed the images and the above interpretation and agree with the findings. [id number] Narrative 06/10/2023 9:09 EST EXAM: CT CERVICAL [...] the above interpretation andagree with the findings. [id number] Fahad WEEMS CT ORDERABLES * XR CERVICAL [...] above interpretation and agree with the findings. [id number] Narrative 06/10/2023 9:02 EST CERVICAL SPINE, 3 [...] the above interpretation andagree with the findings. [id number] Fahad Bedolla MD IMG DIAGNOSTIC IMAGI NG ORDERABLES documented in this [...] of spinal cord documented in this encounter Admitting Diagnoses Diagnosis [...] Until Discontinued, Routine Given 06/11/2023 9:06 EST 500 mg cholecalciferol (Vitamin D3) tablet 2,000 Units 2,000 Units, oral, DAILY, First dose on Tue06/10/23 at 0900, Until Discontinued, Routine Given 06/11/2023 9:07 EST 2,000 Units gelatin absorbable powder (SURGIFOAM) PRN, Starting on Tue06/10/23 at 1632, Until Tue06/10/23 at 1747, Intraprocedure Given 06/10/2023 16:32 EST 2 Each influenza vaccine quad 2022- (PF) (6 mos+) [...] New Bag 06/10/2023 15:02 EST 25 mL/hr methocarbamoL (ROBAXIN) tablet 1,000 mg 1,000 mg, [...] mg Given 06/11/2023 1:29 EST 5 mg sodium chloride 0.9 % irrigation PRN, Starting on Tue06/10/23 at 1633, Until Tue06/10/23 at 1747, Routine, Intraprocedure Given 06/10/2023 16:33 EST 1,000 mL thrombin (bovine) 5,000 unit topical solution PRN, Starting on Tue06/10/23 at 1633, Until Tue06/10/23 at 1747, Intraprocedure Given 06/10/2023 16:33 EST 5,000 Units zinc sulfate (ZINCATE) capsule 220 mg 220 [...] - Provider: Yumiko De La Fuente RN)1447 (MAR Hold - Provider: Automatic Transfer Provider Hn - Reason: Patient off unit)1800 (See Alternative - Provider: Yumiko De La Fuente RN)1824 (See Alternative - Provider: Natalia Hunter RN)1904 (MAR Unhold - Provider: Automatic Transfer Provider Hn) 0011 (See Alternative - Provider: Lyly Qureshi RN)0550 (See Alternative - Provider: Lyly Qureshi RN)1221 (See Alternative - Provider: Kieran Bender RN)1800 (Canceled Entry [...] La Fuente RN - Reason: Patient/family refused)1447 (MAR Hold - Provider: Automatic Transfer Provider Hn [...] 2 g, intravenous, Administer over 5 Minutes, FURNACE SETTER TO O.R., 1 dose, First dose on [...] 194 (Given - Provider: Lyly Qureshi RN) 0333 (Given - Provider: Lyly Qureshi RN)1019 (Given [...] De La Fuente RN - Reason: NPO)1447 ([facility] Hold - Provider: Automatic Transfer Provider Hn - Reason: Patient off unit)1904 ([facility] Unhold - Provider: Automatic Transfer Provider Hn)2057 (Not Given - Provider: Lyly Qureshi RN - Reason: Patient/family refused) 0908 (Not Given - Provider: Kieran Bender RN - Reason: Patient/family refused) influenza vaccine quad 2022- (PF) (6 mos+) IM injection-syringe 0.5 mL 0.5 mL, intramuscular, Once (Without Time Specified), 1 dose, Starting on Tue06/10/23 at 1103, Until Tue06/11/23 at 1835, Routine 1447 ([facility] Hold - Provider: Automatic Transfer Provider Hn - Reason: Patient off unit)190 ([facility] Unhold - Provider: Automatic Transfer Provider Hn) [...] De La Fuente RN - Reason: NPO)1447 ([facility] Hold - Provider: Automatic Transfer Provider Hn - Reason: Patient off unit)190 ([facility] Unhold - Provider: Automatic Transfer Provider Hn) 0907 (Given - Provider: Kieran Bender RN) polyethylene glycol 3350 (MIRALAX) packet 17 g 17 g, oral, DAILY, First dose on Tue06/10/23 at 0900, Until Discontinued, Routine 0825 (Not Given - Provider: Yumiko De La Fuente RN - Reason: NPO)1447 ([facility] Hold - Provider: Automatic Transfer Provider Hn - Reason: Patient off unit)1904 ([facility] Unhold - Provider: Automatic Transfer Provider Hn) [...] (AUG Unhold - Provider: Automatic Transfer Provider Hn)205 (Not Given - Provider: Lyly Qureshi RN [...] 0907 (Given - Provider: Kieran Bender RN) Continuous Medication Order 06/09/2023 06/10/2023 06/11/2023 electrolyte-A (PLASMALYTE-A) solution (CANCELED) at 75 mL/hr, intravenous, CONTINUOUS, Starting on Tue06/10/23 at 0530, Until Tue06/10/23 at 1842, Routine 0525 (New Bag - Provider: Devonte Dupont RN)0714 (Rate Documented - Provider: Yumiko De La Fuente RN)1428 (Completed - Provider: Yumiko De La Fuente RN) lactated ringers (LR) infusion at 25 mL/hr, intravenous, CONTINUOUS, Starting on Tue06/10/23 at 1530, Until 06/11/23 at 1835, Routine 1502 (New Bag - Provider: Earline Boo, TEE)1515 (Continued by Anesthesia - Provider: Cheri Bowden)1805 (Completed - Provider: Baldemar De MD) PRN Medication Order 06/09/2023 06/10/2023 06/11/2023 bisacodyL (DULCOLAX) suppository 10 mg 10 mg, rectal, DAILY PRN, Starting on Tue06/10/23 at 0508, Until 06/11/23 at 1835, Constipation, Routine 1447 ([facility] Hold - Provider: Automatic Transfer Provider Hn - Reason: Patient off unit)190 ([facility] Unhold - Provider: Automatic Transfer Provider Hn) calcium carbonate (TUMS) tablet 500 mg (200 mg elemental calcium) 2 Tablet 2 Tablet, oral, EVERY 2 HOURS PRN, Starting on Tue06/10/23 at 0508, Until 06/11/23 at 1835, epigastric stress, Routine 1447 ([facility] Hold - Provider: Automatic Transfer Provider Hn - Reason: Patient off unit)190 ([facility] Unhold - Provider: Automatic Transfer Provider Hn) [...] 1835, peripheral intravenous catheter placement, Routine 1447 ([facility] Hold - Provider: Automatic Transfer Provider Hn - Reason: Patient off unit)1903 ([facility] Unhold - Provider: Automatic Transfer Provider Hn) methocarbamoL (ROBAXIN) tablet 1,000 mg 1,000 mg, oral, EVERY 6 HOURS PRN, Starting on Tue06/10/23 at 0508, Until 06/11/23 at 1835, muscle spasms, Routine 1447 ([facility] Hold - Provider: Automatic Transfer Provider Hn - Reason: Patient off unit)190 ([facility] Unhold - Provider: Automatic Transfer Provider Hn)2053 (Given - Provider: Lyly Qureshi, RN) 0905 (Given - Provider: Kieran Bender RN) ondansetron (PF) (ZOFRAN) injection 4 mg(Linked Group 2) 4 mg, intravenous, EVERY 6 HOURS PRN, Starting on Tue06/10/23 at 0508, Until 06/11/23 at 1835, Nausea, Routine 1447 ([facility] Hold - Provider: Automatic Transfer Provider Hn - Reason: Patient off unit)190 ([facility] Unhold - Provider: Automatic Transfer Provider Hn) ondansetron (ZOFRAN-ODT) disintegrating tablet 4 mg(Linked Group 2) 4 mg, oral, EVERY 6 HOURS PRN, Starting on Tue06/10/23 at 0508, Until 06/11/23 at 1835, Nausea, Routine 1447 ([facility] Hold - Provider: Automatic Transfer Provider Hn - Reason: Patient off unit)1904 (MAR Unhold - Provider: Automatic Transfer Provider Hn) oxyCODONE (ROXICODONE) immediate release tablet 5-15 mg 5-15 mg, oral, EVERY 3 HOURS PRN, Starting on Tue06/10/23 at 0508, Until 06/11/23 at 1835, Pain, Routine 1447 ([facility] Hold - Provider: Automatic Transfer Provider Hn - Reason: Patient off unit)1904 ([facility] Unhold - Provider: Automatic Transfer Provider Hn) 0129 (Given - Provider: Lyly Qureshi RN)0550 (Given - Provider: Lyly Qureshi RN)1335 [...] 1 06/10/2023 acetaminophen (TYLENOL) tablet 1,000 mg 3 1 08/11/2022 ascorbic acid (vitamin C) (V ITAMIN C) tablet 500 mg 1 06/10/2023 atropine 0.1 mg/mL syringe 0.5 mg 1 023 bisacodyL (DULCOLAX) suppository 10 mg 1 calcium carbonate (TUMS) tab let 500 mg (200 mg elemental calcium) 2 Tablet 1 06/10/2023 ceFAZolin (ANCEF) syringe 2 g 1 06/10/2023 ceFAZolin in dextrose (iso-o s) piggyback 2 g/100 mL 1 06/10/2023 cholecalciferol (Vitamin D3) tablet 2,000 Units 1 06/10/2023 diphenhydrAMINE (BENADRYL) i njection 12.5 mg 1 06/10/2023 docusate sodium (COLACE) capsule 200 mg 1 1 08/11/2022 electrolyte-A (PLASMALYTE-A) solution 1 fentaNYL citrate (PF) injection 25-50 mcg 1 06/10/2023 HYDROmorphone (DILAUDID) tablet 2-4 mg 1 HYDROmorphone (PF) (DILAUDID ) 0.5 mg/0.5 mL syringe 0.3-0.5 mg 1 06/10/2023 influenza vaccine quad 2022- (PF) (6 mos+) IM injection-syringe 0.5 mL 1 06/10/2023 lactated ringers (LR) infusion 2 06/10/2023 lactated ringers BOLUS 1,000 mL 1 3 lidocaine (PF) 10 mg/mL (1 % ) injection 2 mg 1 06/10/2023 methocarbamoL (ROBAXIN) tablet 1,000 mg 1 1 08/11/2022 Multivitamins with Minerals tablet 1 Tablet 1 06/10/2023 naloxone (NARCAN) injection 0.2 mg 1 2022 ondansetron (PF) (ZOFRAN) injection 4 mg 2 06/10/2023 ondansetron (ZOFRAN-ODT) dis integrating tablet 4 mg 1 06/10/2023 oxyCODONE (ROXICODONE) immed iate release tablet 5-15 mg 1 06/10/2023 polyethylene glycol 3350 (OR RALAX) packet 17 g 1 06/10/2023 senna (SENOKOT) tablet 2 Tablet 1 zinc sulfate (ZINCATE) capsule 220 mg 1 Diet Count Last Ordered Date First Orde [...] 06/10/2023 documented in this encounter Care Teams Bookkeeping Clerk Relationship Specialty Start Date End Date None, Provider PCP - General 06/09/23 documented as of this encounter
== END ==
PROVIDERS: Visit Provider Orthopaedic Surgery Orthopaedic Surgery of the Spine
DX: Z98.1 Arthrodesis status (principal); M54.2 Cervicalgia
CPT/HCPCS: 72141